=== PATIENT | female | born 1950 | race Caucasian/White ===

== ENCOUNTER 2016-11-27 11:26 | Inpatient (IN) | payer MEDICARE, OTHER ==
[2016-11-27] MEDS ORDERED: DEXTROSE 40% GEL 15 GM TUBE PO PRN (12:38)
[2016-11-27] MEDS ORDERED: DEXTROSE 40% GEL 15 GM TUBE X 2 PO PRN (12:38)
[2016-11-27] MEDS ORDERED: INSULIN LISPRO 100 UNIT/ML 3 ML VIAL SUBCUT PRN (12:38)
[2016-11-27] MEDS ORDERED: DEXTROSE 50%-WATER SYRINGE 25 GM/50 ML DOSE IV PRN (12:38)
[2016-11-27] MEDS ORDERED: DEXTROSE 50%-WATER SYRINGE 12.5 GM/25 ML DOSE IV PRN (12:38)
[2016-11-27] MEDS ORDERED: GLUCAGON,HUMAN RECOMB 1 MG INJ IM PRN (12:38)
--- NOTE | 2016-11-27 12:41 | RADIOLOGY REPORT (SQ) ---
EXAM DESCRIPTION: CHEST SINGLE VIEW COMPLETED DATE/TIME: 11/27/2016 12:27 pm REASON FOR STUDY: HYPOTENSION COMPARISON: 01/07/2016 EXAM PARAMETERS: NUMBER OF VIEWS: One view. TECHNIQUE: Single frontal radiographic view of the chest acquired. RADIATION DOSE: NA LIMITATIONS: None. FINDINGS: LUNGS AND PLEURA: No opacities, masses or pneumothorax. No pleural effusion. MEDIASTINUM AND HILAR STRUCTURES: No masses. Contour normal. HEART AND VASCULAR STRUCTURES: Heart normal in size. Normal vasculature. BONES: No acute findings. HARDWARE: None in the chest. OTHER: No other significant finding. IMPRESSION: NO ACUTE RADIOGRAPHIC FINDING IN THE CHEST. TECHNICAL DOCUMENTATION: JOB ID: [id number]
[2016-11-27] MEDS ORDERED: LEVOFLOXACIN 750 MG/D5W RTU 750 MG/150 ML RTUPB IV ONE (14:00)
[2016-11-27] MEDS: NORMAL SALINE 1000 ML 1,000 ML IV PRN (14:14)
[2016-11-27 14:23] LABS: ARTERIAL BLOOD BASE EXCESS -3.2 mmol/L; ARTERIAL BLOOD O2 SATURATION 96.4 % (94-98)
[2016-11-27 16:39] LABS: HEMATOCRIT 39.1 % (36.0-47.0); HEMOGLOBIN 13.5 g/dL (12.0-15.5); HGB HCT DIFFERENCE 1.4; MEAN CORPUSCULAR HEMOGLOBIN 32.7 pg (27.0-33.4); MEAN CORPUSCULAR HGB CONC 34.5 g/dL (32.0-36.0); MEAN CORPUSCULAR VOLUME 95 fl (80-97); RED BLOOD COUNT 4.13 10^6/uL (3.72-5.28); RED CELL DISTRIBUTION WIDTH 13.4 % (11.5-14.0); WHITE BLOOD COUNT 24.9 10^3/uL (4.0-10.5)
[2016-11-27 16:55] LABS: ALANINE AMINOTRANSFERASE 14 U/L (9-52); ALBUMIN 3.1 g/dL (3.5-5.0); ALKALINE PHOSPHATASE 60 U/L (38-126); ANION GAP 11 (5-19); ASPARTATE AMINO TRANSFERASE 27 U/L (14-36); BILIRUBIN,DIRECT 0.4 mg/dL (0.0-0.4); BILIRUBIN,TOTAL 0.5 mg/dL (0.2-1.3); BLOOD UREA NITROGEN 14 mg/dL (7-20); CALCIUM 9.6 mg/dL (8.4-10.2); CARBON DIOXIDE 24 mmol/L (22-30); CHLORIDE 91 mmol/L (98-107); CREATINE KINASE 290 U/L (30-135); CREATININE RESULT 0.77 mg/dL (0.52-1.25); GLUCOSE 111 mg/dL (75-110); POTASSIUM 4.9 mmol/L (3.6-5.0); SODIUM 125.8 mmol/L (137-145); TOTAL PROTEIN 6.8 g/dL (6.3-8.2)
[2016-11-27 17:07] LABS: CREATINE KINASE MB 3.28 ng/mL (<4.55)
[2016-11-27 17:12] LABS: TROPONIN I < 0.012 ng/mL
[2016-11-27 17:26] LABS: THYROID STIMULATING HORMONE 3.8 uIU/mL (0.47-4.68)
[2016-11-27] MEDS: NYSTATIN TOPICAL POWDER 15 GM TP SCH (18:14)
--- NOTE | 2016-11-27 18:59 | EKG REPORT ---
SEVERITY:- ABNORMAL ECG - SINUS TACHYCARDIA RIGHT BUNDLE BRANCH BLOCK ST DEPRESSION, CONSIDER ISCHEMIA, ANT-LAT LDS : Confirmed by: Tanya You MD 27-Nov-2016 18:58:05
[2016-11-27] MEDS ORDERED: (PENDING PHARMACY ID) (Levothyroxine Sodium [Synthroid] 125 MCG) PO SCH (21:00)
--- NOTE | 2016-11-27 21:15 | PDOC H&P ---
History of Present Illness Admission Date/PCP: 11/27/16 11:26 SHA BRAVO MD History of Present Illness: NGHIA DAVID is a 65 year old female, She has history of morbid obesity, the body mass index 43.2, seizure disorder, type 2 diabetes mellitus she was brought to the office today by her for evaluation of this patient, suspect that she may have UTI, she has bedsores. She is essentially nonambulatory and self neglect as well , said she would not get out of bed,. She does not take any shower, in the office she was evaluated she has stage II sacral pressure ulcer she has offensive body odor especially in the perineum ,smell like yeast infection, she was admitted directly from the office to the hospital. The hemogram showed WBC of 24,000 the potential source of the infection is the urine the urine appearance looks cloudy there was also hyponatremia,CXR she was clear suggesting no pneumonia ABG was normal. Past Medical History Cardiac Medical History: Reports: Hypertension Neurological Medical History: Reports: Seizures - BED PADDED ON BOTH SIDES Endocrine Medical History: Reports: Diabetes Mellitus Type 2, Hypothyroidism Renal/ Medical History: Denies: End Stage Renal Disease Musculoskeltal Medical History: Reports: Arthritis Psychiatric Medical History: Reports: Depression Past Surgical History Past Surgical History: Reports: Cholecystectomy, Orthopedic Surgery - Toe surgery, Tonsillectomy Denies: Hysterectomy Social History Smoking Status: Former Smoker Number of Years Smokin Last Time Smoked: 05/03/1992 Frequency of Alcohol Use: None Hx Recreational Drug Use: No Drugs: None Hx Prescription Drug Abuse: No Family History Family History: Reviewed & Not Pertinent Parental Family History Reviewed: Yes Children Family History Reviewed: Yes Sibling(s) Family History Reviewed.: Yes Medication/Allergy Home Medications: Aspirin [Ecotrin 81 mg EC Tablet] 81 mg PO DAILY 03/12/12 Trazodone HCl 100 mg PO QHS 05/02/15 Omeprazole 40 mg PO DAILY 06/29/15 Divalproex Sodium [Divalproex Sodium ER] 250 mg PO Q6 11/27/16 Levothyroxine Sodium [Synthroid] 125 mcg PO DAILY 11/27/16 Allergies/Adverse Reactions: erythromycin base [Erythromycin Base] Allergy (Verified 05/02/15 00:44) Iodinated Contrast- Oral and IV Dye [IV Dye, Iodine Containing] Allergy ( Verified 05/02/15 00:44) Review of Systems Constitutional: PRESENT: chills, weight gain Eyes: ABSENT: visual disturbances Ears: ABSENT: hearing changes Cardiovascular: ABSENT: chest pain, dyspnea on exertion, edema, orthropnea, palpitations Respiratory: ABSENT: cough, hemoptysis Gastrointestinal: ABSENT: abdominal pain, constipation, diarrhea, hematemesis, hematochezia, nausea, vomiting Genitourinary: ABSENT: dysuria, hematuria Musculoskeletal: ABSENT: joint swelling Integumentary: ABSENT: rash, wounds Neurological: PRESENT: tingling. ABSENT: abnormal gait, abnormal speech, confusion, dizziness, focal weakness, syncope Psychiatric: ABSENT: anxiety, depression, homidical ideation, suicidal ideation Endocrine: ABSENT: cold intolerance, heat intolerance, menstrual abnormalities, polydipsia, polyuria Hematologic/Lymphatic: ABSENT: easy bleeding, easy bruising, lymphadenopathy Physical Exam Vital Signs: Temp Pulse Resp BP Pulse Ox 97.7 F 110 H 20 131/90 H 99 11/27/16 15:33 11/27/16 15:33 11/27/16 15:33 11/27/16 15:33 11/27/16 15:33 Intake & Output 11/26/16 11/27/16 11/28/16 06:59 06:59 06:59 Intake Total 324 Balance 324 Weight 114.2 kg General appearance: PRESENT: obese Head exam: PRESENT: atraumatic, normocephalic Eye exam: PRESENT: PERRLA Mouth exam: PRESENT: dry mucosa Respiratory exam: PRESENT: clear to auscultation luna Cardiovascular exam: PRESENT: RRR, +S1, +S2 Vascular exam: PRESENT: normal capillary refill GI/Abdominal exam: PRESENT: normal bowel sounds, soft Rectal exam: PRESENT: deferred Gentrourinary exam: PRESENT: other - Erythema intertrigo Extremities exam: PRESENT: other Neurological exam: PRESENT: alert, CN II-XII grossly intact Psychiatric exam: PRESENT: flat affect Skin exam: PRESENT: dry, intact, mottled, pallor, skin tears, warm, other - Stage II pressure ulcers in the sacrum Results Laboratory Results: 11/27/16 16:15 11/27/16 16:15 11/27/16 11/27/16 11/27/16 13:10 16:15 16:15 WBC 24.9 H RBC 4.13 Hgb 13.5 Hct 39.1 MCV 95 MCH 32.7 MCHC 34.5 RDW 13.4 Plt Count 353 Carbonic Acid 1.17 HCO3/H2CO3 Ratio 18:1 ABG pH 7.37 ABG pCO2 38.9 ABG pO2 87.3 ABG HCO3 21.7 ABG O2 Saturation 96.4 ABG Base Excess -3.2 FiO2 ROOM AIR Sodium 125.8 L Potassium 4.9 Chloride 91 L Carbon Dioxide 24 Anion Gap 11 BUN 14 Creatinine 0.77 Est GFR ( Amer) > 60 Est GFR (Non-Af Amer) > 60 Glucose 111 H Calcium 9.6 Total Bilirubin 0.5 AST 27 ALT 14 Alkaline Phosphatase 60 Total Protein 6.8 Albumin 3.1 L TSH Free T4 11/27/16 16:15 WBC RBC Hgb Hct MCV MCH MCHC RDW Plt Count Carbonic Acid HCO3/H2CO3 Ratio ABG pH ABG pCO2 ABG pO2 ABG HCO3 ABG O2 Saturation ABG Base Excess FiO2 Sodium Potassium Chloride Carbon Dioxide Anion Gap BUN Creatinine Est GFR ( Amer) Est GFR (Non-Af Amer) Glucose Calcium Total Bilirubin AST ALT Alkaline Phosphatase Total Protein Albumin TSH 3.80 Free T4 1.43 11/27/16 11/27/16 16:15 16:15 Creatine Kinase 290 H CK-MB (CK-2) 3.28 Troponin I < 0.012 Impressions: Chest X-Ray 11/27/16 11:52 IMPRESSION: NO ACUTE RADIOGRAPHIC FINDING IN THE CHEST. Assessment & Plan - Diagnosis (1) Urinary tract infection Qualifiers: Urinary tract infection type: acute cystitis Hematuria presence: without hematuria Qualified Code(s): N30.00 - Acute cystitis without hematuria Is this a current diagnosis for this admission?: Yes (2) Leukemoid reaction Is this a current diagnosis for this admission?: YesPlan: She has elevated white blood cell count most likely due to infection from UTI she will empirically be treated with IV antibiotic (3) Sacral pressure ulcer Qualifiers: Pressure ulcer stage: stage 2 Qualified Code(s): L89.152 - Pressure ulcer of sacral region, stage 2 Is this a current diagnosis for this admission?: Yes (4) Hypothyroidism Qualifiers: Hypothyroidism type: acquired Qualified Code(s): E03.9 - Hypothyroidism, unspecified Is this a current diagnosis for this admission?: Yes (5) Hyponatremia Is this a current diagnosis for this admission?: Yes
[2016-11-27] MEDS ORDERED: ASPIRIN 81 MG TABLET, ENT COATED PO ONE (22:00)
[2016-11-27] MEDS ORDERED: ENOXAPARIN SODIUM INJ 40 MG/0.4 ML DISP.SYRIN SUBCUT ONE (22:00)
[2016-11-27 22:30] LABS: THYROID STIMULATING HORMONE 6.09 uIU/mL (0.47-4.68)
[2016-11-27] MEDS ORDERED: LANSOPRAZOLE 30 MG TAB.RAP.DR PO ONE (22:30)
[2016-11-27] MEDS: TRAZODONE HCL 50 MG TABLET PO SCH (22:56)
[2016-11-28 00:38] LABS: HEMATOCRIT 33.8 % (36.0-47.0); HEMOGLOBIN 11.8 g/dL (12.0-15.5); HGB HCT DIFFERENCE 1.6; MEAN CORPUSCULAR HEMOGLOBIN 32.9 pg (27.0-33.4); MEAN CORPUSCULAR HGB CONC 34.9 g/dL (32.0-36.0); MEAN CORPUSCULAR VOLUME 94 fl (80-97); RED BLOOD COUNT 3.58 10^6/uL (3.72-5.28); RED CELL DISTRIBUTION WIDTH 13.4 % (11.5-14.0); WHITE BLOOD COUNT 15.9 10^3/uL (4.0-10.5)
[2016-11-28] MEDS: DIVALPROEX SODIUM 250 MG TAB.SR.24H PO SCH ×5 (00:40→23:01)
[2016-11-28 00:49] LABS: PROTHROMBIN TIME 14.4 SEC (11.4-15.4)
[2016-11-28 00:50] LABS: PARTIAL THROMBOPLASTIN TIME 39.4 SEC (23.5-35.8)
[2016-11-28 01:04] LABS: CREATININE RESULT 0.82 mg/dL (0.52-1.25)
[2016-11-28 01:43] LABS: CREATINE KINASE MB 4.55 ng/mL (<4.55)
[2016-11-28 01:46] LABS: TROPONIN I < 0.012 ng/mL
[2016-11-28] MEDS: NORMAL SALINE 1000 ML 1,000 ML IV PRN (02:47)
[2016-11-28 03:18] LABS: APPEARANCE,URINE SLIGHTLY-CLOUDY; BILIRUBIN,URINE NEGATIVE (NEGATIVE); GLUCOSE, URINE NEGATIVE (NEGATIVE); KETONES,URINE TRACE mg/dL (NEGATIVE); LEUKOCYTE ESTERASE,URINE TRACE (NEGATIVE); NITRITE,URINE NEGATIVE (NEGATIVE); PROTEIN,URINE NEGATIVE (NEGATIVE); URINE SPECIFIC GRAVITY 1.023; UROBILINOGEN,URINE NEGATIVE mg/dL (<2.0)
[2016-11-28] MEDS: LANSOPRAZOLE 30 MG TAB.RAP.DR PO SCH (06:47)
[2016-11-28] MEDS: ASPIRIN 81 MG TABLET, ENT COATED PO SCH (08:53)
[2016-11-28] MEDS: LEVOTHYROXINE SODIUM 0.1 MG TABLET PO SCH (08:54)
[2016-11-28] MEDS: LEVOTHYROXINE SODIUM 0.025 MG TABLET PO SCH (08:54)
[2016-11-28] MEDS: LEVOFLOXACIN 750 MG/D5W RTU 750 MG/150 ML RTUPB IV SCH (08:54)
[2016-11-28] MEDS: ENOXAPARIN SODIUM INJ 40 MG/0.4 ML DISP.SYRIN SUBCUT SCH (08:55)
[2016-11-28] MEDS: NYSTATIN TOPICAL POWDER 15 GM TP SCH ×2 (09:03→18:19)
[2016-11-28 09:43] LABS: CREATINE KINASE MB 3.04 ng/mL (<4.55); TROPONIN I 0.016 ng/mL
--- NOTE | 2016-11-28 15:12 | PDOC PROGRESS REPORT ---
Subjective Progress Note for:: 11/28/16 Subjective:: Patient denied any fever or chills. No chest pain or difficulty with breathing. No nausea, vomiting or abdominal pain. Appetite and p.o intake remain poor. Physical Exam Vital Signs: Temp Pulse Resp BP Pulse Ox 98.3 F 73 18 114/71 100 11/28/16 11:13 11/28/16 11:13 11/28/16 11:13 11/28/16 11:13 11/28/16 11:13 Intake & Output 11/27/16 11/28/16 11/29/16 06:59 06:59 06:59 Intake Total 1682 236 Output Total 200 50 Balance 1482 186 Weight 119 kg General appearance: PRESENT: no acute distress, cooperative, morbidly obese Head exam: PRESENT: atraumatic, normocephalic Eye exam: PRESENT: EOMI, PERRLA Mouth exam: PRESENT: moist Respiratory exam: PRESENT: clear to auscultation luna, decreased breath sounds - at lung bases Cardiovascular exam: PRESENT: RRR, +S1, +S2 Vascular exam: PRESENT: normal capillary refill. ABSENT: pallor GI/Abdominal exam: PRESENT: normal bowel sounds, soft. ABSENT: distended, guarding, mass, organolmegaly, rebound, tenderness Extremities exam: PRESENT: pedal edema Musculoskeletal exam: PRESENT: deformity - due to multiple joints involvement with arthritis, tenderness - palpation of her legs. ABSENT: ambulatory Neurological exam: PRESENT: alert, awake, oriented to person, oriented to place , oriented to time, oriented to situation, CN II-XII grossly intact. ABSENT: motor sensory deficit Psychiatric exam: PRESENT: appropriate affect, normal mood. ABSENT: homicidal ideation, suicidal ideation Skin exam: PRESENT: dry, erythema - left leg with expressed tenderness to palpation., warm Results Laboratory Results: 11/28/16 00:28 11/28/16 00:28 11/27/16 11/27/16 11/27/16 16:15 16:15 16:15 WBC 24.9 H RBC 4.13 Hgb 13.5 Hct 39.1 MCV 95 MCH 32.7 MCHC 34.5 RDW 13.4 Plt Count 353 Sodium 125.8 L Potassium 4.9 Chloride 91 L Carbon Dioxide 24 Anion Gap 11 BUN 14 Creatinine 0.77 Est GFR ( Amer) > 60 Est GFR (Non-Af Amer) > 60 Glucose 111 H Calcium 9.6 Total Bilirubin 0.5 AST 27 ALT 14 Alkaline Phosphatase 60 Total Protein 6.8 Albumin 3.1 L TSH 3.80 Free T4 1.43 Urine Color Urine Appearance Urine pH Ur Specific [place] Urine Protein Urine Glucose (UA) Urine Ketones Urine Blood Urine Nitrite Ur Leukocyte Esterase Urine WBC (Auto) Urine RBC (Auto) 11/27/16 11/28/16 11/28/16 16:15 00:28 00:28 WBC 15.9 H RBC 3.58 L Hgb 11.8 L Hct 33.8 L MCV 94 MCH 32.9 MCHC 34.9 RDW 13.4 Plt Count 351 Sodium Potassium Chloride Carbon Dioxide Anion Gap BUN Creatinine 0.82 Est GFR ( Amer) > 60 Est GFR (Non-Af Amer) > 60 Glucose Calcium Total Bilirubin AST ALT Alkaline Phosphatase Total Protein Albumin TSH 6.09 H Free T4 1.78 Urine Color Urine Appearance Urine pH Ur Specific [place] Urine Protein Urine Glucose (UA) Urine Ketones Urine Blood Urine Nitrite Ur Leukocyte Esterase Urine WBC (Auto) Urine RBC (Auto) 11/28/16 02:45 WBC RBC Hgb Hct MCV MCH MCHC RDW Plt Count Sodium Potassium Chloride Carbon Dioxide Anion Gap BUN Creatinine Est GFR ( Amer) Est GFR (Non-Af Amer) Glucose Calcium Total Bilirubin AST ALT Alkaline Phosphatase Total Protein Albumin TSH Free T4 Urine Color YELLOW Urine Appearance SLIGHTLY-CLOUDY Urine pH 6.0 Ur Specific [place] 1.023 Urine Protein NEGATIVE Urine Glucose (UA) NEGATIVE Urine Ketones TRACE H Urine Blood NEGATIVE Urine Nitrite NEGATIVE Ur Leukocyte Esterase TRACE H Urine WBC (Auto) 13 Urine RBC (Auto) 6 11/27/16 11/27/16 11/28/16 16:15 16:15 00:28 Creatine Kinase 290 H 742 H CK-MB (CK-2) 3.28 Troponin I < 0.012 11/28/16 11/28/16 11/28/16 00:28 08:26 08:26 Creatine Kinase 779 H CK-MB (CK-2) 4.55 3.04 Troponin I < 0.012 0.016 Impressions: Chest X-Ray 11/27/16 11:52 IMPRESSION: NO ACUTE RADIOGRAPHIC FINDING IN THE CHEST. Assessment & Plan - Diagnosis (1) Urinary tract infection Qualifiers: Urinary tract infection type: acute cystitis Hematuria presence: without hematuria Qualified Code(s): N30.00 - Acute cystitis without hematuria Is this a current diagnosis for this admission?: YesPlan: Continue on IV Levofloxacin coverage. Follow up on blood and urine culture findings. (2) Sacral pressure ulcer Qualifiers: Pressure ulcer stage: stage 2 Qualified Code(s): L89.152 - Pressure ulcer of sacral region, stage 2 Is this a current diagnosis for this admission?: YesPlan: Continue current supportive care. Encourage to increase p.o intake. (3) Hyponatremia Is this a current diagnosis for this admission?: YesPlan: Continue IV fluid support. Follow up on BMP in AM. (4) Hypothyroidism Qualifiers: Hypothyroidism type: acquired Qualified Code(s): E03.9 - Hypothyroidism, unspecified Is this a current diagnosis for this admission?: YesPlan: Continue current mediation management. - Time Time Spent with patient: 25-34 minutes Medications reviewed and adjusted accordingly: Yes Anticipated discharge: Home with Homehealth Within: Other - Inpatient Certification Based on my medical assessment, after consideration of the patient's comorbidities, presenting symptoms, or acuity I expect that the services needed warrant INPATIENT care.: Yes I certify that my determination is in accordance with my understanding of Medicare's requirements for reasonable and necessary INPATIENT services [42 CFR 412.3e].: Yes Medical Necessity: Need Close Monitoring Due to Risk of Patient Decompensation, Need For IV Fluids, Need For Continuous Telemetry Monitoring, Need for IV Antibiotics, Risk of Complication if Not Cared For in Hospital Post Hospital Care: D/C Director Of Philanthropy 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
[2016-11-28] MEDS: TRAZODONE HCL 50 MG TABLET PO SCH (22:59)
[2016-11-29] MEDS: NORMAL SALINE 1000 ML 1,000 ML IV PRN (01:34)
[2016-11-29] MEDS: DIVALPROEX SODIUM 250 MG TAB.SR.24H PO SCH ×3 (07:08→18:34)
[2016-11-29] MEDS: LANSOPRAZOLE 30 MG TAB.RAP.DR PO SCH (07:09)
[2016-11-29] MEDS: ASPIRIN 81 MG TABLET, ENT COATED PO SCH (09:36)
[2016-11-29] MEDS: LEVOFLOXACIN 750 MG/D5W RTU 750 MG/150 ML RTUPB IV SCH (09:36)
[2016-11-29] MEDS: LEVOTHYROXINE SODIUM 0.025 MG TABLET PO SCH (09:36)
[2016-11-29] MEDS: LEVOTHYROXINE SODIUM 0.1 MG TABLET PO SCH (09:36)
[2016-11-29] MEDS: ENOXAPARIN SODIUM INJ 40 MG/0.4 ML DISP.SYRIN SUBCUT SCH (09:37)
[2016-11-29] MEDS: NYSTATIN TOPICAL POWDER 15 GM TP SCH ×2 (09:38→18:34)
--- NOTE | 2016-11-29 14:06 | PDOC PROGRESS REPORT ---
Subjective Progress Note for:: 11/29/16 Subjective:: No fever or chills. No chest pain or difficulty with breathing. No nausea, vomiting or abdominal pain. Appetite and p.o intake remain poor. Patient expressed poor appetite and dislike for hospital food. she reported right shoulder joint pain since her spouse pull on her joint in attempt to assist in her transfer at home. Physical Exam Vital Signs: Temp Pulse Resp BP Pulse Ox 98.1 F 63 20 118/46 L 95 11/29/16 11:27 11/29/16 11:27 11/29/16 11:27 11/29/16 11:27 11/29/16 11:27 Intake & Output 11/28/16 11/29/16 11/30/16 06:59 06:59 06:59 Intake Total 1682 2824 222 Output Total 200 1150 600 Balance 1482 1674 -378 Weight 119 kg 119.7 kg Physical Exam: General appearance: PRESENT: no acute distress, cooperative, morbidly obese Head exam: PRESENT: atraumatic, normocephalic Eye exam: PRESENT: EOMI, PERRLA Mouth exam: PRESENT: moist Respiratory exam: PRESENT: clear to auscultation luna, decreased breath sounds - at lung bases Cardiovascular exam: PRESENT: RRR, +S1, +S2 Vascular exam: PRESENT: normal capillary refill. ABSENT: pallor GI/Abdominal exam: PRESENT: normal bowel sounds, soft. ABSENT: distended, guarding, mass, organomegaly, rebound, tenderness Extremities exam: PRESENT: pedal edema Musculoskeletal exam: PRESENT: deformity - due to multiple joints involvement with arthritis, tenderness - palpation of her legs. ABSENT: ambulatory Neurological exam: PRESENT: alert, awake, oriented to person, oriented to place , oriented to time, oriented to situation, CN II-XII grossly intact. ABSENT: motor sensory deficit Psychiatric exam: PRESENT: appropriate affect, normal mood. ABSENT: homicidal ideation, suicidal ideation Skin exam: PRESENT: dry, erythema - left leg with expressed less tenderness to palpation, less warmth to touch Results Laboratory Results: 11/28/16 00:28 11/28/16 00:28 11/27/16 15:25 Catheterized Urine Urine Culture - Final NO GROWTH 2 DAYS 11/27/16 11/27/16 11/28/16 16:15 16:15 00:28 Creatine Kinase 290 H 742 H CK-MB (CK-2) 3.28 Troponin I < 0.012 11/28/16 11/28/16 11/28/16 00:28 08:26 08:26 Creatine Kinase 779 H CK-MB (CK-2) 4.55 3.04 Troponin I < 0.012 0.016 Impressions: Chest X-Ray 11/27/16 11:52 IMPRESSION: NO ACUTE RADIOGRAPHIC FINDING IN THE CHEST. Assessment & Plan - Diagnosis (1) Urinary tract infection Qualifiers: Urinary tract infection type: acute cystitis Hematuria presence: without hematuria Qualified Code(s): N30.00 - Acute cystitis without hematuria Is this a current diagnosis for this admission?: Yes (2) Sacral pressure ulcer Qualifiers: Pressure ulcer stage: stage 2 Qualified Code(s): L89.152 - Pressure ulcer of sacral region, stage 2 Is this a current diagnosis for this admission?: Yes (3) Hyponatremia Is this a current diagnosis for this admission?: Yes (4) Hypothyroidism Qualifiers: Hypothyroidism type: acquired Qualified Code(s): E03.9 - Hypothyroidism, unspecified Is this a current diagnosis for this admission?: Yes (5) Pain, joint, shoulder, right Is this a current diagnosis for this admission?: YesPlan: See covering attending physician orders. - Time Time Spent with patient: 25-34 minutes Medications reviewed and adjusted accordingly: Yes Anticipated discharge: Home with Homehealth Within: Other - Inpatient Certification Based on my medical assessment, after consideration of the patient's comorbidities, presenting symptoms, or acuity I expect that the services needed warrant INPATIENT care.: Yes I certify that my determination is in accordance with my understanding of Medicare's requirements for reasonable and necessary INPATIENT services [42 CFR 412.3e].: Yes Medical Necessity: Need Close Monitoring Due to Risk of Patient Decompensation, Need For IV Fluids, Need For Continuous Telemetry Monitoring, Need for IV Antibiotics, Risk of Complication if Not Cared For in Hospital Post Hospital Care: D/C Benefits Officer Documentation - Plan Summary Plan Summary: Obtain right shoulder joint X ray. Continue IV Levofloxacin coverage. Start on nutritional oral supplementation. Encouraged participation in physical therapy. Maintain on all other current medication management.
--- NOTE | 2016-11-29 15:33 | RADIOLOGY REPORT (SQ) ---
EXAM DESCRIPTION: SHOULDER RIGHT 2 OR MORE VIEWS COMPLETED DATE/TIME: 11/29/2016 3:03 pm REASON FOR STUDY: Right shoulder joint pain COMPARISON: None. NUMBER OF VIEWS: Three views. TECHNIQUE: Internal rotation, external rotation, and Y view images acquired of the right shoulder. LIMITATIONS: None. FINDINGS: MINERALIZATION: Osteopenia. BONES: No acute fracture or dislocation. No worrisome bone lesions. Osteophytes glenohumeral joint. GLENOHUMERAL JOINT: See above. ACROMIOCLAVICULAR JOINT: No large osteophytes. SOFT TISSUES: No calcifications. VISUALIZED RIBS, SPINE, AND LUNG: No other significant finding. OTHER: No other significant finding. IMPRESSION: Glenohumeral joint arthropathy. TECHNICAL DOCUMENTATION: JOB ID: [id number] [employer]- All Rights Reserved
[2016-11-30] MEDS: DIVALPROEX SODIUM 250 MG TAB.SR.24H PO SCH ×5 (00:51→23:39)
[2016-11-30] MEDS: TRAZODONE HCL 50 MG TABLET PO SCH ×2 (01:02→21:49)
[2016-11-30] MEDS: NORMAL SALINE 1000 ML 1,000 ML IV PRN ×2 (01:02→10:33)
[2016-11-30] MEDS: LANSOPRAZOLE 30 MG TAB.RAP.DR PO SCH (06:24)
[2016-11-30] MEDS: LEVOFLOXACIN 750 MG/D5W RTU 750 MG/150 ML RTUPB IV SCH (10:32)
[2016-11-30] MEDS: LEVOTHYROXINE SODIUM 0.1 MG TABLET PO SCH (10:33)
[2016-11-30] MEDS: ASPIRIN 81 MG TABLET, ENT COATED PO SCH (10:33)
[2016-11-30] MEDS: LEVOTHYROXINE SODIUM 0.025 MG TABLET PO SCH (10:33)
[2016-11-30] MEDS: ENOXAPARIN SODIUM INJ 40 MG/0.4 ML DISP.SYRIN SUBCUT SCH (10:33)
[2016-11-30] MEDS: NYSTATIN TOPICAL POWDER 15 GM TP SCH ×2 (10:33→18:05)
[2016-11-30 13:15] LABS: HEMATOCRIT 34.3 % (36.0-47.0); HEMOGLOBIN 12.1 g/dL (12.0-15.5); MEAN CORPUSCULAR HEMOGLOBIN 33.4 pg (27.0-33.4); MEAN CORPUSCULAR HGB CONC 35.2 g/dL (32.0-36.0); MEAN CORPUSCULAR VOLUME 95 fl (80-97); RED BLOOD COUNT 3.61 10^6/uL (3.72-5.28); RED CELL DISTRIBUTION WIDTH 13.3 % (11.5-14.0); WHITE BLOOD COUNT 8.7 10^3/uL (4.0-10.5)
[2016-11-30 13:38] LABS: ALANINE AMINOTRANSFERASE 13 U/L (9-52); ALBUMIN 2.6 g/dL (3.5-5.0); ALKALINE PHOSPHATASE 43 U/L (38-126); ANION GAP 6 (5-19); ASPARTATE AMINO TRANSFERASE 25 U/L (14-36); BILIRUBIN,DIRECT 0.4 mg/dL (0.0-0.4); BILIRUBIN,TOTAL 0.4 mg/dL (0.2-1.3); BLOOD UREA NITROGEN 9 mg/dL (7-20); CARBON DIOXIDE 27 mmol/L (22-30); CHLORIDE 98 mmol/L (98-107); CREATININE RESULT 0.64 mg/dL (0.52-1.25); GLUCOSE 98 mg/dL (75-110); POTASSIUM 4.2 mmol/L (3.6-5.0); SODIUM 131.4 mmol/L (137-145)
[2016-11-30 13:45] LABS: BAND NEUTROPHILS % (MANUAL) 1 % (3-5); BASOPHILS % (MANUAL) 0 % (0-2); EOSINOPHILS % (MANUAL) 1 % (0-6); LYMPHOCYTES % (MANUAL) 35 % (13-45); TOTAL CELLS COUNTED 100
[2016-11-30 13:46] LABS: RBC MORPHOLOGY COMMENT NORMO-CYTIC/CHROMIC
--- NOTE | 2016-11-30 19:45 | PDOC PROGRESS REPORT ---
Subjective Progress Note for:: 11/30/16 Subjective:: She was seen by the bedside, she complains of pain in the right shoulder joint. X-ray of the shoulder joint was done today and it showed osteoarthritis of the shoulder. She will be given injection in the shoulder tomorrow. She was admitted because of leukocytosis associated with UTI. The white blood cell count is down from over 20,000 when she was admitted. The plan is to transfer to [facility] ,consultation will be requested from discharge planning Physical Exam Vital Signs: Temp Pulse Resp BP Pulse Ox 98.0 F 66 18 115/55 L 95 11/30/16 15:50 11/30/16 15:50 11/30/16 15:50 11/30/16 15:50 11/30/16 15:50 Intake & Output 11/29/16 11/30/16 12/01/16 06:59 06:59 06:59 Intake Total 2824 3157 1946 Output Total 1150 2075 600 Balance 1674 1082 1346 Weight 119.7 kg 120.4 kg General appearance: PRESENT: no acute distress Eye exam: PRESENT: PERRLA Respiratory exam: PRESENT: clear to auscultation luna Cardiovascular exam: PRESENT: +S1, +S2 GI/Abdominal exam: PRESENT: soft Extremities exam: PRESENT: tenderness - There is tenderness in the right shoulder Neurological exam: PRESENT: alert Results Laboratory Results: 11/30/16 13:03 11/30/16 13:03 11/30/16 11/30/16 13:03 13:03 WBC 8.7 RBC 3.61 L Hgb 12.1 Hct 34.3 L MCV 95 MCH 33.4 MCHC 35.2 RDW 13.3 Plt Count 321 Seg Neutrophils % Not Reportable Lymphocytes % Not Reportable Monocytes % Not Reportable Eosinophils % Not Reportable Basophils % Not Reportable Absolute Neutrophils Not Reportable Absolute Lymphocytes Not Reportable Absolute Monocytes Not Reportable Absolute Eosinophils Not Reportable Absolute Basophils Not Reportable Sodium 131.4 L Potassium 4.2 Chloride 98 Carbon Dioxide 27 Anion Gap 6 BUN 9 Creatinine 0.64 Est GFR ( Amer) > 60 Est GFR (Non-Af Amer) > 60 Glucose 98 Calcium 9.0 Total Bilirubin 0.4 AST 25 ALT 13 Alkaline Phosphatase 43 Total Protein 6.0 L Albumin 2.6 L 11/27/16 11/27/16 11/28/16 16:15 16:15 00:28 Creatine Kinase 290 H 742 H CK-MB (CK-2) 3.28 Troponin I < 0.012 11/28/16 11/28/16 11/28/16 00:28 08:26 08:26 Creatine Kinase 779 H CK-MB (CK-2) 4.55 3.04 Troponin I < 0.012 0.016 Impressions: Chest X-Ray 11/27/16 11:52 IMPRESSION: NO ACUTE RADIOGRAPHIC FINDING IN THE CHEST. Shoulder X-Ray 11/29/16 00:00 IMPRESSION: Glenohumeral joint arthropathy. Assessment & Plan - Diagnosis (1) Urinary tract infection Qualifiers: Urinary tract infection type: acute cystitis Hematuria presence: without hematuria Qualified Code(s): N30.00 - Acute cystitis without hematuria Is this a current diagnosis for this admission?: Yes (2) Leukemoid reaction Is this a current diagnosis for this admission?: Yes (3) Sacral pressure ulcer Qualifiers: Pressure ulcer stage: stage 2 Qualified Code(s): L89.152 - Pressure ulcer of sacral region, stage 2 Is this a current diagnosis for this admission?: Yes (4) Hypothyroidism Qualifiers: Hypothyroidism type: acquired Qualified Code(s): E03.9 - Hypothyroidism, unspecified Is this a current diagnosis for this admission?: Yes (5) Hyponatremia Is this a current diagnosis for this admission?: Yes - Plan Summary Plan Summary: The hyponatremia has improved, white blood cell count is down, patient continues to improve gradually. Hopefully she be transferred to alf for rehabilitation the next few days. Consultation will be requested from discharge planning to make arrangements for alf placement.
[2016-12-01] MEDS: NORMAL SALINE 1000 ML 1,000 ML IV PRN ×2 (01:40→23:57)
[2016-12-01] MEDS: DIVALPROEX SODIUM 250 MG TAB.SR.24H PO SCH ×4 (05:56→23:41)
[2016-12-01] MEDS: LANSOPRAZOLE 30 MG TAB.RAP.DR PO SCH (05:56)
[2016-12-01] MEDS: LEVOFLOXACIN 750 MG/D5W RTU 750 MG/150 ML RTUPB IV SCH (09:18)
[2016-12-01] MEDS: LEVOTHYROXINE SODIUM 0.025 MG TABLET PO SCH (09:18)
[2016-12-01] MEDS: ASPIRIN 81 MG TABLET, ENT COATED PO SCH (09:18)
[2016-12-01] MEDS: LEVOTHYROXINE SODIUM 0.1 MG TABLET PO SCH (09:18)
[2016-12-01] MEDS: NYSTATIN TOPICAL POWDER 15 GM TP SCH ×2 (12:41→18:29)
[2016-12-01] MEDS ORDERED: METHYLPREDNISOLONE ACETATE INJ 80 MG/1 ML VIAL IM PRN (16:55)
[2016-12-01] MEDS ORDERED: LIDOCAINE 1% INJ-PF (10 MG/ML) 30 ML SDV INJ PRN (16:56)
[2016-12-01] MEDS ORDERED: ETHYL CHLORIDE SPRAY 103.5 ML/BOTTLE TP PRN (17:20)
--- NOTE | 2016-12-01 20:21 | Operative Report ---
Operative Report DATE OF SURGERY: 12/01/16 Operative Report: The right shoulder was cleansed with alcohol swab, the skin was anesthetized with Ethyl chloride spray, 80 mg of Depo-Medrol with 5 cc of lidocaine was injected into the subacromial space without complication PREOPERATIVE DIAGNOSIS: Osteoarthritis of the right shoulder OPERATION: Arthrocentesis of the right shoulder with subacromial injection of Depo-Medrol with lidocaine SURGEON: SHA BRAVO ANESTHESIA: Local COMPLICATIONS: None
--- NOTE | 2016-12-01 20:48 | PDOC PROGRESS REPORT ---
Subjective Progress Note for:: 12/01/16 Subjective:: Patient was seen by the bedside today, she still complaining of pain in the right shoulder. She was given 80 mg of Depo-Medrol with 5 cc of lidocaine into the right shoulder today in the anterior approach and injected into the subacromial space without complications. I was told today that she now have a bed at [facility] so hopefully should be discharged to prison tomorrow Physical Exam Vital Signs: Temp Pulse Resp BP Pulse Ox 98.2 F 71 21 H 137/55 H 95 12/01/16 15:10 12/01/16 15:10 12/01/16 15:10 12/01/16 15:10 12/01/16 15:10 Intake & Output 11/30/16 12/01/16 12/02/16 06:59 06:59 06:59 Intake Total 3157 3696 1995 Output Total 2075 1450 1200 Balance 1082 2246 795 Weight 120.4 kg 122.1 kg General appearance: PRESENT: no acute distress Eye exam: PRESENT: PERRLA Respiratory exam: PRESENT: clear to auscultation luna Cardiovascular exam: PRESENT: +S1, +S2 GI/Abdominal exam: PRESENT: soft Neurological exam: PRESENT: alert Results Laboratory Results: 11/30/16 13:03 11/30/16 13:03 11/27/16 11/27/16 11/28/16 16:15 16:15 00:28 Creatine Kinase 290 H 742 H CK-MB (CK-2) 3.28 Troponin I < 0.012 11/28/16 11/28/16 11/28/16 00:28 08:26 08:26 Creatine Kinase 779 H CK-MB (CK-2) 4.55 3.04 Troponin I < 0.012 0.016 Impressions: Chest X-Ray 11/27/16 11:52 IMPRESSION: NO ACUTE RADIOGRAPHIC FINDING IN THE CHEST. Shoulder X-Ray 11/29/16 00:00 IMPRESSION: Glenohumeral joint arthropathy. Assessment & Plan - Diagnosis (1) Urinary tract infection Qualifiers: Urinary tract infection type: acute cystitis Hematuria presence: without hematuria Qualified Code(s): N30.00 - Acute cystitis without hematuria Is this a current diagnosis for this admission?: Yes (2) Leukemoid reaction Is this a current diagnosis for this admission?: Yes (3) Sacral pressure ulcer Qualifiers: Pressure ulcer stage: stage 2 Qualified Code(s): L89.152 - Pressure ulcer of sacral region, stage 2 Is this a current diagnosis for this admission?: Yes (4) Hypothyroidism Qualifiers: Hypothyroidism type: acquired Qualified Code(s): E03.9 - Hypothyroidism, unspecified Is this a current diagnosis for this admission?: Yes (5) Hyponatremia Is this a current diagnosis for this admission?: Yes (6) Primary osteoarthritis of right shoulder Is this a current diagnosis for this admission?: Yes
--- NOTE | 2016-12-01 20:56 | PDOC TRANSFER SUMMARY ---
General - Admit/Disc Date/PCP Admission Date/Primary Care Provider: 11/27/16 11:26 SHA BRAVO MD Discharge Date: 12/02/16 - Discharge Diagnosis (1) Urinary tract infection Is this a current diagnosis for this admission?: Yes (2) Leukemoid reaction Is this a current diagnosis for this admission?: Yes (3) Sacral pressure ulcer Is this a current diagnosis for this admission?: Yes (4) Hypothyroidism Is this a current diagnosis for this admission?: Yes (5) Hyponatremia Is this a current diagnosis for this admission?: Yes (6) Primary osteoarthritis of right shoulder Is this a current diagnosis for this admission?: Yes - Additional Information Discharge Activity: Activity As Tolerated Home Medications: Aspirin [Ecotrin 81 mg EC Tablet] 81 mg PO DAILY 03/12/12 Trazodone HCl 100 mg PO QHS 05/02/15 Omeprazole 40 mg PO DAILY 06/29/15 Divalproex Sodium [Divalproex Sodium ER] 250 mg PO Q6 11/27/16 Levothyroxine Sodium [Synthroid] 125 mcg PO DAILY 11/27/16 Metformin HCl [Metformin HCl ER] 500 mg PO DAILY #0 [id number] 12/01/16 Nystatin [Mycostatin Topical Powder 15 gm] 1 applic TP BID #0 bottle 12/01/16 History of Present Illness Admission Date/PCP: 11/27/16 11:26 SHA BRAVO MD History of Present Illness: NGHIA DAVID is a 65 year old female, She has history of morbid obesity, the body mass index 43.2, seizure disorder, type 2 diabetes mellitus she was brought to the office today by her for evaluation of this patient, suspect that she may have UTI, she has bedsores. She is essentially nonambulatory and self neglect as well , said she would not get out of bed,. She does not take any shower, in the office she was evaluated she has stage II sacral pressure ulcer she has offensive body odor especially in the perineum ,smell like yeast infection, she was admitted directly from the office to the hospital. The hemogram showed WBC of 24,000 the potential source of the infection is the urine the urine appearance looks cloudy there was also hyponatremia,CXR she was clear suggesting no pneumonia ABG was normal. Hospital Course Hospital Course: Patient was admitted because of concern for sepsis related conditions, she was evaluated in the hospital she had leukocytosis, the potential source was the urine because the urine dipstick test was abnormal. She was empirically treated with IV antibiotic. Urine culture was negative for any pathogen She also complains of pain in the right shoulder x-ray was done, the x-ray showed osteoarthritis of the right shoulder, the right shoulder was injected with 80 mg of Depo-Medrol +5 cc of lidocaine without complications. The plan is to transfer patient to senior care home. Physical Exam Vital Signs: Temp Pulse Resp BP Pulse Ox 98.2 F 71 21 H 137/55 H 95 12/01/16 15:10 12/01/16 15:10 12/01/16 15:10 12/01/16 15:10 12/01/16 15:10 Intake & Output 11/30/16 12/01/16 12/02/16 06:59 06:59 06:59 Intake Total 3157 3696 1995 Output Total 2075 1450 1200 Balance 1082 2246 795 Weight 120.4 kg 122.1 kg General appearance: PRESENT: no acute distress, obese Head exam: PRESENT: atraumatic, normocephalic Eye exam: PRESENT: conjunctiva pink, EOMI, PERRLA Neck exam: ABSENT: carotid bruit, JVD, lymphadenopathy, thyromegaly Respiratory exam: PRESENT: clear to auscultation luna Cardiovascular exam: PRESENT: RRR, +S1, +S2 Pulses: PRESENT: normal dorsalis pedis pul Vascular exam: PRESENT: normal capillary refill GI/Abdominal exam: PRESENT: normal bowel sounds, soft Rectal exam: PRESENT: deferred Extremities exam: PRESENT: full ROM. ABSENT: calf tenderness, clubbing, pedal edema Neurological exam: PRESENT: alert, awake, oriented to person, oriented to place , oriented to time, oriented to situation, CN II-XII grossly intact Psychiatric exam: PRESENT: appropriate affect, normal mood. ABSENT: homicidal ideation, suicidal ideation Skin exam: PRESENT: dry, intact, warm. ABSENT: cyanosis, rash Results Laboratory Results: 11/30/16 13:03 11/30/16 13:03 11/27/16 11/27/16 11/28/16 16:15 16:15 00:28 Creatine Kinase 290 H 742 H CK-MB (CK-2) 3.28 Troponin I < 0.012 11/28/16 11/28/16 11/28/16 00:28 08:26 08:26 Creatine Kinase 779 H CK-MB (CK-2) 4.55 3.04 Troponin I < 0.012 0.016 Impressions: Chest X-Ray 11/27/16 11:52 IMPRESSION: NO ACUTE RADIOGRAPHIC FINDING IN THE CHEST. Shoulder X-Ray 11/29/16 00:00 IMPRESSION: Glenohumeral joint arthropathy.
[2016-12-01] MEDS: TRAZODONE HCL 50 MG TABLET PO SCH (21:56)
[2016-12-02] MEDS: DIVALPROEX SODIUM 250 MG TAB.SR.24H PO SCH ×2 (05:43→13:05)
[2016-12-02] MEDS: LANSOPRAZOLE 30 MG TAB.RAP.DR PO SCH (05:44)
[2016-12-02] MEDS: LEVOFLOXACIN 750 MG/D5W RTU 750 MG/150 ML RTUPB IV SCH (10:46)
[2016-12-02] MEDS: ASPIRIN 81 MG TABLET, ENT COATED PO SCH (10:46)
[2016-12-02] MEDS: LEVOTHYROXINE SODIUM 0.1 MG TABLET PO SCH (10:47)
[2016-12-02] MEDS: LEVOTHYROXINE SODIUM 0.025 MG TABLET PO SCH (10:47)
[2016-12-02] MEDS: NYSTATIN TOPICAL POWDER 15 GM TP SCH (10:48)
[2016-12-02] MEDS: NORMAL SALINE 1000 ML 1,000 ML IV PRN (10:49)
[2016-12-02 12:15] VITALS: BP 157/50
[2016-12-03] MEDS ORDERED: LEVOFLOXACIN 750 MG TABLET PO SCH (10:00)
[2016-12-03] MEDS ORDERED: ENOXAPARIN SODIUM INJ 40 MG/0.4 ML DISP.SYRIN SUBCUT SCH (10:00)
== END 2016-12-02 15:12 | DRG 690 ==
LOC: 3W 11:26
PROVIDERS: ADMIT Internal Medicine; ATTEND Internal Medicine
PROC: 3E0U3BZ Introduction of Anesthetic Agent into Joints, Percutaneous Approach (ICD-10-PCS; principal; 2016-12-01)
PROC: 3E0U33Z Introduction of Anti-inflammatory into Joints, Percutaneous Approach (ICD-10-PCS; 2016-12-01)
DX: N30.00 Acute cystitis without hematuria (principal); E87.1 Hypo-osmolality and hyponatremia; Z68.42 Body mass index [BMI] 45.0-49.9, adult; D72.823 Leukemoid reaction; E03.9 Hypothyroidism, unspecified; M19.011 Primary osteoarthritis, right shoulder; E66.01 Morbid (severe) obesity due to excess calories; G40.909 Epilepsy, unspecified, not intractable, without status epilepticus; E11.42 Type 2 diabetes mellitus with diabetic polyneuropathy; L89.152 Pressure ulcer of sacral region, stage 2; I10 Essential (primary) hypertension; F32.9 Major depressive disorder, single episode, unspecified; G47.33 Obstructive sleep apnea (adult) (pediatric); K21.0 Gastro-esophageal reflux disease with esophagitis; Z79.899 Other long term (current) drug therapy; Z90.49 Acquired absence of other specified parts of digestive tract; Z87.891 Personal history of nicotine dependence; Z79.82 Long term (current) use of aspirin; Z91.041 Radiographic dye allergy status; Z88.1 Allergy status to other antibiotic agents
CPT/HCPCS: 36415; 36600; 71010; 80048; 80053; 80076; 81001; 82550; 82553; 82565; 82803; 82962; 83036; 84439; 84443; 84484; 85025; 85027; 85610; 85730; 87040; 87086; 93005; 93010; J1040; J1650; J1815; J1956; J3490; J7030

== ENCOUNTER 2016-12-23 12:59 | Inpatient (IN) | payer MEDICARE, OTHER ==
--- NOTE | 2016-12-23 13:10 | ER Document Report ---
ED General - General Mode of Arrival: Medic Information source: Patient, Outside Facility Records TRAVEL OUTSIDE OF THE [place] IN LAST 30 DAYS: No - HPI Associated symptoms: Other - see above <JAUN REES - Last Filed: 12/23/16 13:15> <PEDRO SERRANO - Last Filed: 12/23/16 15:31> - General Stated Complaint: ALTERED MENTAL STATUS Time Seen by Provider: 12/23/16 13:06 Notes: Patient is a 66 year old female who presents to the ED with complaints of a productive cough. Patient denies SOB even though she appears dyspneic. Patient reports a decrease in appetite. Patient is reported to have a 100.6 temp. (JAUN REES) - Related Data Allergies/Adverse Reactions: erythromycin base [Erythromycin Base] Allergy (Verified 05/02/15 00:44) Iodinated Contrast- Oral and IV Dye [IV Dye, Iodine Containing] Allergy ( Verified 05/02/15 00:44) Past Medical History - General Information source: Patient - Social History Smoking Status: Unknown if Ever Smoked Family History: Reviewed & Not Pertinent - Past Medical History Cardiac Medical History: Reports: Hx Hypertension Neurological Medical History: Reports: Hx Seizures - BED PADDED ON BOTH SIDES Endocrine Medical History: Reports: Hx Diabetes Mellitus Type 2, Hx Hypothyroidism Musculoskeltal Medical History: Reports Hx Arthritis Psychiatric Medical History: Reports: Hx Depression Past Surgical History: Reports: Hx Cholecystectomy, Hx Orthopedic Surgery - Toe surgery, Hx Tonsillectomy. Denies: Hx Hysterectomy - Immunizations Hx Diphtheria, Pertussis, Tetanus Vaccination: Yes Hx Pneumococcal Vaccination: 05/03/14 <JAUN REES - Last Filed: 12/23/16 13:15> Review of Systems - Review of Systems Constitutional: See HPI, Fever EENT: No symptoms reported Cardiovascular: No symptoms reported Respiratory: See HPI, Cough. denies: Short of breath Gastrointestinal: See HPI. denies: Poor appetite Genitourinary: No symptoms reported Female Genitourinary: No symptoms reported Musculoskeletal: No symptoms reported Skin: No symptoms reported Hematologic/Lymphatic: No symptoms reported Neurological/Psychological: No symptoms reported <JAUN REES - Last Filed: 12/23/16 13:15> Physical Exam - General General appearance: Alert - HEENT Head: Normocephalic, Atraumatic Eyes: Normal Extraocular movements intact: Yes Pupils: PERRL - Respiratory Breath sounds: Rhonchi - diffuse, bilatearlly, Wheezing - diffuse, bilaterally - Cardiovascular Rhythm: Regular, Tachycardia Heart sounds: Normal auscultation Murmur: No - Abdominal Inspection: Morbidly Obese Bowel sounds: Normal Tenderness: Nontender - Back Back: Normal - Extremities General upper extremity: Normal inspection, Normal ROM General lower extremity: Normal inspection, Edema, Normal ROM - Neurological Neuro grossly intact: Yes - Psychological Associated symptoms: Normal affect, Normal mood - Skin Skin Temperature: Hot Skin Moisture: Dry Skin Color: Normal <JAUN REES - Last Filed: 12/23/16 13:15> - Respiratory Respiratory status: No respiratory distress <PEDRO SERRANO - Last Filed: 12/23/16 15:31> - Vital signs Vitals: Temp Resp Pulse Ox 100.3 F 17 95 12/23/16 13:18 12/23/16 13:18 12/23/16 13:18 - Rectal Notes: There is old scarring from sacral decubitus ulcers, but there is intact skin with no ulcerations noted today. (PEDRO SERRANO) Course <JANU REES - Last Filed: 12/23/16 13:15> - Laboratory Result Diagrams: 12/23/16 13:28 12/23/16 13:28 - Diagnostic Test Radiology reviewed: Image reviewed, Reports reviewed - Minimal left retrocardiac atelectasis seen on portable chest x-ray - EKG Interpretation by Me EKG shows normal: Sinus rhythm, [place], Intervals. abnormal: QRS Complexes, ST-T Waves - Borderline ST depression in the lateral leads Rate: Normal - 93 [place]/QRS: RBBB Heart block present: 1st Degree When compared to previous EKG there are: No significant change - Consults Dr. Crandall Time consulted: 15:05 Consulted provider: will see as inpatient - [facility] admit <PEDRO SERRANO - Last Filed: 12/23/16 15:31> - Re-evaluation Re-evalutation: 12/23/16 15:09 The patient's hypotension has responded to a 2 L IV fluid bolus. 12/23/16 15:10 I suspect this will route returner to be pneumonia which will be more evident when the patient becomes hydrated. (PEDRO SERRANO) - Vital Signs Vital signs: Temp Pulse Resp BP Pulse Ox 100.3 F 14 96/50 L 99 12/23/16 14:44 12/23/16 14:46 12/23/16 14:46 12/23/16 14:45 - Laboratory Laboratory results interpreted by me: 12/23/16 12/23/16 12/23/16 13:28 13:28 13:28 WBC 15.9 H MCV 98 H MCH 34.2 H Band Neutrophils % 15 H Abs Neuts (Manual) 11.1 H Sodium 122.9 L Chloride 89 L Glucose 124 H Lactic Acid 2.4 H Direct Bilirubin 0.8 H Albumin 2.9 L Urine Blood Ur Leukocyte Esterase 12/23/16 14:03 WBC MCV MCH Band Neutrophils % Abs Neuts (Manual) Sodium Chloride Glucose Lactic Acid Direct Bilirubin Albumin Urine Blood SMALL H Ur Leukocyte Esterase MODERATE H Critical Care Note - Critical Care Note Total time excluding time spent on procedures (mins): 35 <PEDRO SERRANO - Last Filed: 12/23/16 15:31> Discharge <JAUN REES - Last Filed: 12/23/16 13:15> - Discharge Admitting Provider: [facility] Unit Admitted: [facility] <PEDRO SERRANO - Last Filed: 12/23/16 15:31> - Discharge Clinical Impression: Bronchitis, Confusion, Hypotension, Hyponatremia Sepsis Qualifiers: Sepsis type: sepsis due to unspecified organism Qualified Code(s): A41.9 - Sepsis, unspecified organism Fever Qualifiers: Fever type: unspecified Qualified Code(s): R50.9 - Fever, unspecified Leukocytosis Qualifiers: Leukocytosis type: bandemia Qualified Code(s): D72.825 - Bandemia Condition: Serious Disposition: ADMITTED INPATIENT Scribe Attestation: 12/23/16 15:31 I personally performed the services described in the documentation, reviewed and edited the documentation which was dictated to the scribe in my presence, and it accurately records my words and actions. (PEDRO SERRANO) Scribe Documentation - Scribe Written by Scribe:: mary alice Magallon, 12/23/2016, 1321 acting as scribe for :: Miguelangel <JAUN REES - Last Filed: 12/23/16 13:15>
[2016-12-23] MEDS ORDERED: IPRATROPIUM/ALBUTEROL 0.5-2.5 MG/3 ML AMPUL NEB ONE (13:17)
[2016-12-23] MEDS ORDERED: ACETAMINOPHEN 325 MG TABLET PO ONE (13:18)
[2016-12-23] MEDS ORDERED: NORMAL SALINE 1000 ML 1,000 ML IV ONE ×3 (13:19→17:20)
[2016-12-23 13:43] LABS: HEMATOCRIT 37.5 % (36.0-47.0); HEMOGLOBIN 13.1 g/dL (12.0-15.5); HGB HCT DIFFERENCE 1.8; MEAN CORPUSCULAR HEMOGLOBIN 34.2 pg (27.0-33.4); MEAN CORPUSCULAR VOLUME 98 fl (80-97); RED BLOOD COUNT 3.84 10^6/uL (3.72-5.28); WHITE BLOOD COUNT 15.9 10^3/uL (4.0-10.5)
[2016-12-23 13:50] LABS: PROTHROMBIN TIME 13.6 SEC (11.4-15.4)
[2016-12-23 14:08] LABS: VENOUS BLOOD BASE EXCESS 3.8 mmol/L; VENOUS BLOOD HCO3 28.9 mmol/L (20-32); VENOUS BLOOD PCO2 45.2 mmHg (35-63); VENOUS BLOOD PH 7.42 (7.30-7.42)
[2016-12-23 14:10] LABS: BASOPHILS % (MANUAL) 0 % (0-2); EOSINOPHILS % (MANUAL) 0 % (0-6); LYMPHOCYTES % (MANUAL) 22 % (13-45); TOTAL CELLS COUNTED 100; TOXIC VACUOLATION PRESENT
[2016-12-23 14:11] LABS: ANISOCYTOSIS SLIGHT
[2016-12-23 14:13] LABS: BURR CELLS SLIGHT; PLATELET CLUMPS PRESENT; POIKILOCYTOSIS SLIGHT; POLYCHROMASIA SLIGHT
[2016-12-23 14:15] LABS: BAND NEUTROPHILS % (MANUAL) 15 % (3-5)
[2016-12-23 14:17] LABS: CREATINE KINASE MB 0.66 ng/mL (<4.55)
[2016-12-23 14:18] LABS: TROPONIN I < 0.012 ng/mL
[2016-12-23] MEDS ORDERED: CEFTRIAXONE 1 GM/D5W RTU 1 GM/50 ML RTUPB IV ONE (14:18)
--- NOTE | 2016-12-23 14:18 | RADIOLOGY REPORT (SQ) ---
EXAM DESCRIPTION: CHEST SINGLE VIEW COMPLETED DATE/TIME: 12/23/2016 2:01 pm REASON FOR STUDY: bed 15 sepsis protocol COMPARISON: Chest films 09/22/2014, 06/28/2015, 01/07/2016, 11/27/2016 EXAM PARAMETERS: NUMBER OF VIEWS: One view. TECHNIQUE: Single frontal radiographic view of the chest acquired. RADIATION DOSE: NA LIMITATIONS: Portable technique, low lung volumes FINDINGS: LUNGS AND PLEURA: Minimal left retrocardiac atelectasis. Right lung clear. No pleural effusions or pneumothorax. MEDIASTINUM AND HILAR STRUCTURES: No masses. Contour normal. HEART AND VASCULAR STRUCTURES: Heart normal in size. Normal vasculature. BONES: No acute findings. HARDWARE: None in the chest. OTHER: No other significant finding. IMPRESSION: Minimal left retrocardiac atelectasis TECHNICAL DOCUMENTATION: JOB ID: [id number]
[2016-12-23 14:21] LABS: ALANINE AMINOTRANSFERASE 16 U/L (9-52); ALBUMIN 2.9 g/dL (3.5-5.0); ALKALINE PHOSPHATASE 60 U/L (38-126); ANION GAP 8 (5-19); ASPARTATE AMINO TRANSFERASE 36 U/L (14-36); BILIRUBIN,DIRECT 0.8 mg/dL (0.0-0.4); BILIRUBIN,TOTAL 1.1 mg/dL (0.2-1.3); BLOOD UREA NITROGEN 18 mg/dL (7-20); CALCIUM 10.1 mg/dL (8.4-10.2); CARBON DIOXIDE 26 mmol/L (22-30); CHLORIDE 89 mmol/L (98-107); CREATINE KINASE 85 U/L (30-135); GLUCOSE 124 mg/dL (75-110); POTASSIUM 4.7 mmol/L (3.6-5.0); SODIUM 122.9 mmol/L (137-145); TOTAL PROTEIN 6.5 g/dL (6.3-8.2)
[2016-12-23 14:40] LABS: APPEARANCE,URINE SLIGHTLY-CLOUDY; BILIRUBIN,URINE NEGATIVE (NEGATIVE); GLUCOSE, URINE NEGATIVE (NEGATIVE); KETONES,URINE NEGATIVE (NEGATIVE); LEUKOCYTE ESTERASE,URINE MODERATE (NEGATIVE); NITRITE,URINE NEGATIVE (NEGATIVE); PROTEIN,URINE NEGATIVE (NEGATIVE); URINE SPECIFIC GRAVITY 1.016; UROBILINOGEN,URINE NEGATIVE mg/dL (<2.0)
[2016-12-23] MEDS ORDERED: LEVOFLOXACIN 750 MG/D5W RTU 750 MG/150 ML RTUPB IV ONE (14:59)
[2016-12-23 15:38] LABS: ADD ON TESTING BLD IN LAB ACKNOWLEDGE
[2016-12-23] MEDS ORDERED: DEXTROSE 40% GEL 15 GM TUBE PO PRN ×2 (17:35)
[2016-12-23] MEDS ORDERED: GLUCAGON,HUMAN RECOMB 1 MG INJ IM PRN (17:35)
[2016-12-23] MEDS ORDERED: INSULIN LISPRO 100 UNIT/ML 3 ML VIAL SUBCUT PRN (17:35)
[2016-12-23] MEDS ORDERED: DEXTROSE 50%-WATER 25 GM/50 ML DISP.SYRIN IV PRN ×2 (17:35)
[2016-12-23] MEDS: NORMAL SALINE 1000 ML 1,000 ML IV PRN (18:41)
[2016-12-23 19:29] LABS: MAGNESIUM 1.7 mg/dL (1.6-2.3); PHOSPHORUS 3.8 mg/dL (2.5-4.5)
[2016-12-23 19:30] LABS: AMYLASE < 30 U/L (30-110); LIPASE < 10.0 U/L (23-300)
[2016-12-23 19:39] LABS: TROPONIN I 0.013 ng/mL
[2016-12-23 19:57] LABS: THYROID STIMULATING HORMONE 4.14 uIU/mL (0.47-4.68)
[2016-12-23] MEDS ORDERED: ENOXAPARIN SODIUM INJ 40 MG/0.4 ML DISP.SYRIN SUBCUT ONE (20:30)
[2016-12-23 20:45] LABS: PROTHROMBIN TIME 14.8 SEC (11.4-15.4)
[2016-12-23 20:46] LABS: PARTIAL THROMBOPLASTIN TIME 36.9 SEC (23.5-35.8)
[2016-12-23] MEDS: CEFEPIME 2 GM/D5W RTU 2 GM/50 ML RTUPB IV SCH (21:22)
--- NOTE | 2016-12-23 21:50 | EKG REPORT ---
SEVERITY:- ABNORMAL ECG - SINUS RHYTHM FIRST DEGREE AV BLOCK RIGHT BUNDLE BRANCH BLOCK BORDERLINE ST DEPRESSION, LATERAL LEADS : Confirmed by: Ariana Lagos 23-Dec-2016 21:49:22
--- NOTE | 2016-12-23 22:14 | PDOC H&P ---
History of Present Illness Admission Date/PCP: 12/23/16 17:21 SHA BRAVO MD History of Present Illness: NGHIA DAVID is a 66 year old female, She came to the emergency room for evaluation of cough, wheezing, in the emergency room she was evaluated chest x -ray was done, the chest x-ray was abnormal but did not show any specific infiltrates or consolidation to suggest pneumonia. She has grossly abnormal urinalysis with pyuria, bacteriuria and positive leukocyte esterase. Patient obviously have respiratory symptoms with shortness of breath and tachypnea and flaring of the Nares. She probably aspirated, she is presently in the care home undergoing rehabilitation. Past Medical History Cardiac Medical History: Reports: Hypertension Neurological Medical History: Reports: Seizures - BED PADDED ON BOTH SIDES Endocrine Medical History: Reports: Diabetes Mellitus Type 2, Hypothyroidism Musculoskeltal Medical History: Reports: Arthritis Psychiatric Medical History: Reports: Depression Past Surgical History Past Surgical History: Reports: Cholecystectomy, Orthopedic Surgery - Toe surgery, Tonsillectomy Denies: Hysterectomy Social History Smoking Status: Former Smoker Cigarettes Packs Per Day: 1 Number of Years Smokin Frequency of Alcohol Use: None Hx Recreational Drug Use: No Drugs: None Hx Prescription Drug Abuse: No - Advance Directive Resuscitation Status: Full Code Family History Family History: Reviewed & Not Pertinent Parental Family History Reviewed: Yes Children Family History Reviewed: Yes Sibling(s) Family History Reviewed.: Yes Medication/Allergy Home Medications: Aspirin [Ecotrin 81 mg EC Tablet] 81 mg PO DAILY 12/23/16 Divalproex Sodium [Divalproex Sodium ER] 250 mg PO Q6 12/23/16 Levothyroxine Sodium [Synthroid] 125 mcg PO DAILY 12/23/16 Metformin HCl [Glucophage XR 500 mg Tablet] 500 mg PO DAILY 12/23/16 Nystatin [Mycostatin Topical Powder 15 gm] 15 applic TP BID 12/23/16 Omeprazole 40 mg PO DAILY 12/23/16 Trazodone HCl [Desyrel] 100 mg PO QHS 12/23/16 Allergies/Adverse Reactions: erythromycin base [Erythromycin Base] Allergy (Verified 05/02/15 00:44) Iodinated Contrast- Oral and IV Dye [IV Dye, Iodine Containing] Allergy ( Verified 05/02/15 00:44) Review of Systems Constitutional: PRESENT: chills, fever(s) Eyes: ABSENT: visual disturbances Ears: ABSENT: hearing changes Cardiovascular: ABSENT: chest pain, dyspnea on exertion, edema, orthropnea, palpitations Respiratory: PRESENT: cough, dyspnea, sputum Gastrointestinal: ABSENT: abdominal pain, constipation, diarrhea, hematemesis, hematochezia, nausea, vomiting Genitourinary: ABSENT: dysuria, hematuria Musculoskeletal: ABSENT: joint swelling Integumentary: ABSENT: rash, wounds Neurological: ABSENT: abnormal gait, abnormal speech, confusion, dizziness, focal weakness, syncope Psychiatric: ABSENT: anxiety, depression, homidical ideation, suicidal ideation Endocrine: ABSENT: cold intolerance, heat intolerance, menstrual abnormalities, polydipsia, polyuria Hematologic/Lymphatic: ABSENT: easy bleeding, easy bruising, lymphadenopathy Physical Exam Vital Signs: Temp Pulse Resp BP Pulse Ox 97.8 F 72 16 107/67 100 12/23/16 19:43 12/23/16 19:43 12/23/16 19:43 12/23/16 19:43 12/23/16 19:43 Intake & Output 12/22/16 12/23/16 12/24/16 06:59 06:59 06:59 Weight 119.2 kg General appearance: PRESENT: mild distress Head exam: PRESENT: atraumatic, normocephalic Eye exam: PRESENT: conjunctiva pink, EOMI, PERRLA Ear exam: PRESENT: normal external ear exam Mouth exam: PRESENT: moist, tongue midline Neck exam: PRESENT: full ROM Respiratory exam: PRESENT: crackles, wheezes Cardiovascular exam: PRESENT: RRR, +S1, +S2 Pulses: PRESENT: normal dorsalis pedis pul, +2 pedal pulses bilateral Vascular exam: PRESENT: normal capillary refill GI/Abdominal exam: PRESENT: normal bowel sounds, soft Rectal exam: PRESENT: deferred Neurological exam: PRESENT: alert, awake, oriented to person, oriented to place , oriented to time, oriented to situation, CN II-XII grossly intact Psychiatric exam: PRESENT: appropriate affect, normal mood Skin exam: PRESENT: dry, intact, warm Results Laboratory Results: 12/23/16 12/23/16 18:40 20:30 Lactic Acid 3.3 H Ammonia < 8.7 L 12/23/16 12/23/16 18:40 18:40 Creatine Kinase 84 CK-MB (CK-2) 2.00 Troponin I 0.013 Impressions: Chest X-Ray 12/23/16 13:01 IMPRESSION: Minimal left retrocardiac atelectasis Assessment & Plan - Diagnosis (1) Pneumonia Qualifiers: Pneumonia type: due to unspecified organism Laterality: unspecified laterality Lung location: unspecified part of lung Qualified Code(s): J18.9 - Pneumonia, unspecified organism Is this a current diagnosis for this admission?: Yes Plan: She has pneumonia, she will be started empirically on intravenous Levaquin and cefepime, a CAT scan of the lung will be ordered (2) Sepsis Qualifiers: Sepsis type: sepsis due to unspecified organism Qualified Code(s): A41.9 - Sepsis, unspecified organism Is this a current diagnosis for this admission?: Yes Plan: She has sepsis syndrome with associated hypotension, she is fluid challenge, the blood pressure is responsive to fluid therapy initially systolic blood pressure was in the low 70s with boluses of normal saline the blood pressure is now 124 systolic. (3) Hypotension Qualifiers: Hypotension type: unspecified hypotension type Qualified Code(s): I95.9 - Hypotension, unspecified Is this a current diagnosis for this admission?: Yes (4) UTI (urinary tract infection) Qualifiers: Urinary tract infection type: site unspecified Hematuria presence: with hematuria Qualified Code(s): N39.0 - Urinary tract infection, site not specified Is this a current diagnosis for this admission?: Yes (5) Hyponatremia Is this a current diagnosis for this admission?: Yes
[2016-12-24 01:04] LABS: CREATINE KINASE MB 1.47 ng/mL (<4.55)
[2016-12-24 01:05] LABS: TROPONIN I < 0.012 ng/mL
[2016-12-24] MEDS: NORMAL SALINE 1000 ML 1,000 ML IV PRN (05:00)
[2016-12-24 07:06] LABS: ABSOLUTE BASOPHILS # (AUTO) 0.1 10^3/uL (0.0-0.2); ABSOLUTE LYMPHOCYTES (AUTO) 2.4 10^3/uL (0.5-4.7); ABSOLUTE MONOCYTES (AUTO) 0.8 10^3/uL (0.1-1.4); ABSOLUTE NEUT (AUTO) 8.7 10^3/uL (1.7-8.2); BASOPHILS % (AUTO) 0.5 % (0-2); EOSINOPHILS % (AUTO) 0.4 % (0-6); HEMATOCRIT 29.1 % (36.0-47.0); HGB HCT DIFFERENCE 1.8; MEAN CORPUSCULAR HEMOGLOBIN 34.3 pg (27.0-33.4); MEAN CORPUSCULAR HGB CONC 35.2 g/dL (32.0-36.0); MEAN CORPUSCULAR VOLUME 97 fl (80-97); MONOCYTES % (AUTO) 6.9 % (3-13); RED BLOOD COUNT 2.99 10^6/uL (3.72-5.28); RED CELL DISTRIBUTION WIDTH 13.9 % (11.5-14.0); SEGMENTED NEUTROPHILS % (AUTO) 72.2 % (42-78)
[2016-12-24 07:12] LABS: HEMOGLOBIN 10.3 g/dL (12.0-15.5)
[2016-12-24 07:21] LABS: ALANINE AMINOTRANSFERASE 20 U/L (9-52); ALBUMIN 2.1 g/dL (3.5-5.0); ALKALINE PHOSPHATASE 46 U/L (38-126); ASPARTATE AMINO TRANSFERASE 20 U/L (14-36); BILIRUBIN,DIRECT 0.5 mg/dL (0.0-0.4); BILIRUBIN,TOTAL 0.5 mg/dL (0.2-1.3); BLOOD UREA NITROGEN 13 mg/dL (7-20); CALCIUM 8.9 mg/dL (8.4-10.2); CARBON DIOXIDE 26 mmol/L (22-30); CHLORIDE 97 mmol/L (98-107); CREATINE KINASE 38 U/L (30-135); Direct HDL 35 mg/dL (>40); GLUCOSE 71 mg/dL (75-110); POTASSIUM 4.3 mmol/L (3.6-5.0); SODIUM 126.4 mmol/L (137-145); TOTAL PROTEIN 4.9 g/dL (6.3-8.2); TRIGLYCERIDES 73 mg/dL (<150)
[2016-12-24 07:32] LABS: DIRECT LDL 40 mg/dL (<100)
[2016-12-24 07:35] LABS: CREATINE KINASE MB 1.36 ng/mL (<4.55)
[2016-12-24 07:39] LABS: TROPONIN I < 0.012 ng/mL
[2016-12-24 07:55] LABS: ANION GAP 3 (5-19)
[2016-12-24] MEDS: ENOXAPARIN SODIUM INJ 40 MG/0.4 ML DISP.SYRIN SUBCUT SCH (09:31)
[2016-12-24] MEDS: CEFEPIME 2 GM/D5W RTU 2 GM/50 ML RTUPB IV SCH ×2 (09:34→22:04)
--- NOTE | 2016-12-24 11:28 | RADIOLOGY REPORT (SQ) ---
EXAM DESCRIPTION: CT CHEST WITHOUT COMPLETED DATE/TIME: 12/24/2016 10:34 am REASON FOR STUDY: PNEUMONIA COMPARISON: Chest films 12/23/2016, 11/27/2016, 06/28/2015, 09/22/2014 TECHNIQUE: CT scan performed of the chest without intravenous contrast. Images reviewed with lung, soft tissue and bone windows. Reconstructed coronal and sagittal MPR images reviewed. All images st ored on PACS. All CT scanners at this facility use dose modulation, iterative reconstruction, and/or weight based d osing when appropriate to reduce radiation dose to as low as reasonably achievable (ALARA). [facility]: Dose Right [facility]: CareDose [facility]: Dose Right [facility]: Teradose 4D [facility]: Smart Intercom RADIATION DOSE: Up-to-date CT equipment and radiation dose reduction techniques were employed. CTDIv ol: 17.9 mGy. DLP: 644 mGy-cm. mGy. LIMITATIONS: No technical limitations. FINDINGS: LUNGS AND PLEURA: There is a trace right pleural effusion in the posterior right hemithora x, with surrounding pleural thickening. Adjacent bandlike consolidation is present, likely atelectas is or scarring. On the left side, there is patchy airspace disease throughout the left lower lobe worrisome for pneum onia. No pleural fluid. No pneumothorax. No worrisome pulmonary nodules. Airway patent, with debris in the segmental airway s of the left lower lobe. HILAR AND MEDIASTINAL STRUCTURES: No identified masses or abnormal nodes. No obvious aneurysm. HEART AND VASCULAR STRUCTURES: Mild cardiomegaly. UPPER ABDOMEN: Tiny hiatal hernia. Clips right upper quadrant post cholecystectomy.Tiny left upper p ole intrarenal calcification could be either a vascular calcification or a tiny upper pole nonobstruc tive stone THYROID AND OTHER SOFT TISSUES: Thyroid not in the field of view. No axillary adenopathy. BONES: Diffuse thoracic spine ankylosis HARDWARE: None in the chest. OTHER: No other significant findings. IMPRESSION: Left lower lobe consolidation worrisome for acute pneumonia. Small posterior right pleural effusion with pleural thickening and adjacent airspace disease suggesti ve of atelectasis or scarring. TECHNICAL DOCUMENTATION: JOB ID: [id number] Quality ID # [id number]: Final reports with documentation of one or more dose reduction techniques (e.g., Au tomated exposure control, adjustment of the mA and/or kV according to patient size, use of iterative reconstruction technique) 2010 [employer]- All Rights Reserved
[2016-12-24] MEDS: LEVOFLOXACIN 750 MG/D5W RTU 750 MG/150 ML RTUPB IV SCH (17:39)
--- NOTE | 2016-12-24 18:55 | PDOC PROGRESS REPORT ---
Subjective Progress Note for:: 12/24/16 Subjective:: Patient was admitted for the management of left lower lobe pneumonia associated with sepsis syndrome, she is presently on intravenous antibiotic, cefepime and Levaquin empirically. Patient seems to be responding to treatment, CT chest that was done confirmed left lower lobe pneumonia. Physical Exam Vital Signs: Temp Pulse Resp BP Pulse Ox 97.5 F 74 20 125/31 L 99 12/24/16 15:28 12/24/16 15:28 12/24/16 15:28 12/24/16 15:28 12/24/16 15:28 Intake & Output 12/23/16 12/24/16 12/25/16 06:59 06:59 06:59 Intake Total 454 Output Total 1000 Balance -546 Weight 119.2 kg General appearance: PRESENT: mild distress Head exam: PRESENT: atraumatic, normocephalic Eye exam: PRESENT: PERRLA Mouth exam: PRESENT: moist, tongue midline Respiratory exam: PRESENT: rales, rhonchi Cardiovascular exam: PRESENT: RRR, +S1, +S2 Pulses: PRESENT: normal dorsalis pedis pul, +2 pedal pulses bilateral Vascular exam: PRESENT: normal capillary refill GI/Abdominal exam: PRESENT: normal bowel sounds, soft Rectal exam: PRESENT: deferred Neurological exam: PRESENT: alert, awake, oriented to person, oriented to place , oriented to time, oriented to situation, CN II-XII grossly intact Psychiatric exam: PRESENT: appropriate affect, normal mood Skin exam: PRESENT: dry, intact, warm Results Laboratory Results: 12/24/16 06:25 12/24/16 06:25 12/23/16 12/23/16 12/24/16 18:40 20:30 06:25 WBC RBC Hgb Hct MCV MCH MCHC RDW Plt Count Seg Neutrophils % Lymphocytes % Monocytes % Eosinophils % Basophils % Absolute Neutrophils Absolute Lymphocytes Absolute Monocytes Absolute Eosinophils Absolute Basophils Sodium 126.4 L Potassium 4.3 Chloride 97 L Carbon Dioxide 26 Anion Gap 3 L BUN 13 Creatinine 0.50 L Est GFR ( Amer) > 60 Est GFR (Non-Af Amer) > 60 Glucose 71 L Lactic Acid 3.3 H Calcium 8.9 Total Bilirubin 0.5 AST 20 ALT 20 Alkaline Phosphatase 46 Ammonia < 8.7 L Total Protein 4.9 L Albumin 2.1 L Triglycerides 73 Cholesterol 101.70 LDL Cholesterol Direct 40 VLDL Cholesterol 15.0 HDL Cholesterol 35 L 12/24/16 06:25 WBC 12.0 H RBC 2.99 L Hgb 10.3 L D Hct 29.1 L MCV 97 MCH 34.3 H MCHC 35.2 RDW 13.9 Plt Count 307 Seg Neutrophils % 72.2 Lymphocytes % 20.0 Monocytes % 6.9 Eosinophils % 0.4 Basophils % 0.5 Absolute Neutrophils 8.7 H Absolute Lymphocytes 2.4 Absolute Monocytes 0.8 Absolute Eosinophils 0.0 Absolute Basophils 0.1 Sodium Potassium Chloride Carbon Dioxide Anion Gap BUN Creatinine Est GFR ( Amer) Est GFR (Non-Af Amer) Glucose Lactic Acid Calcium Total Bilirubin AST ALT Alkaline Phosphatase Ammonia Total Protein Albumin Triglycerides Cholesterol LDL Cholesterol Direct VLDL Cholesterol HDL Cholesterol 12/23/16 12/23/16 12/24/16 18:40 18:40 00:25 Creatine Kinase 84 51 CK-MB (CK-2) 2.00 Troponin I 0.013 12/24/16 12/24/16 12/24/16 00:25 06:25 06:25 Creatine Kinase 38 CK-MB (CK-2) 1.47 1.36 Troponin I < 0.012 < 0.012 Impressions: Chest CT 12/23/16 00:00 IMPRESSION: Left lower lobe consolidation worrisome for acute pneumonia. Small posterior right pleural effusion with pleural thickening and adjacent airspace disease suggestive of atelectasis or scarring. Chest X-Ray 12/23/16 13:01 IMPRESSION: Minimal left retrocardiac atelectasis Assessment & Plan - Diagnosis (1) Pneumonia Qualifiers: Pneumonia type: due to unspecified organism Laterality: left Lung location: lower lobe of lung Qualified Code(s): J18.1 - Lobar pneumonia, unspecified organism Is this a current diagnosis for this admission?: Yes (2) Sepsis Qualifiers: Sepsis type: sepsis due to unspecified organism Qualified Code(s): A41.9 - Sepsis, unspecified organism Is this a current diagnosis for this admission?: Yes (3) Hypotension Qualifiers: Hypotension type: unspecified hypotension type Qualified Code(s): I95.9 - Hypotension, unspecified Is this a current diagnosis for this admission?: Yes (4) UTI (urinary tract infection) Qualifiers: Urinary tract infection type: site unspecified Hematuria presence: with hematuria Qualified Code(s): N39.0 - Urinary tract infection, site not specified Is this a current diagnosis for this admission?: Yes (5) Hyponatremia Is this a current diagnosis for this admission?: Yes - Plan Summary Plan Summary: The blood pressure is improved, she will continue intravenous antibiotic, hydration, bronchodilators with DuoNeb nebulizer as needed
[2016-12-24] MEDS ORDERED: (PENDING PHARMACY ID) (Levothyroxine Sodium [Synthroid] 125 MCG) PO SCH (19:00)
[2016-12-24] MEDS ORDERED: (PENDING PHARMACY ID) (Metformin Hcl [Glucophage Xr 500 Mg Tablet] 500 MG) PO SCH (19:00)
[2016-12-24] MEDS ORDERED: ASPIRIN 81 MG TABLET, ENT COATED PO ONE (20:00)
[2016-12-24] MEDS ORDERED: NYSTATIN TOPICAL POWDER 15 GM TP ONE (20:00)
[2016-12-24] MEDS ORDERED: (PENDING PHARMACY ID) (Trazodone Hcl [Desyrel] 100 MG) PO SCH (22:00)
[2016-12-24] MEDS: TRAZODONE HCL 50 MG TABLET PO SCH (22:03)
[2016-12-25] MEDS ORDERED: DIVALPROEX SODIUM 250 MG TAB.SR.24H PO SCH
[2016-12-25] MEDS: DIVALPROEX SODIUM 250 MG TABLET.DR PO SCH ×5 (00:26→23:43)
[2016-12-25 05:37] LABS: ABSOLUTE BASOPHILS # (AUTO) 0.1 10^3/uL (0.0-0.2); ABSOLUTE EOSINOPHILS # (AUTO) 0.1 10^3/uL (0.0-0.6); ABSOLUTE LYMPHOCYTES (AUTO) 2.7 10^3/uL (0.5-4.7); ABSOLUTE MONOCYTES (AUTO) 0.8 10^3/uL (0.1-1.4); ABSOLUTE NEUT (AUTO) 6.4 10^3/uL (1.7-8.2); EOSINOPHILS % (AUTO) 0.9 % (0-6); LYMPHOCYTES % (AUTO) 27.2 % (13-45); MEAN CORPUSCULAR HEMOGLOBIN 34.3 pg (27.0-33.4); MEAN CORPUSCULAR HGB CONC 35.4 g/dL (32.0-36.0); MEAN CORPUSCULAR VOLUME 97 fl (80-97); MONOCYTES % (AUTO) 7.8 % (3-13); RED CELL DISTRIBUTION WIDTH 13.7 % (11.5-14.0); SEGMENTED NEUTROPHILS % (AUTO) 63.1 % (42-78); WHITE BLOOD COUNT 10.1 10^3/uL (4.0-10.5)
[2016-12-25 06:11] LABS: ALANINE AMINOTRANSFERASE 18 U/L (9-52); ALBUMIN 2.3 g/dL (3.5-5.0); ALKALINE PHOSPHATASE 55 U/L (38-126); ASPARTATE AMINO TRANSFERASE 19 U/L (14-36); BILIRUBIN,DIRECT 0.5 mg/dL (0.0-0.4); BILIRUBIN,TOTAL 0.5 mg/dL (0.2-1.3); BLOOD UREA NITROGEN 10 mg/dL (7-20); CALCIUM 9.6 mg/dL (8.4-10.2); CHLORIDE 97 mmol/L (98-107); CREATININE RESULT 0.49 mg/dL (0.52-1.25); GLUCOSE 74 mg/dL (75-110); POTASSIUM 4.5 mmol/L (3.6-5.0); TOTAL PROTEIN 5.2 g/dL (6.3-8.2)
[2016-12-25 06:24] LABS: CARBON DIOXIDE 29 mmol/L (22-30); SODIUM 129.5 mmol/L (137-145)
[2016-12-25 06:26] LABS: ANION GAP 4 (5-19)
[2016-12-25] MEDS: METFORMIN HCL 500 MG TABLET PO SCH ×2 (08:08→15:25)
[2016-12-25] MEDS: LEVOTHYROXINE SODIUM 0.1 MG TABLET PO SCH (09:50)
[2016-12-25] MEDS: LEVOTHYROXINE SODIUM 0.025 MG TABLET PO SCH (09:50)
[2016-12-25] MEDS: ASPIRIN 81 MG TABLET, ENT COATED PO SCH (09:51)
[2016-12-25] MEDS: LANSOPRAZOLE 30 MG TAB.RAP.DR PO SCH (09:51)
[2016-12-25] MEDS: CEFEPIME 2 GM/D5W RTU 2 GM/50 ML RTUPB IV SCH ×2 (09:52→22:22)
[2016-12-25] MEDS: NYSTATIN TOPICAL POWDER 15 GM TP SCH ×2 (09:52→18:25)
[2016-12-25] MEDS: ENOXAPARIN SODIUM INJ 40 MG/0.4 ML DISP.SYRIN SUBCUT SCH (09:59)
[2016-12-25 11:14] LABS: PATH REVIEW PATHOLOGIST REVIEWED
[2016-12-25] MEDS: LEVOFLOXACIN 750 MG/D5W RTU 750 MG/150 ML RTUPB IV SCH (18:25)
--- NOTE | 2016-12-25 21:07 | PDOC PROGRESS REPORT ---
Subjective Progress Note for:: 12/25/16 Subjective:: Patient was admitted for the management of pneumonia, she developed increased respiratory distress today, the intravenous fluid was discontinued. She feels much better since the IV fluids discontinued, she will continue the IV antibiotic. Physical Exam Vital Signs: Temp Pulse Resp BP Pulse Ox 98.7 F 70 20 128/36 H 100 12/25/16 15:15 12/25/16 19:00 12/25/16 15:15 12/25/16 15:15 12/25/16 15:15 Intake & Output 12/24/16 12/25/16 12/26/16 06:59 06:59 06:59 Intake Total 454 300 792 Output Total 1000 1050 500 Balance -546 -750 292 Weight 119.2 kg 117.3 kg General appearance: PRESENT: morbidly obese Eye exam: PRESENT: PERRLA Respiratory exam: PRESENT: crackles Cardiovascular exam: PRESENT: +S1, +S2 GI/Abdominal exam: PRESENT: soft Neurological exam: PRESENT: alert, CN II-XII grossly intact Results Laboratory Results: 12/25/16 04:43 12/25/16 04:43 12/25/16 12/25/16 04:43 04:43 WBC 10.1 RBC 3.20 L Hgb 11.0 L Hct 31.0 L MCV 97 MCH 34.3 H MCHC 35.4 RDW 13.7 Plt Count 345 Seg Neutrophils % 63.1 Lymphocytes % 27.2 Monocytes % 7.8 Eosinophils % 0.9 Basophils % 1.0 Absolute Neutrophils 6.4 Absolute Lymphocytes 2.7 Absolute Monocytes 0.8 Absolute Eosinophils 0.1 Absolute Basophils 0.1 Sodium 129.5 L Potassium 4.5 Chloride 97 L Carbon Dioxide 29 Anion Gap 4 L BUN 10 Creatinine 0.49 L Est GFR ( Amer) > 60 Est GFR (Non-Af Amer) > 60 Glucose 74 L Calcium 9.6 Total Bilirubin 0.5 AST 19 ALT 18 Alkaline Phosphatase 55 Total Protein 5.2 L Albumin 2.3 L 12/23/16 12/23/16 12/24/16 18:40 18:40 00:25 Creatine Kinase 84 51 CK-MB (CK-2) 2.00 Troponin I 0.013 12/24/16 12/24/16 12/24/16 00:25 06:25 06:25 Creatine Kinase 38 CK-MB (CK-2) 1.47 1.36 Troponin I < 0.012 < 0.012 Impressions: Chest CT 12/23/16 00:00 IMPRESSION: Left lower lobe consolidation worrisome for acute pneumonia. Small posterior right pleural effusion with pleural thickening and adjacent airspace disease suggestive of atelectasis or scarring. Chest X-Ray 12/23/16 13:01 IMPRESSION: Minimal left retrocardiac atelectasis Assessment & Plan - Diagnosis (1) Pneumonia Qualifiers: Pneumonia type: due to unspecified organism Laterality: left Lung location: lower lobe of lung Qualified Code(s): J18.1 - Lobar pneumonia, unspecified organism Is this a current diagnosis for this admission?: Yes (2) Sepsis Qualifiers: Sepsis type: sepsis due to unspecified organism Qualified Code(s): A41.9 - Sepsis, unspecified organism Is this a current diagnosis for this admission?: Yes (3) Hypotension Qualifiers: Hypotension type: unspecified hypotension type Qualified Code(s): I95.9 - Hypotension, unspecified Is this a current diagnosis for this admission?: Yes (4) UTI (urinary tract infection) Qualifiers: Urinary tract infection type: site unspecified Hematuria presence: with hematuria Qualified Code(s): N39.0 - Urinary tract infection, site not specified Is this a current diagnosis for this admission?: Yes (5) Hyponatremia Is this a current diagnosis for this admission?: Yes - Plan Summary Plan Summary: The blood pressure is improved with hydration, she will continue IV antibiotic.
[2016-12-25] MEDS: TRAZODONE HCL 50 MG TABLET PO SCH (22:22)
[2016-12-26] MEDS: DIVALPROEX SODIUM 250 MG TABLET.DR PO SCH ×4 (05:18→23:39)
[2016-12-26 05:21] LABS: HEMATOCRIT 32.7 % (36.0-47.0); HEMOGLOBIN 11.4 g/dL (12.0-15.5); HGB HCT DIFFERENCE 1.5; MEAN CORPUSCULAR HEMOGLOBIN 33.8 pg (27.0-33.4); MEAN CORPUSCULAR HGB CONC 34.7 g/dL (32.0-36.0); MEAN CORPUSCULAR VOLUME 98 fl (80-97); RED BLOOD COUNT 3.35 10^6/uL (3.72-5.28); RED CELL DISTRIBUTION WIDTH 13.8 % (11.5-14.0)
[2016-12-26 05:23] LABS: ALANINE AMINOTRANSFERASE 19 U/L (9-52); ALBUMIN 2.4 g/dL (3.5-5.0); ALKALINE PHOSPHATASE 59 U/L (38-126); ANION GAP 5 (5-19); ASPARTATE AMINO TRANSFERASE 18 U/L (14-36); BILIRUBIN,DIRECT 0.5 mg/dL (0.0-0.4); BILIRUBIN,TOTAL 0.5 mg/dL (0.2-1.3); BLOOD UREA NITROGEN 8 mg/dL (7-20); CALCIUM 9.5 mg/dL (8.4-10.2); CARBON DIOXIDE 31 mmol/L (22-30); CHLORIDE 95 mmol/L (98-107); CREATININE RESULT 0.48 mg/dL (0.52-1.25); GLUCOSE 75 mg/dL (75-110); POTASSIUM 4.6 mmol/L (3.6-5.0); SODIUM 130.7 mmol/L (137-145); TOTAL PROTEIN 5.5 g/dL (6.3-8.2)
[2016-12-26 05:42] LABS: BAND NEUTROPHILS % (MANUAL) 3 % (3-5); BASOPHILS % (MANUAL) 0 % (0-2); EOSINOPHILS % (MANUAL) 0 % (0-6); LYMPHOCYTES % (MANUAL) 38 % (13-45); TOTAL CELLS COUNTED 100
[2016-12-26 05:43] LABS: RBC MORPHOLOGY COMMENT NORMO-CYTIC/CHROMIC; TOXIC GRANULATION SLIGHT; TOXIC VACUOLATION PRESENT
[2016-12-26] MEDS: METFORMIN HCL 500 MG TABLET PO SCH ×2 (07:25→17:10)
[2016-12-26] MEDS: ASPIRIN 81 MG TABLET, ENT COATED PO SCH (09:50)
[2016-12-26] MEDS: LEVOTHYROXINE SODIUM 0.025 MG TABLET PO SCH (09:51)
[2016-12-26] MEDS: LANSOPRAZOLE 30 MG TAB.RAP.DR PO SCH (09:51)
[2016-12-26] MEDS: CEFEPIME 2 GM/D5W RTU 2 GM/50 ML RTUPB IV SCH ×2 (09:51→22:52)
[2016-12-26] MEDS: LEVOTHYROXINE SODIUM 0.1 MG TABLET PO SCH (09:51)
[2016-12-26] MEDS: ENOXAPARIN SODIUM INJ 40 MG/0.4 ML DISP.SYRIN SUBCUT SCH (09:52)
[2016-12-26] MEDS: NYSTATIN TOPICAL POWDER 15 GM TP SCH ×2 (10:05→17:13)
--- NOTE | 2016-12-26 14:06 | PDOC PROGRESS REPORT ---
Subjective Progress Note for:: 12/26/16 Subjective:: Patient reported improvement in her breathing. Coughing do persist with clear phlegm production. She denied chest pain. No nausea, vomiting or abdominal pain. Appetite and p.o intake remain poor. Bowel movement challenging but probably due to poor p.o intake in the last couple of days. Patient express dislike of the hospital food. No fever or chill. Physical Exam Vital Signs: Temp Pulse Resp BP Pulse Ox 98.7 F 74 22 H 122/54 L 98 12/26/16 11:45 12/26/16 11:45 12/26/16 11:45 12/26/16 11:45 12/26/16 11:45 Intake & Output 12/25/16 12/26/16 12/27/16 06:59 06:59 06:59 Intake Total 300 1157 222 Output Total 1050 2000 400 Balance -750 -843 -178 Weight 117.3 kg 115.1 kg General appearance: PRESENT: no acute distress, cooperative, morbidly obese Head exam: PRESENT: atraumatic, normocephalic Eye exam: PRESENT: conjunctiva pink, EOMI, PERRLA. ABSENT: scleral icterus Mouth exam: PRESENT: moist Respiratory exam: PRESENT: clear to auscultation luna, crackles - scattered, decreased breath sounds - at lung bases Cardiovascular exam: PRESENT: RRR. ABSENT: diastolic murmur, rubs, systolic murmur Vascular exam: ABSENT: pallor GI/Abdominal exam: PRESENT: normal bowel sounds, soft. ABSENT: distended, guarding, mass, organolmegaly, rebound, tenderness Extremities exam: PRESENT: pedal edema - relatred to chronic lymphedema Neurological exam: PRESENT: alert, awake, oriented to person, oriented to place , oriented to time, oriented to situation, CN II-XII grossly intact. ABSENT: motor sensory deficit Psychiatric exam: PRESENT: appropriate affect, normal mood. ABSENT: homicidal ideation, suicidal ideation Skin exam: PRESENT: dry, intact, warm. ABSENT: cyanosis, rash Results Laboratory Results: 12/26/16 04:01 12/26/16 04:01 12/26/16 12/26/16 04:01 04:01 WBC 9.0 RBC 3.35 L Hgb 11.4 L Hct 32.7 L MCV 98 H MCH 33.8 H MCHC 34.7 RDW 13.8 Plt Count 366 Seg Neutrophils % Not Reportable Lymphocytes % Not Reportable Monocytes % Not Reportable Eosinophils % Not Reportable Basophils % Not Reportable Absolute Neutrophils Not Reportable Absolute Lymphocytes Not Reportable Absolute Monocytes Not Reportable Absolute Eosinophils Not Reportable Absolute Basophils Not Reportable Sodium 130.7 L Potassium 4.6 Chloride 95 L Carbon Dioxide 31 H Anion Gap 5 BUN 8 Creatinine 0.48 L Est GFR ( Amer) > 60 Est GFR (Non-Af Amer) > 60 Glucose 75 Calcium 9.5 Total Bilirubin 0.5 AST 18 ALT 19 Alkaline Phosphatase 59 Total Protein 5.5 L Albumin 2.4 L 12/23/16 12/23/16 12/24/16 18:40 18:40 00:25 Creatine Kinase 84 51 CK-MB (CK-2) 2.00 Troponin I 0.013 12/24/16 12/24/16 12/24/16 00:25 06:25 06:25 Creatine Kinase 38 CK-MB (CK-2) 1.47 1.36 Troponin I < 0.012 < 0.012 Impressions: Chest CT 12/23/16 00:00 IMPRESSION: Left lower lobe consolidation worrisome for acute pneumonia. Small posterior right pleural effusion with pleural thickening and adjacent airspace disease suggestive of atelectasis or scarring. Chest X-Ray 12/23/16 13:01 IMPRESSION: Minimal left retrocardiac atelectasis Assessment & Plan - Diagnosis (1) Pneumonia Qualifiers: Pneumonia type: due to unspecified organism Laterality: left Lung location: lower lobe of lung Qualified Code(s): J18.1 - Lobar pneumonia, unspecified organism Is this a current diagnosis for this admission?: Yes Plan: See covering attending physician orders. (2) Hyponatremia Is this a current diagnosis for this admission?: Yes Plan: See covering attending physician orders. (3) Hypothyroidism Qualifiers: Hypothyroidism type: unspecified Qualified Code(s): E03.9 - Hypothyroidism , unspecified Is this a current diagnosis for this admission?: Yes Plan: See covering attending physician orders. (4) Morbid obesity with BMI of 40.0-44.9, adult Is this a current diagnosis for this admission?: Yes Plan: See covering attending physician orders. - Time Time Spent with patient: 25-34 minutes Medications reviewed and adjusted accordingly: Yes Anticipated discharge: Home with Homehealth - Inpatient Certification Based on my medical assessment, after consideration of the patient's comorbidities, presenting symptoms, or acuity I expect that the services needed warrant INPATIENT care.: Yes I certify that my determination is in accordance with my understanding of Medicare's requirements for reasonable and necessary INPATIENT services [42 CFR 412.3e].: Yes Medical Necessity: Need Close Monitoring Due to Risk of Patient Decompensation, Need For Continuous Telemetry Monitoring, Need for IV Antibiotics, Risk of Complication if Not Cared For in Hospital Post 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
[2016-12-26] MEDS: IPRATROPIUM/ALBUTEROL 0.5-2.5 MG/3 ML AMPUL NEB PRN (14:22)
[2016-12-26] MEDS: LEVOFLOXACIN 750 MG/D5W RTU 750 MG/150 ML RTUPB IV SCH (17:11)
[2016-12-26] MEDS: TRAZODONE HCL 50 MG TABLET PO SCH (22:52)
[2016-12-27] MEDS: DIVALPROEX SODIUM 250 MG TABLET.DR PO SCH ×4 (05:45→23:07)
[2016-12-27] MEDS: IPRATROPIUM/ALBUTEROL 0.5-2.5 MG/3 ML AMPUL NEB PRN (07:57)
[2016-12-27] MEDS: METFORMIN HCL 500 MG TABLET PO SCH ×2 (08:48→17:23)
[2016-12-27] MEDS: ASPIRIN 81 MG TABLET, ENT COATED PO SCH (10:34)
[2016-12-27] MEDS: LEVOTHYROXINE SODIUM 0.1 MG TABLET PO SCH (10:35)
[2016-12-27] MEDS: LEVOTHYROXINE SODIUM 0.025 MG TABLET PO SCH (10:36)
[2016-12-27] MEDS: ENOXAPARIN SODIUM INJ 40 MG/0.4 ML DISP.SYRIN SUBCUT SCH (10:37)
[2016-12-27] MEDS: LANSOPRAZOLE 30 MG TAB.RAP.DR PO SCH (10:37)
[2016-12-27] MEDS: CEFEPIME 2 GM/D5W RTU 2 GM/50 ML RTUPB IV SCH ×2 (10:39→21:19)
[2016-12-27] MEDS: NYSTATIN TOPICAL POWDER 15 GM TP SCH ×2 (10:40→17:20)
--- NOTE | 2016-12-27 11:56 | PDOC PROGRESS REPORT ---
Subjective Progress Note for:: 12/27/16 Subjective:: Patient reported improvement in her breathing but coughing with sputum production do persist. She denied chest pain. No nausea, vomiting or abdominal pain. Her appetite and p.o intake improving. No fever or chill. Physical Exam Vital Signs: Temp Pulse Resp BP Pulse Ox 98.3 F 68 16 131/64 H 93 12/27/16 07:35 12/27/16 07:57 12/27/16 07:57 12/27/16 07:35 12/27/16 07:57 Intake & Output 12/26/16 12/27/16 12/28/16 06:59 06:59 06:59 Intake Total 1157 921 Output Total 2000 1500 Balance -843 -579 Weight 115.1 kg 111.7 kg Physical Exam: General appearance: PRESENT: no acute distress, cooperative, morbidly obese Head exam: PRESENT: atraumatic, normocephalic Eye exam: PRESENT: conjunctiva pink, EOMI, PERRLA. ABSENT: scleral icterus Mouth exam: PRESENT: moist Respiratory exam: PRESENT: clear to auscultation luna, crackles - scattered, decreased breath sounds - at lung bases Cardiovascular exam: PRESENT: RRR. ABSENT: diastolic murmur, rubs, systolic murmur Vascular exam: ABSENT: pallor GI/Abdominal exam: PRESENT: normal bowel sounds, soft. ABSENT: distended, guarding, mass, organomegaly, rebound, tenderness Extremities exam: PRESENT: pedal edema - relatred to chronic lymphedema Neurological exam: PRESENT: alert, awake, oriented to person, oriented to place , oriented to time, oriented to situation, CN II-XII grossly intact. ABSENT: motor sensory deficit Psychiatric exam: PRESENT: appropriate affect, normal mood. ABSENT: homicidal ideation, suicidal ideation Skin exam: PRESENT: dry, intact, warm. ABSENT: cyanosis, rash Results Laboratory Results: 12/26/16 04:01 12/26/16 04:01 12/23/16 12/23/16 12/24/16 18:40 18:40 00:25 Creatine Kinase 84 51 CK-MB (CK-2) 2.00 Troponin I 0.013 12/24/16 12/24/16 12/24/16 00:25 06:25 06:25 Creatine Kinase 38 CK-MB (CK-2) 1.47 1.36 Troponin I < 0.012 < 0.012 Impressions: Chest CT 12/23/16 00:00 IMPRESSION: Left lower lobe consolidation worrisome for acute pneumonia. Small posterior right pleural effusion with pleural thickening and adjacent airspace disease suggestive of atelectasis or scarring. Chest X-Ray 12/23/16 13:01 IMPRESSION: Minimal left retrocardiac atelectasis Assessment & Plan - Diagnosis (1) Pneumonia Qualifiers: Pneumonia type: due to unspecified organism Laterality: left Lung location: lower lobe of lung Qualified Code(s): J18.1 - Lobar pneumonia, unspecified organism Is this a current diagnosis for this admission?: Yes (2) Hyponatremia Is this a current diagnosis for this admission?: Yes (3) Hypothyroidism Qualifiers: Hypothyroidism type: unspecified Qualified Code(s): E03.9 - Hypothyroidism , unspecified Is this a current diagnosis for this admission?: Yes (4) Morbid obesity with BMI of 40.0-44.9, adult Is this a current diagnosis for this admission?: Yes - Time Time Spent with patient: 25-34 minutes Medications reviewed and adjusted accordingly: Yes Anticipated discharge: Home with Homehealth Within: Other - Inpatient Certification Based on my medical assessment, after consideration of the patient's comorbidities, presenting symptoms, or acuity I expect that the services needed warrant INPATIENT care.: Yes I certify that my determination is in accordance with my understanding of Medicare's requirements for reasonable and necessary INPATIENT services [42 CFR 412.3e].: Yes Medical Necessity: Need Close Monitoring Due to Risk of Patient Decompensation, Need For IV Fluids, Need For Continuous Telemetry Monitoring, Need for IV Antibiotics, Risk of Complication if Not Cared For in Hospital 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 Encouraged use of Flutter device to aide expectoration.
[2016-12-27] MEDS: LEVOFLOXACIN 750 MG/D5W RTU 750 MG/150 ML RTUPB IV SCH (17:23)
[2016-12-27] MEDS: TRAZODONE HCL 50 MG TABLET PO SCH (21:18)
[2016-12-28] MEDS: DIVALPROEX SODIUM 250 MG TABLET.DR PO SCH ×4 (05:11→23:43)
[2016-12-28 08:40] LABS: ALANINE AMINOTRANSFERASE 12 U/L (9-52); ALBUMIN 2.7 g/dL (3.5-5.0); ALKALINE PHOSPHATASE 45 U/L (38-126); ANION GAP 5 (5-19); ASPARTATE AMINO TRANSFERASE 21 U/L (14-36); BILIRUBIN,DIRECT 0.5 mg/dL (0.0-0.4); BILIRUBIN,TOTAL 0.6 mg/dL (0.2-1.3); BLOOD UREA NITROGEN 9 mg/dL (7-20); CALCIUM 9.4 mg/dL (8.4-10.2); CARBON DIOXIDE 33 mmol/L (22-30); CHLORIDE 90 mmol/L (98-107); CREATININE RESULT 0.43 mg/dL (0.52-1.25); GLUCOSE 86 mg/dL (75-110); POTASSIUM 4.8 mmol/L (3.6-5.0); SODIUM 127.7 mmol/L (137-145); TOTAL PROTEIN 6.1 g/dL (6.3-8.2)
[2016-12-28 09:38] LABS: ABSOLUTE BASOPHILS # (AUTO) 0.1 10^3/uL (0.0-0.2); ABSOLUTE EOSINOPHILS # (AUTO) 0.2 10^3/uL (0.0-0.6); ABSOLUTE LYMPHOCYTES (AUTO) 3.5 10^3/uL (0.5-4.7); ABSOLUTE MONOCYTES (AUTO) 0.7 10^3/uL (0.1-1.4); ABSOLUTE NEUT (AUTO) 3.9 10^3/uL (1.7-8.2); BASOPHILS % (AUTO) 0.6 % (0-2); EOSINOPHILS % (AUTO) 2.9 % (0-6); HEMATOCRIT 34.9 % (36.0-47.0); HEMOGLOBIN 12.2 g/dL (12.0-15.5); HGB HCT DIFFERENCE 1.7; LYMPHOCYTES % (AUTO) 41.4 % (13-45); MEAN CORPUSCULAR HEMOGLOBIN 33.5 pg (27.0-33.4); MEAN CORPUSCULAR HGB CONC 34.9 g/dL (32.0-36.0); MEAN CORPUSCULAR VOLUME 96 fl (80-97); MONOCYTES % (AUTO) 8.5 % (3-13); RED BLOOD COUNT 3.63 10^6/uL (3.72-5.28); RED CELL DISTRIBUTION WIDTH 13.5 % (11.5-14.0); SEGMENTED NEUTROPHILS % (AUTO) 46.6 % (42-78); WHITE BLOOD COUNT 8.4 10^3/uL (4.0-10.5)
[2016-12-28] MEDS: METFORMIN HCL 500 MG TABLET PO SCH ×2 (12:00→18:24)
[2016-12-28] MEDS: ENOXAPARIN SODIUM INJ 40 MG/0.4 ML DISP.SYRIN SUBCUT SCH (12:11)
[2016-12-28] MEDS: ASPIRIN 81 MG TABLET, ENT COATED PO SCH (12:12)
[2016-12-28] MEDS: LEVOTHYROXINE SODIUM 0.025 MG TABLET PO SCH (12:12)
[2016-12-28] MEDS: LANSOPRAZOLE 30 MG TAB.RAP.DR PO SCH (12:12)
[2016-12-28] MEDS: NYSTATIN TOPICAL POWDER 15 GM TP SCH ×2 (12:13→18:25)
[2016-12-28] MEDS: LEVOTHYROXINE SODIUM 0.1 MG TABLET PO SCH (12:13)
[2016-12-28] MEDS: CEFEPIME 2 GM/D5W RTU 2 GM/50 ML RTUPB IV SCH ×2 (12:13→22:19)
[2016-12-28] MEDS: IPRATROPIUM/ALBUTEROL 0.5-2.5 MG/3 ML AMPUL NEB PRN ×2 (16:26→23:52)
[2016-12-28] MEDS: LEVOFLOXACIN 750 MG TABLET PO SCH (18:25)
--- NOTE | 2016-12-28 18:33 | PDOC PROGRESS REPORT ---
Subjective Progress Note for:: 12/28/16 Subjective:: Patient was seen by the bedside, she was admitted for the management of left pneumonia, she has severe tremors, essential type she says she feels cold but the core temperature is 97. Physical Exam Vital Signs: Temp Pulse Resp BP Pulse Ox 97.4 F 80 20 109/78 95 12/28/16 17:00 12/28/16 16:26 12/28/16 16:26 12/28/16 16:16 12/28/16 16:26 Intake & Output 12/27/16 12/28/16 12/29/16 06:59 06:59 06:59 Intake Total 921 449 222 Output Total 1500 500 600 Balance -579 -51 -378 Weight 111.7 kg 119.8 kg 119.8 kg General appearance: PRESENT: no acute distress Eye exam: PRESENT: PERRLA Respiratory exam: PRESENT: clear to auscultation luna Cardiovascular exam: PRESENT: +S1, +S2 GI/Abdominal exam: PRESENT: soft Neurological exam: PRESENT: alert, CN II-XII grossly intact Results Laboratory Results: 12/28/16 09:17 12/28/16 08:17 12/28/16 12/28/16 12/28/16 08:17 08:17 09:17 WBC Cancelled 8.4 RBC Cancelled 3.63 L Hgb Cancelled 12.2 Hct Cancelled 34.9 L MCV Cancelled 96 MCH Cancelled 33.5 H MCHC Cancelled 34.9 RDW Cancelled 13.5 Plt Count Cancelled 291 Seg Neutrophils % Cancelled 46.6 Lymphocytes % Cancelled 41.4 Monocytes % Cancelled 8.5 Eosinophils % Cancelled 2.9 Basophils % Cancelled 0.6 Absolute Neutrophils Cancelled 3.9 Absolute Lymphocytes Cancelled 3.5 Absolute Monocytes Cancelled 0.7 Absolute Eosinophils Cancelled 0.2 Absolute Basophils Cancelled 0.1 Sodium 127.7 L Potassium 4.8 Chloride 90 L Carbon Dioxide 33 H Anion Gap 5 BUN 9 Creatinine 0.43 L Est GFR ( Amer) > 60 Est GFR (Non-Af Amer) > 60 Glucose 86 Calcium 9.4 Total Bilirubin 0.6 AST 21 ALT 12 Alkaline Phosphatase 45 Total Protein 6.1 L Albumin 2.7 L 12/23/16 12/23/16 12/24/16 18:40 18:40 00:25 Creatine Kinase 84 51 CK-MB (CK-2) 2.00 Troponin I 0.013 12/24/16 12/24/16 12/24/16 00:25 06:25 06:25 Creatine Kinase 38 CK-MB (CK-2) 1.47 1.36 Troponin I < 0.012 < 0.012 Impressions: Chest CT 12/23/16 00:00 IMPRESSION: Left lower lobe consolidation worrisome for acute pneumonia. Small posterior right pleural effusion with pleural thickening and adjacent airspace disease suggestive of atelectasis or scarring. Chest X-Ray 12/23/16 13:01 IMPRESSION: Minimal left retrocardiac atelectasis Assessment & Plan - Diagnosis (1) Pneumonia Qualifiers: Pneumonia type: due to unspecified organism Laterality: left Lung location: lower lobe of lung Qualified Code(s): J18.1 - Lobar pneumonia, unspecified organism Is this a current diagnosis for this admission?: Yes (2) Sepsis Qualifiers: Sepsis type: sepsis due to unspecified organism Qualified Code(s): A41.9 - Sepsis, unspecified organism Is this a current diagnosis for this admission?: Yes (3) Hypotension Qualifiers: Hypotension type: unspecified hypotension type Qualified Code(s): I95.9 - Hypotension, unspecified Is this a current diagnosis for this admission?: Yes (4) UTI (urinary tract infection) Qualifiers: Urinary tract infection type: site unspecified Hematuria presence: with hematuria Qualified Code(s): N39.0 - Urinary tract infection, site not specified Is this a current diagnosis for this admission?: Yes (5) Hyponatremia Is this a current diagnosis for this admission?: Yes - Plan Summary Plan Summary: She has persistent hyponatremia, the serum and urine osmolality is ordered, she will continue IV antibiotic, hopefully discharge in 1-2 day
[2016-12-28 19:35] LABS: URINE POTASSIUM 8.3 mmol/L (22-164)
[2016-12-28] MEDS: TRAZODONE HCL 50 MG TABLET PO SCH (22:19)
[2016-12-29] MEDS: DIVALPROEX SODIUM 250 MG TABLET.DR PO SCH ×3 (05:26→18:05)
[2016-12-29] MEDS: METFORMIN HCL 500 MG TABLET PO SCH ×2 (08:41→16:47)
[2016-12-29] MEDS: ENOXAPARIN SODIUM INJ 40 MG/0.4 ML DISP.SYRIN SUBCUT SCH (11:08)
[2016-12-29] MEDS: LEVOTHYROXINE SODIUM 0.1 MG TABLET PO SCH (11:09)
[2016-12-29] MEDS: CEFEPIME 2 GM/D5W RTU 2 GM/50 ML RTUPB IV SCH (11:09)
[2016-12-29] MEDS: LANSOPRAZOLE 30 MG TAB.RAP.DR PO SCH (11:10)
[2016-12-29] MEDS: ASPIRIN 81 MG TABLET, ENT COATED PO SCH (11:10)
[2016-12-29] MEDS: LEVOTHYROXINE SODIUM 0.025 MG TABLET PO SCH (11:10)
[2016-12-29] MEDS: NYSTATIN TOPICAL POWDER 15 GM TP SCH ×2 (11:11→18:06)
[2016-12-29 14:24] LABS: HEMATOCRIT 32.9 % (36.0-47.0); HEMOGLOBIN 11.6 g/dL (12.0-15.5); HGB HCT DIFFERENCE 1.9; MEAN CORPUSCULAR HEMOGLOBIN 33.9 pg (27.0-33.4); MEAN CORPUSCULAR HGB CONC 35.4 g/dL (32.0-36.0); MEAN CORPUSCULAR VOLUME 96 fl (80-97); RED BLOOD COUNT 3.43 10^6/uL (3.72-5.28); RED CELL DISTRIBUTION WIDTH 13.6 % (11.5-14.0); WHITE BLOOD COUNT 9.2 10^3/uL (4.0-10.5)
[2016-12-29 14:47] LABS: ALANINE AMINOTRANSFERASE 20 U/L (9-52); ALBUMIN 2.6 g/dL (3.5-5.0); ALKALINE PHOSPHATASE 49 U/L (38-126); ANION GAP 5 (5-19); ASPARTATE AMINO TRANSFERASE 16 U/L (14-36); BILIRUBIN,DIRECT 0.6 mg/dL (0.0-0.4); BILIRUBIN,TOTAL 0.6 mg/dL (0.2-1.3); BLOOD UREA NITROGEN 8 mg/dL (7-20); CALCIUM 9.3 mg/dL (8.4-10.2); CARBON DIOXIDE 30 mmol/L (22-30); CHLORIDE 90 mmol/L (98-107); CREATININE RESULT 0.52 mg/dL (0.52-1.25); GLUCOSE 115 mg/dL (75-110); POTASSIUM 4.5 mmol/L (3.6-5.0); SODIUM 125.3 mmol/L (137-145); TOTAL PROTEIN 5.8 g/dL (6.3-8.2)
[2016-12-29 14:53] LABS: BASOPHILS % (MANUAL) 1 % (0-2); EOSINOPHILS % (MANUAL) 4 % (0-6); LYMPHOCYTES % (MANUAL) 29 % (13-45); TOTAL CELLS COUNTED 100
[2016-12-29 14:54] LABS: TOXIC GRANULATION SLIGHT; TOXIC VACUOLATION PRESENT
[2016-12-29 14:56] LABS: PLATELET CLUMPS PRESENT
[2016-12-29 14:59] LABS: STOMATOCYTES SLIGHT
[2016-12-29 16:08] VITALS: BP 124/41
[2016-12-29] MEDS: LEVOFLOXACIN 750 MG TABLET PO SCH (18:05)
--- NOTE | 2016-12-29 18:05 | PDOC TRANSFER SUMMARY ---
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) Is this a current diagnosis for this admission?: Yes - Additional Information Resuscitation Status: Full Code Home Medications: Aspirin [Ecotrin 81 mg EC Tablet] 81 mg PO DAILY 12/23/16 Divalproex Sodium [Divalproex Sodium ER] 250 mg PO Q6 12/23/16 Levothyroxine Sodium [Synthroid] 125 mcg PO DAILY 12/23/16 Metformin HCl [Glucophage XR 500 mg Tablet] 500 mg PO DAILY 12/23/16 Nystatin [Mycostatin Topical Powder 15 gm] 15 applic TP BID 12/23/16 Omeprazole 40 mg PO DAILY 12/23/16 Trazodone HCl [Desyrel] 100 mg PO QHS 12/23/16 Ipratropium/Albuterol Sulfate [Duoneb 3 ml Ampul] 3 ml NEB [id number] PRN #120 vial.neb 12/29/16 Levofloxacin [Levaquin 750 mg Tablet] 750 mg PO QPM #10 tablet 12/29/16 History of Present Illness Admission Date/PCP: 12/23/16 17:21 SHA BRAVO MD History of Present Illness: NGHIA DAVID is a 66 year old female, She came to the emergency room for evaluation of cough, wheezing, in the emergency room she was evaluated chest x -ray was done, the chest x-ray was abnormal but did not show any specific infiltrates or consolidation to suggest pneumonia. She has grossly abnormal urinalysis with pyuria, bacteriuria and positive leukocyte esterase. Patient obviously have respiratory symptoms with shortness of breath and tachypnea and flaring of the Nares. She probably aspirated, she is presently in the jail undergoing rehabilitation. Hospital Course Hospital Course: Patient was admitted for the management of left pneumonia, associated with hypotension, UTI, hyponatremia due to SIADH. She was empirically treated with IV antibiotic, cefepime and Levaquin. No specific organism was cultured from the sputum, the serum sodium was low, the serum osmolality was low the urine osmolality was high, she was euvolemic, this was consistent with SIADH. There was associated wheezing this was treated with bronchodilators, DuoNeb every 6 hours as needed. Patient will be transferred back to the jail to continue physical therapy and rehabilitation. Physical Exam Vital Signs: Temp Pulse Resp BP Pulse Ox 98.3 F 69 19 124/41 L 99 12/29/16 15:29 12/29/16 15:29 12/29/16 15:29 12/29/16 15:29 12/29/16 15:29 Intake & Output 12/28/16 12/29/16 12/30/16 06:59 06:59 06:59 Intake Total 449 721 355 Output Total 500 1900 300 Balance -51 -1179 55 Weight 119.8 kg 123.9 kg General appearance: PRESENT: no acute distress Head exam: PRESENT: atraumatic Eye exam: PRESENT: PERRLA Respiratory exam: PRESENT: clear to auscultation luna Cardiovascular exam: PRESENT: +S1, +S2 GI/Abdominal exam: PRESENT: soft Neurological exam: PRESENT: alert, CN II-XII grossly intact Results Laboratory Results: 12/29/16 14:17 12/29/16 14:17 12/28/16 12/28/16 12/29/16 18:45 19:25 14:17 WBC 9.2 RBC 3.43 L Hgb 11.6 L Hct 32.9 L MCV 96 MCH 33.9 H MCHC 35.4 RDW 13.6 Plt Count 289 Seg Neutrophils % Not Reportable Lymphocytes % Not Reportable Monocytes % Not Reportable Eosinophils % Not Reportable Basophils % Not Reportable Absolute Neutrophils Not Reportable Absolute Lymphocytes Not Reportable Absolute Monocytes Not Reportable Absolute Eosinophils Not Reportable Absolute Basophils Not Reportable Sodium Potassium Chloride Carbon Dioxide Anion Gap BUN Creatinine Est GFR ( Amer) Est GFR (Non-Af Amer) Glucose Serum Osmolality 266 L Calcium Total Bilirubin AST ALT Alkaline Phosphatase Total Protein Albumin Urine Osmolality 285 L 12/29/16 14:17 WBC RBC Hgb Hct MCV MCH MCHC RDW Plt Count Seg Neutrophils % Lymphocytes % Monocytes % Eosinophils % Basophils % Absolute Neutrophils Absolute Lymphocytes Absolute Monocytes Absolute Eosinophils Absolute Basophils Sodium 125.3 L Potassium 4.5 Chloride 90 L Carbon Dioxide 30 Anion Gap 5 BUN 8 Creatinine 0.52 Est GFR ( Amer) > 60 Est GFR (Non-Af Amer) > 60 Glucose 115 H Serum Osmolality Calcium 9.3 Total Bilirubin 0.6 AST 16 ALT 20 Alkaline Phosphatase 49 Total Protein 5.8 L Albumin 2.6 L Urine Osmolality 12/23/16 12/23/16 12/24/16 18:40 18:40 00:25 Creatine Kinase 84 51 CK-MB (CK-2) 2.00 Troponin I 0.013 12/24/16 12/24/16 12/24/16 00:25 06:25 06:25 Creatine Kinase 38 CK-MB (CK-2) 1.47 1.36 Troponin I < 0.012 < 0.012 Impressions: Chest CT 12/23/16 00:00 IMPRESSION: Left lower lobe consolidation worrisome for acute pneumonia. Small posterior right pleural effusion with pleural thickening and adjacent airspace disease suggestive of atelectasis or scarring. Chest X-Ray 12/23/16 13:01 IMPRESSION: Minimal left retrocardiac atelectasis
[2016-12-31 10:11] LABS: PATH REVIEW PATHOLOGIST REVIEWED
== END 2016-12-29 20:55 | DRG 871 ==
LOC: ER 12:59 → UNDOADMIN 15:24 → EH 15:24 → 3N 19:00
PROVIDERS: ADMIT Internal Medicine; ATTEND Internal Medicine
DX: A41.9 Sepsis, unspecified organism (principal); J18.1 Lobar pneumonia, unspecified organism; Z68.42 Body mass index [BMI] 45.0-49.9, adult; E22.2 Syndrome of inappropriate secretion of antidiuretic hormone; N39.0 Urinary tract infection, site not specified; R31.9 Hematuria, unspecified; I10 Essential (primary) hypertension; E11.9 Type 2 diabetes mellitus without complications; E03.9 Hypothyroidism, unspecified; G40.909 Epilepsy, unspecified, not intractable, without status epilepticus; F32.9 Major depressive disorder, single episode, unspecified; E66.01 Morbid (severe) obesity due to excess calories; Z87.891 Personal history of nicotine dependence; Z79.84 Long term (current) use of oral hypoglycemic drugs; Z79.82 Long term (current) use of aspirin; Z79.899 Other long term (current) drug therapy
CPT/HCPCS: 36415; 51701; 51702; 71010; 71250; 80048; 80053; 80061; 80076; 80164; 81001; 82140; 82150; 82550; 82553; 82803; 82962; 83036; 83605; 83690; 83735; 83930; 83935; 84100; 84133; 84300; 84439; 84443; 84484; 85025; 85610; 85730; 87040; 87086; 93005; 93010; 94640; 94667; 96365; 99291; J0692; J0696; J1650; J1956; J3490; J7030; J7620

== ENCOUNTER 2017-06-25 14:24 | Inpatient (IN) | payer MEDICARE, OTHER ==
[2017-06-25] MEDS ORDERED: NORMAL SALINE 1000 ML 1,000 ML IV ONE ×2 (14:30→23:05)
--- NOTE | 2017-06-25 14:32 | ER Document Report ---
ED Respiratory Problem - General Chief Complaint: Cough Stated Complaint: COUGH Time Seen by Provider: 06/25/17 14:29 Notes: The patient is a 66-year-old female, bedbound and chronic left arm and leg weakness, presents with 4 days of a productive cough. 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 When EMS arrived, her oxygen was in the upper 80s on 2 L oxygen. Patient denies shortness of breath, chest pain, increased leg swelling, back pain, rash or fevers. TRAVEL OUTSIDE OF THE [place] IN LAST 30 DAYS: No - Related Data Allergies/Adverse Reactions: erythromycin base [Erythromycin Base] Allergy (Verified 05/02/15 00:44) Iodinated Contrast- Oral and IV Dye [IV Dye, Iodine Containing] Allergy ( Verified 05/02/15 00:44) Past Medical History - General Information source: Patient - Social History Smoking Status: Unknown if Ever Smoked Family History: Reviewed & Not Pertinent - Past Medical History Cardiac Medical History: Reports: Hx Hypertension Denies: Hx Congestive Heart Failure, Hx Heart Attack Pulmonary Medical History: Denies: Hx Asthma, Hx Bronchitis, Hx COPD, Hx Pneumonia, Hx Tuberculosis Neurological Medical History: Reports: Hx Seizures - BED PADDED ON BOTH SIDES Endocrine Medical History: Reports: Hx Diabetes Mellitus Type 2, Hx Hypothyroidism Renal/ Medical History: Denies: Hx End Stage Renal Disease, Hx Kidney Stones GI Medical History: Denies: Hx Cirrhosis, Hx Gastroesophageal Reflux Disease, Hx Ulcer Musculoskeltal Medical History: Reports Hx Arthritis, Denies Hx Multiple Sclerosis Psychiatric Medical History: Reports: Hx Depression Denies: Hx Bipolar Disorder, Hx Schizophrenia Past Surgical History: Reports: Hx Cholecystectomy, Hx Orthopedic Surgery - Toe surgery, Hx Tonsillectomy. Denies: Hx Hysterectomy - Immunizations Hx Diphtheria, Pertussis, Tetanus Vaccination: Yes Hx Pneumococcal Vaccination: 05/03/14 Review of Systems - Review of Systems Notes: REVIEW OF SYSTEMS: CONSTITUTIONAL: -fevers, -chills EENT: -eye pain, -difficulty swallowing, -nasal congestion CARDIOVASCULAR: -chest pain, -syncope. RESPIRATORY: +cough, -SOB GASTROINTESTINAL: -abdominal pain, -nausea, -vomiting, -diarrhea GENITOURINARY: +dysuria, -hematuria MUSCULOSKELETAL: -back pain, -neck pain SKIN: -rash or skin lesions. HEMATOLOGIC: -easy bruising or bleeding. LYMPHATIC: -swollen, enlarged glands. NEUROLOGICAL: -altered mental status or loss of consciousness, -headache, - neurologic symptoms PSYCHIATRIC: -anxiety, -depression. ALL OTHER SYSTEMS REVIEWED AND NEGATIVE. Physical Exam - Vital signs Vitals: Resp Pulse Ox 15 95 06/25/17 14:28 06/25/17 14:28 - Notes Notes: PHYSICAL EXAMINATION: GENERAL: Chronically ill-appearing. HEAD: Atraumatic, normocephalic. EYES: Pupils equal round and reactive to light, extraocular movements intact, sclera anicteric, conjunctiva are normal. ENT: nares patent, oropharynx clear without exudates. Moist mucous membranes. NECK: Normal range of motion, supple without lymphadenopathy LUNGS: Diffuse coarse breath sounds. No respiratory distress. HEART: Tachycardia, regular rhythm. ABDOMEN: Soft, nontender, normoactive bowel sounds. No guarding, no rebound. No masses appreciated. EXTREMITIES: Chronic edema in the left upper extremity, right lower extremity and left lower extremity. Strong distal pulses NEUROLOGICAL: Moves all 4 extremities. SKIN: Warm, Dry, normal turgor, no rashes or lesions noted. Course - Re-evaluation Re-evalutation: Patient arrives tachycardic with diffuse coarse breath sounds. She was found to have a leukocytosis and evidence of a UTI. She is in the low 90s on her home 2 L nasal cannula. Chest x-ray does not show any focal infiltrates. Antibiotics started. With her UTI, persistent tachycardia, leukocytosis and increased confusion, according to her , patient requires admission for further evaluation and treatment of her sepsis. Attempted to obtain a V/Q scan to assess for possibility of PE, but patient unable to tolerate laying on the table. Her said that she has an allergic reaction to IV dye, but he is unsure what it is. Will defer CTA chest at this time. Suspect her coarse breath sounds, slight hypoxia and cough are related to her bronchitis. Her primary care physician is Dr. Bravo. 06/25/17 20:[address] Bravo and he has accepted patient as inpatient to telemetry. - Vital Signs Vital signs: Temp Pulse Resp BP Pulse Ox 97.7 F 16 122/99 H 93 06/25/17 14:38 06/25/17 18:00 06/25/17 17:23 06/25/17 18:00 - Laboratory Result Diagrams: 06/25/17 15:53 06/25/17 15:53 Laboratory results interpreted by me: 06/25/17 06/25/17 06/25/17 15:53 15:53 15:53 WBC 12.3 H D-Dimer 1.84 H Sodium 126.5 L Chloride 90 L Carbon Dioxide 31 H BUN 6 L Direct Bilirubin 0.7 H AST 47 H Creatine Kinase 593 H Albumin 2.8 L Urine Protein Urine Ketones Urine Blood Urine Bilirubin Urine Urobilinogen Ur Leukocyte Esterase 06/25/17 17:55 WBC D-Dimer Sodium Chloride Carbon Dioxide BUN Direct Bilirubin AST Creatine Kinase Albumin Urine Protein 100 H Urine Ketones 20 H Urine Blood SMALL H Urine Bilirubin MODERATE H Urine Urobilinogen 4.0 H Ur Leukocyte Esterase MODERATE H - Diagnostic Test Radiology reviewed: Image reviewed, Reports reviewed Radiology results interpreted by me: CXR: NAD - EKG Interpretation by Me EKG shows normal: Sinus rhythm, [place], Intervals, QRS Complexes, ST-T Waves Rate: Tachycardia [place]/QRS: RBBB Discharge - Discharge Clinical Impression: Confusion, 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
[2017-06-25] MEDS ORDERED: IPRATROPIUM/ALBUTEROL 0.5-2.5 MG/3 ML AMPUL NEB ONE (15:32)
--- NOTE | 2017-06-25 15:45 | RADIOLOGY REPORT (SQ) ---
EXAM DESCRIPTION: CHEST SINGLE VIEW COMPLETED DATE/TIME: 06/25/2017 3:30 pm REASON FOR STUDY: SOB COMPARISON: CT chest 12/24/2016 EXAM PARAMETERS: NUMBER OF VIEWS: One view. TECHNIQUE: Single frontal radiographic view of the chest acquired. RADIATION DOSE: NA LIMITATIONS: Right lung apex partly cropped from the field of view FINDINGS: LUNGS AND PLEURA: No opacities, masses or pneumothorax. No pleural effusion. MEDIASTINUM AND HILAR STRUCTURES: No masses. Contour normal. HEART AND VASCULAR STRUCTURES: Heart normal in size. Normal vasculature. BONES: No acute findings. HARDWARE: Clips right upper quadrant post cholecystectomy OTHER: No other significant finding. IMPRESSION: NO ACUTE RADIOGRAPHIC FINDING IN THE CHEST. TECHNICAL DOCUMENTATION: JOB ID: [id number] [employer]- All Rights Reserved Reading location - IP/workstation name: [email or web address]
[2017-06-25 16:12] LABS: VENOUS BLOOD BASE EXCESS 4.7 mmol/L; VENOUS BLOOD HCO3 31.5 mmol/L (20-32); VENOUS BLOOD PCO2 54.4 mmHg (35-63); VENOUS BLOOD PH 7.38 (7.30-7.42)
[2017-06-25 16:13] LABS: ABSOLUTE BASOPHILS # (AUTO) 0.2 10^3/uL (0.0-0.2); ABSOLUTE EOSINOPHILS # (AUTO) 0.1 10^3/uL (0.0-0.6); ABSOLUTE LYMPHOCYTES (AUTO) 3.1 10^3/uL (0.5-4.7); ABSOLUTE MONOCYTES (AUTO) 1.4 10^3/uL (0.1-1.4); ABSOLUTE NEUT (AUTO) 7.5 10^3/uL (1.7-8.2); BASOPHILS % (AUTO) 1.7 % (0-2); HEMATOCRIT 43.3 % (36.0-47.0); HEMOGLOBIN 14.7 g/dL (12.0-15.5); LYMPHOCYTES % (AUTO) 24.9 % (13-45); MEAN CORPUSCULAR HEMOGLOBIN 32.7 pg (27.0-33.4); MEAN CORPUSCULAR VOLUME 96 fl (80-97); MONOCYTES % (AUTO) 11.7 % (3-13); PLATELET COUNT 304 10^3/uL (150-450); RED BLOOD COUNT 4.51 10^6/uL (3.72-5.28); RED CELL DISTRIBUTION WIDTH 13.5 % (11.5-14.0); SEGMENTED NEUTROPHILS % (AUTO) 60.7 % (42-78); TOTAL CELLS COUNTED % (AUTO) 100 %; WHITE BLOOD COUNT 12.3 10^3/uL (4.0-10.5)
[2017-06-25 16:37] LABS: A TYPE INFLUENZA AG NEGATIVE (NEGATIVE); ALANINE AMINOTRANSFERASE 12 U/L (9-52); ALBUMIN 2.8 g/dL (3.5-5.0); ALKALINE PHOSPHATASE 64 U/L (38-126); ANION GAP 6 (5-19); ASPARTATE AMINO TRANSFERASE 47 U/L (14-36); B INFLUENZA AG NEGATIVE (NEGATIVE); BILIRUBIN,DIRECT 0.7 mg/dL (0.0-0.4); BILIRUBIN,TOTAL 0.7 mg/dL (0.2-1.3); BLOOD UREA NITROGEN 6 mg/dL (7-20); CALCIUM 9.2 mg/dL (8.4-10.2); CARBON DIOXIDE 31 mmol/L (22-30); CHLORIDE 90 mmol/L (98-107); CREATINE KINASE 593 U/L (30-135); GLUCOSE 92 mg/dL (75-110); SODIUM 126.5 mmol/L (137-145); TOTAL PROTEIN 6.6 g/dL (6.3-8.2)
[2017-06-25 18:17] LABS: APPEARANCE,URINE CLOUDY; BILIRUBIN,URINE MODERATE (NEGATIVE); COLOR,URINE AMBER; GLUCOSE, URINE NEGATIVE (NEGATIVE); KETONES,URINE 20 mg/dL (NEGATIVE); LEUKOCYTE ESTERASE,URINE MODERATE (NEGATIVE); NITRITE,URINE NEGATIVE (NEGATIVE); PROTEIN,URINE 100 mg/dL (NEGATIVE); URINE SPECIFIC GRAVITY 1.034
[2017-06-25] MEDS ORDERED: CEFTRIAXONE 1 GM/D5W RTU 1 GM/50 ML RTUPB IV ONE (18:23)
--- NOTE | 2017-06-25 19:05 | EKG REPORT ---
SEVERITY:- ABNORMAL ECG - POSSIBLE ATRIAL FIBRILLATION. RIGHT BUNDLE BRANCH BLOCK : Confirmed by: South Daniels MD 25-Jun-2017 19:04:57
[2017-06-25] MEDS ORDERED: CEFTRIAXONE SODIUM 1,000 MG in NORMAL SALINE 100 ML IV ONE (21:00)
[2017-06-25] MEDS ORDERED: NORMAL SALINE 1000 ML 1,000 ML IV PRN (22:20)
[2017-06-25 23:34] LABS: CREATINE KINASE MB 7.04 ng/mL (<4.55)
[2017-06-25 23:35] LABS: TROPONIN I < 0.012 ng/mL
[2017-06-26 00:03] LABS: INTERNATIONAL RATION (INR) 1.03; PROTHROMBIN TIME 14.3 SEC (11.4-15.4)
[2017-06-26 00:36] LABS: PHOSPHORUS 3.6 mg/dL (2.5-4.5)
[2017-06-26 00:43] LABS: FREE T4 (FREE THYROXINE) 3.02 ng/dL (0.78-2.19)
[2017-06-26 00:57] LABS: THYROID STIMULATING HORMONE 1.84 uIU/mL (0.47-4.68)
[2017-06-26 05:32] LABS: ABSOLUTE BASOPHILS # (AUTO) 0.1 10^3/uL (0.0-0.2); ABSOLUTE EOSINOPHILS # (AUTO) 0.1 10^3/uL (0.0-0.6); ABSOLUTE LYMPHOCYTES (AUTO) 2.6 10^3/uL (0.5-4.7); ABSOLUTE MONOCYTES (AUTO) 0.7 10^3/uL (0.1-1.4); BASOPHILS % (AUTO) 1.3 % (0-2); EOSINOPHILS % (AUTO) 1.3 % (0-6); HEMOGLOBIN 13.4 g/dL (12.0-15.5); LYMPHOCYTES % (AUTO) 30.1 % (13-45); MEAN CORPUSCULAR HEMOGLOBIN 32.9 pg (27.0-33.4); MEAN CORPUSCULAR HGB CONC 34.4 g/dL (32.0-36.0); MEAN CORPUSCULAR VOLUME 96 fl (80-97); MONOCYTES % (AUTO) 8.7 % (3-13); PLATELET COUNT 184 10^3/uL (150-450); RED BLOOD COUNT 4.07 10^6/uL (3.72-5.28); SEGMENTED NEUTROPHILS % (AUTO) 58.6 % (42-78); TOTAL CELLS COUNTED % (AUTO) 100 %; WHITE BLOOD COUNT 8.5 10^3/uL (4.0-10.5)
[2017-06-26 06:03] LABS: CREATINE KINASE MB 6.46 ng/mL (<4.55)
[2017-06-26 06:25] LABS: TROPONIN I < 0.012 ng/mL
[2017-06-26 06:31] LABS: BLOOD UREA NITROGEN 7 mg/dL (7-20); CALCIUM 8.8 mg/dL (8.4-10.2); CHLORIDE 94 mmol/L (98-107); GLUCOSE 82 mg/dL (75-110); POTASSIUM 4.2 mmol/L (3.6-5.0)
[2017-06-26 06:32] LABS: ALANINE AMINOTRANSFERASE 14 U/L (9-52); ALBUMIN 2.4 g/dL (3.5-5.0); ALKALINE PHOSPHATASE 51 U/L (38-126); ASPARTATE AMINO TRANSFERASE 38 U/L (14-36); BILIRUBIN,TOTAL 0.4 mg/dL (0.2-1.3)
[2017-06-26 06:33] LABS: BILIRUBIN,DIRECT 0.4 mg/dL (0.0-0.4); TOTAL PROTEIN 5.7 g/dL (6.3-8.2)
[2017-06-26 06:43] LABS: CARBON DIOXIDE 29 mmol/L (22-30); CREATINE KINASE 289 U/L (30-135)
[2017-06-26 06:47] LABS: ANION GAP 5 (5-19)
[2017-06-26] MEDS ORDERED: CEFTRIAXONE 2 GM/D5W RTU 2 GM/50 ML RTUPB IV SCH (10:00)
[2017-06-26] MEDS: ENOXAPARIN SODIUM INJ 40 MG/0.4 ML DISP.SYRIN SUBCUT SCH (10:31)
[2017-06-26] MEDS ORDERED: DEXTROSE 50%-WATER 25 GM/50 ML DISP.SYRIN IV ONE ×2 (11:13→12:00)
[2017-06-26] MEDS ORDERED: CEFTRIAXONE 2 GM/D5W RTU 2 GM/50 ML RTUPB IV ONE (11:30)
[2017-06-26] MEDS ORDERED: DEXTROSE 50%-WATER 25 GM/50 ML DISP.SYRIN IV PRN ×2 (11:38)
[2017-06-26] MEDS ORDERED: DEXTROSE 40% GEL 15 GM TUBE PO PRN (11:38)
[2017-06-26] MEDS ORDERED: INSULIN LISPRO 100 UNIT/ML 3 ML VIAL SUBCUT PRN (11:38)
[2017-06-26] MEDS ORDERED: GLUCAGON,HUMAN RECOMB 1 MG INJ IM PRN (11:38)
[2017-06-26] MEDS ORDERED: LANSOPRAZOLE 30 MG TAB.RAP.DR PO ONE (13:00)
[2017-06-26] MEDS ORDERED: DIVALPROEX SODIUM 250 MG TABLET.DR PO ONE (13:00)
[2017-06-26] MEDS ORDERED: LEVOTHYROXINE SODIUM 0.075 MG TABLET PO ONE (13:00)
[2017-06-26] MEDS ORDERED: LEVOTHYROXINE SODIUM 0.1 MG TABLET PO ONE (13:00)
[2017-06-26 13:22] LABS: ARTERIAL BLOOD FIO2 ROOM AIR; ARTERIAL BLOOD H2CO3 1.32 mmol/L (1.05-1.35); ARTERIAL BLOOD HCO3 29.6 mmol/L (20-26); ARTERIAL BLOOD O2 SATURATION 95.8 % (94-98); ARTERIAL BLOOD PCO2 43.7 mmHg (35-45); ARTERIAL BLOOD PH 7.45 (7.35-7.45); ARTERIAL BLOOD PO2 76.8 mmHg (80-100)
[2017-06-26 13:34] LABS: CREATINE KINASE MB 3.54 ng/mL (<4.55)
[2017-06-26 13:38] LABS: TROPONIN I < 0.012 ng/mL
[2017-06-26] MEDS ORDERED: ONDANSETRON HCL INJ/PF 4 MG/2 ML SDV IV PRN (14:30)
--- NOTE | 2017-06-26 14:49 | RADIOLOGY REPORT (SQ) ---
EXAM DESCRIPTION: CT CHEST WITHOUT COMPLETED DATE/TIME: 06/26/2017 2:37 pm REASON FOR STUDY: pneumonia COMPARISON: AP chest 06/25/2017 CT chest 12/24/2016 TECHNIQUE: CT scan performed of the chest without intravenous contrast. Images reviewed with lung, soft tissue and bone windows. Reconstructed coronal and sagittal MPR images reviewed. All images st ored on PACS. All CT scanners at this facility use dose modulation, iterative reconstruction, and/or weight based d osing when appropriate to reduce radiation dose to as low as reasonably achievable (ALARA). [facility]: Dose Right [facility]: CareDose [facility]: Dose Right [facility]: Teradose 4D [facility]: [employer] RADIATION DOSE: CT Rad equipment meets quality standard of care and radiation dose reduction techniq ues were employed. CTDIvol: 21.1 mGy. DLP: 768 mGy-cm. mGy. LIMITATIONS: No technical limitations. FINDINGS: LUNGS AND PLEURA: There are no acute infiltrates. There is a chronic loculated pocket of pleural fluid in the right posterior chest unchanged from 12/24, measuring about 10 cm craniocaudad by 6 cm transverse by 2 cm AP. There is a rind of pleural thickening and adjacent chronic appearing lung parenchymal scarring. Trace freely layering left pleural effusion. No pneumothorax HILAR AND MEDIASTINAL STRUCTURES: No identified masses or abnormal nodes. No obvious aneurysm. HEART AND VASCULAR STRUCTURES: No aneurysm. No pericardial effusion. UPPER ABDOMEN: Clips right upper quadrant post cholecystectomy THYROID AND OTHER SOFT TISSUES: No masses. No adenopathy. BONES: No significant finding. HARDWARE: None in the chest. OTHER: No other significant findings. IMPRESSION: No acute findings. Chronic loculated pocket of pleural fluid in the right posterior chest with a rind of pleural thicken ing and adjacent lung parenchymal scarring. This is unchanged from 12/24/2016. TECHNICAL DOCUMENTATION: JOB ID: [id number] Quality ID # [id number]: Final reports with documentation of one or more dose reduction techniques (e.g., Au tomated exposure control, adjustment of the mA and/or kV according to patient size, use of iterative reconstruction technique) 2010 [employer]- All Rights Reserved Reading location - IP/workstation name: [id number]
--- NOTE | 2017-06-26 15:35 | PDOC H&P ---
History of Present Illness Admission Date/PCP: 06/25/17 20:43 SHA BRAVO MD History of Present Illness: NGHIA DAVID is a 66 year old female, she is chronically debilitated, homebound essentially sedentary she was brought to the emergency room by who also is the caregiver low oxygen saturation, persistent cough, patient's stated that the oxygen saturation was 78%, she normally uses oxygen at home at 2 L he called the rescue squad on she was transferred to the emergency room for evaluation. The emergency room she was evaluated she was found to have tachycardia with diffuse coarse breath sounds on auscultation of the chest also found was leukocytosis, grossly abnormal urinalysis that suggest UTI the chest x-ray that was done did not show any focal infiltrate. Blood gas was done on room air PO2 76.8 pH 7.45 bicarbonate 29.6 PCO2 31, CT chest without contrast was done he showed no acute infiltrates, there is a chronic loculated pocket of pleural fluid in the right posterior chest unchanged from measures 10 cm the craniocaudad dimension there is no definite infiltrate to suggest pneumonia patient is bedbound essentially nonfunctioning, she does not ambulate. She was also found to have hyponatremia, the urine osmolality was high more than 100, the hyponatremia is of SIADH type. She has a history of asthma Past Medical History Cardiac Medical History: Reports: Hypertension Pulmonary Medical History: Reports: Asthma Neurological Medical History: Reports: Seizures - BED PADDED ON BOTH SIDES Endocrine Medical History: Reports: Diabetes Mellitus Type 2, Hypothyroidism Musculoskeltal Medical History: Reports: Arthritis Psychiatric Medical History: Reports: Depression Past Surgical History Past Surgical History: Reports: Cholecystectomy, Orthopedic Surgery - Toe surgery, Tonsillectomy Social History Smoking Status: Former Smoker Number of Years Smokin Frequency of Alcohol Use: None Hx Recreational Drug Use: No Drugs: None Hx Prescription Drug Abuse: No Family History Family History: Reviewed & Not Pertinent Parental Family History Reviewed: Yes Children Family History Reviewed: Yes Sibling(s) Family History Reviewed.: Yes Medication/Allergy Home Medications: Aspirin [Aspirin EC] 81 mg PO DAILY 06/25/17 Divalproex Sodium [Depakote] 250 mg PO QID 06/25/17 Levothyroxine Sodium [Synthroid] 175 mcg PO Q6AM 06/25/17 RX: Omeprazole 40 mg PO DAILY 06/25/17 RX: Trazodone HCl [Desyrel] 100 mg PO QHS 06/25/17 Allergies/Adverse Reactions: erythromycin base [Erythromycin Base] Allergy (Verified 05/02/15 00:44) Iodinated Contrast- Oral and IV Dye [IV Dye, Iodine Containing] Allergy ( Verified 05/02/15 00:44) Review of Systems Constitutional: PRESENT: fever(s) Eyes: ABSENT: visual disturbances Ears: ABSENT: hearing changes Cardiovascular: ABSENT: chest pain, dyspnea on exertion, edema, orthropnea, palpitations Respiratory: PRESENT: cough, dyspnea Gastrointestinal: ABSENT: abdominal pain, constipation, diarrhea, hematemesis, hematochezia, nausea, vomiting Genitourinary: ABSENT: dysuria, hematuria Musculoskeletal: ABSENT: joint swelling Integumentary: ABSENT: rash, wounds Neurological: PRESENT: tremor(s) Psychiatric: PRESENT: depression Endocrine: ABSENT: cold intolerance, heat intolerance, menstrual abnormalities, polydipsia, polyuria Hematologic/Lymphatic: ABSENT: easy bleeding, easy bruising, lymphadenopathy Physical Exam Vital Signs: Temp Pulse Resp BP Pulse Ox 98.6 F 101 H 16 108/67 96 06/26/17 11:30 06/26/17 11:30 06/26/17 11:30 06/26/17 11:30 06/26/17 11:30 Intake & Output 06/25/17 06/26/17 06/27/17 06:59 06:59 06:59 Intake Total 344 720 Output Total 100 Balance 244 720 Weight 121.1 kg General appearance: PRESENT: morbidly obese Head exam: PRESENT: atraumatic, normocephalic Eye exam: PRESENT: PERRLA Ear exam: PRESENT: normal external ear exam Mouth exam: PRESENT: moist, tongue midline Neck exam: PRESENT: full ROM Respiratory exam: PRESENT: wheezes Cardiovascular exam: PRESENT: RRR, +S1, +S2 Vascular exam: PRESENT: normal capillary refill GI/Abdominal exam: PRESENT: normal bowel sounds, soft Rectal exam: PRESENT: deferred Neurological exam: PRESENT: alert. ABSENT: motor sensory deficit Skin exam: PRESENT: dry Results Laboratory Results: 06/26/17 05:05 06/26/17 05:05 06/25/17 06/25/17 06/25/17 23:45 23:45 23:45 WBC RBC Hgb Hct MCV MCH MCHC RDW Plt Count Seg Neutrophils % Lymphocytes % Monocytes % Eosinophils % Basophils % Absolute Neutrophils Absolute Lymphocytes Absolute Monocytes Absolute Eosinophils Absolute Basophils Carbonic Acid HCO3/H2CO3 Ratio ABG pH ABG pCO2 ABG pO2 ABG HCO3 ABG O2 Saturation ABG Base Excess FiO2 Sodium Potassium Chloride Carbon Dioxide Anion Gap BUN Creatinine Est GFR ( Amer) Est GFR (Non-Af Amer) Glucose Serum Osmolality 270 L Calcium Phosphorus 3.6 Magnesium 1.6 Total Bilirubin AST ALT Alkaline Phosphatase Total Protein Albumin TSH 1.84 Free T4 3.02 H 06/26/17 06/26/17 06/26/17 05:05 05:05 12:00 WBC 8.5 RBC 4.07 Hgb 13.4 Hct 39.0 MCV 96 MCH 32.9 MCHC 34.4 RDW 14.0 Plt Count 184 Seg Neutrophils % 58.6 Lymphocytes % 30.1 Monocytes % 8.7 Eosinophils % 1.3 Basophils % 1.3 Absolute Neutrophils 5.0 Absolute Lymphocytes 2.6 Absolute Monocytes 0.7 Absolute Eosinophils 0.1 Absolute Basophils 0.1 Carbonic Acid 1.32 HCO3/H2CO3 Ratio 22:1 ABG pH 7.45 ABG pCO2 43.7 ABG pO2 76.8 L ABG HCO3 29.6 H ABG O2 Saturation 95.8 ABG Base Excess 5.0 FiO2 ROOM AIR Sodium 127.0 L Potassium 4.2 Chloride 94 L Carbon Dioxide 29 Anion Gap 5 BUN 7 Creatinine 0.61 Est GFR ( Amer) > 60 Est GFR (Non-Af Amer) > 60 Glucose 82 Serum Osmolality Calcium 8.8 Phosphorus Magnesium Total Bilirubin 0.4 AST 38 H ALT 14 Alkaline Phosphatase 51 Total Protein 5.7 L Albumin 2.4 L TSH Free T4 06/25/17 06/25/17 06/26/17 22:55 22:55 05:05 Creatine Kinase 398 H 289 H CK-MB (CK-2) 7.04 H Troponin I < 0.012 06/26/17 06/26/17 06/26/17 05:05 10:58 10:58 Creatine Kinase 197 H CK-MB (CK-2) 6.46 H 3.54 Troponin I < 0.012 < 0.012 Impressions: Chest X-Ray 06/25/17 14:30 IMPRESSION: NO ACUTE RADIOGRAPHIC FINDING IN THE CHEST. Chest CT 02/24/18 00:00 IMPRESSION: No acute findings. Chronic loculated pocket of pleural fluid in the right posterior chest with a rind of pleural thickening and adjacent lung parenchymal scarring. This is unchanged from 12/24/2016. Assessment & Plan - Diagnosis (1) Urinary tract infection Qualifiers: Urinary tract infection type: acute cystitis Hematuria presence: without hematuria Qualified Code(s): N30.00 - Acute cystitis without hematuria Is this a current diagnosis for this admission?: Yes Plan: She will empirically be treated with IV antibiotic for presumptive UTI, urine sent for culture (2) Moderate persistent asthma with (acute) exacerbation Is this a current diagnosis for this admission?: Yes Plan: Treated with bronchodilators (3) Debilitated patient Is this a current diagnosis for this admission?: Yes (5) SIADH (syndrome of inappropriate ADH production) Is this a current diagnosis for this admission?: Yes
[2017-06-26] MEDS: NORMAL SALINE 1000 ML 1,000 ML IV PRN (16:50)
[2017-06-26] MEDS: CIPROFLOXACIN HCL 0.3% OPH SOLN 2.5 ML OU SCH ×2 (17:08→23:48)
[2017-06-26] MEDS: DIVALPROEX SODIUM 250 MG TABLET.DR PO SCH ×2 (17:09→23:48)
[2017-06-26] MEDS ORDERED: (PENDING PHARMACY ID) (Trazodone Hcl [Desyrel] 100 MG) PO SCH (22:00)
[2017-06-26] MEDS: TRAZODONE HCL 50 MG TABLET PO SCH (22:13)
[2017-06-27] MEDS: NORMAL SALINE 1000 ML 1,000 ML IV PRN ×2 (02:27→10:11)
[2017-06-27 05:14] LABS: ABSOLUTE BASOPHILS # (AUTO) 0.1 10^3/uL (0.0-0.2); ABSOLUTE LYMPHOCYTES (AUTO) 2.9 10^3/uL (0.5-4.7); ABSOLUTE MONOCYTES (AUTO) 0.7 10^3/uL (0.1-1.4); ABSOLUTE NEUT (AUTO) 3.5 10^3/uL (1.7-8.2); BASOPHILS % (AUTO) 1.3 % (0-2); EOSINOPHILS % (AUTO) 0.2 % (0-6); HEMOGLOBIN 12.3 g/dL (12.0-15.5); LYMPHOCYTES % (AUTO) 39.7 % (13-45); MEAN CORPUSCULAR HEMOGLOBIN 33.1 pg (27.0-33.4); MEAN CORPUSCULAR VOLUME 97 fl (80-97); MONOCYTES % (AUTO) 10.1 % (3-13); PLATELET COUNT 222 10^3/uL (150-450); RED BLOOD COUNT 3.71 10^6/uL (3.72-5.28); RED CELL DISTRIBUTION WIDTH 14.1 % (11.5-14.0); SEGMENTED NEUTROPHILS % (AUTO) 48.7 % (42-78); TOTAL CELLS COUNTED % (AUTO) 100 %; WHITE BLOOD COUNT 7.2 10^3/uL (4.0-10.5)
[2017-06-27 05:46] LABS: ALANINE AMINOTRANSFERASE 14 U/L (9-52); ALKALINE PHOSPHATASE 48 U/L (38-126); ANION GAP 8 (5-19); ASPARTATE AMINO TRANSFERASE 23 U/L (14-36); BILIRUBIN,DIRECT 0.2 mg/dL (0.0-0.4); BILIRUBIN,TOTAL 0.2 mg/dL (0.2-1.3); BLOOD UREA NITROGEN 7 mg/dL (7-20); CALCIUM 8.4 mg/dL (8.4-10.2); CARBON DIOXIDE 29 mmol/L (22-30); CHLORIDE 92 mmol/L (98-107); GLUCOSE 110 mg/dL (75-110); SODIUM 128.6 mmol/L (137-145); TOTAL PROTEIN 4.8 g/dL (6.3-8.2)
[2017-06-27] MEDS ORDERED: (PENDING PHARMACY ID) (Levothyroxine Sodium [Synthroid] 175 MCG) PO SCH (06:00)
[2017-06-27] MEDS: LEVOTHYROXINE SODIUM 0.1 MG TABLET PO SCH (07:01)
[2017-06-27] MEDS: CIPROFLOXACIN HCL 0.3% OPH SOLN 2.5 ML OU SCH ×4 (07:02→23:21)
[2017-06-27] MEDS: LANSOPRAZOLE 30 MG TAB.RAP.DR PO SCH (07:02)
[2017-06-27] MEDS: DIVALPROEX SODIUM 250 MG TABLET.DR PO SCH ×4 (07:02→23:21)
[2017-06-27] MEDS: LEVOTHYROXINE SODIUM 0.075 MG TABLET PO SCH (07:03)
[2017-06-27] MEDS: ENOXAPARIN SODIUM INJ 40 MG/0.4 ML DISP.SYRIN SUBCUT SCH (09:54)
[2017-06-27] MEDS: ASPIRIN 81 MG TABLET, ENT COATED PO SCH (09:55)
[2017-06-27] MEDS: CEFTRIAXONE 2 GM/D5W RTU 2 GM/50 ML RTUPB IV SCH (09:55)
--- NOTE | 2017-06-27 14:39 | PDOC PROGRESS REPORT ---
Subjective Progress Note for:: 06/27/17 Subjective:: She was admitted yesterday, she was seen today by the bedside, there is no new complaints Reason For Visit: UTI Physical Exam Vital Signs: Temp Pulse Resp BP Pulse Ox 98.7 F 99 16 107/49 L 97 06/27/17 12:12 06/27/17 12:12 06/27/17 12:12 06/27/17 12:12 06/27/17 12:12 Intake & Output 06/26/17 06/27/17 06/28/17 06:59 06:59 06:59 Intake Total 344 2590 300 Output Total 100 650 Balance 244 1940 300 Weight 121.1 kg 123.6 kg General appearance: PRESENT: no acute distress Eye exam: PRESENT: PERRLA Respiratory exam: PRESENT: clear to auscultation luna Cardiovascular exam: PRESENT: +S1, +S2 GI/Abdominal exam: PRESENT: soft Neurological exam: PRESENT: alert Results Laboratory Results: 06/27/17 04:34 06/27/17 04:34 06/27/17 06/27/17 04:34 04:34 WBC 7.2 RBC 3.71 L Hgb 12.3 Hct 36.0 MCV 97 MCH 33.1 MCHC 34.0 RDW 14.1 H Plt Count 222 Seg Neutrophils % 48.7 Lymphocytes % 39.7 Monocytes % 10.1 Eosinophils % 0.2 Basophils % 1.3 Absolute Neutrophils 3.5 Absolute Lymphocytes 2.9 Absolute Monocytes 0.7 Absolute Eosinophils 0.0 Absolute Basophils 0.1 Sodium 128.6 L Potassium 4.0 Chloride 92 L Carbon Dioxide 29 Anion Gap 8 BUN 7 Creatinine 0.56 Est GFR ( Amer) > 60 Est GFR (Non-Af Amer) > 60 Glucose 110 Calcium 8.4 Total Bilirubin 0.2 AST 23 ALT 14 Alkaline Phosphatase 48 Total Protein 4.8 L Albumin 2.0 L 06/25/17 06/25/17 06/26/17 22:55 22:55 05:05 Creatine Kinase 398 H 289 H CK-MB (CK-2) 7.04 H Troponin I < 0.012 06/26/17 06/26/17 06/26/17 05:05 10:58 10:58 Creatine Kinase 197 H CK-MB (CK-2) 6.46 H 3.54 Troponin I < 0.012 < 0.012 Impressions: Chest X-Ray 06/25/17 14:30 IMPRESSION: NO ACUTE RADIOGRAPHIC FINDING IN THE CHEST. Chest CT 06/26/17 00:00 IMPRESSION: No acute findings. Chronic loculated pocket of pleural fluid in the right posterior chest with a rind of pleural thickening and adjacent lung parenchymal scarring. This is unchanged from 12/24/2016. Assessment & Plan - Diagnosis (1) Urinary tract infection Qualifiers: Urinary tract infection type: acute cystitis Hematuria presence: without hematuria Qualified Code(s): N30.00 - Acute cystitis without hematuria Is this a current diagnosis for this admission?: Yes (2) Moderate persistent asthma with (acute) exacerbation Is this a current diagnosis for this admission?: Yes (3) Debilitated patient Is this a current diagnosis for this admission?: Yes (4) Hyponatremia Is this a current diagnosis for this admission?: Yes (5) SIADH (syndrome of inappropriate ADH production) Is this a current diagnosis for this admission?: Yes
[2017-06-27] MEDS: NYSTATIN TOPICAL POWDER 15 GM TP SCH (17:07)
[2017-06-27] MEDS: TRAZODONE HCL 50 MG TABLET PO SCH (22:18)
[2017-06-28 05:10] LABS: ABSOLUTE BASOPHILS # (AUTO) 0.1 10^3/uL (0.0-0.2); ABSOLUTE EOSINOPHILS # (AUTO) 0.2 10^3/uL (0.0-0.6); ABSOLUTE LYMPHOCYTES (AUTO) 3.3 10^3/uL (0.5-4.7); ABSOLUTE MONOCYTES (AUTO) 0.8 10^3/uL (0.1-1.4); ABSOLUTE NEUT (AUTO) 4.7 10^3/uL (1.7-8.2); BASOPHILS % (AUTO) 1.5 % (0-2); EOSINOPHILS % (AUTO) 1.7 % (0-6); HEMATOCRIT 37.8 % (36.0-47.0); HEMOGLOBIN 13.1 g/dL (12.0-15.5); LYMPHOCYTES % (AUTO) 36.1 % (13-45); MEAN CORPUSCULAR HEMOGLOBIN 33.3 pg (27.0-33.4); MEAN CORPUSCULAR HGB CONC 34.6 g/dL (32.0-36.0); MEAN CORPUSCULAR VOLUME 96 fl (80-97); MONOCYTES % (AUTO) 8.9 % (3-13); PLATELET COUNT 239 10^3/uL (150-450); RED BLOOD COUNT 3.93 10^6/uL (3.72-5.28); RED CELL DISTRIBUTION WIDTH 14.1 % (11.5-14.0); SEGMENTED NEUTROPHILS % (AUTO) 51.8 % (42-78); TOTAL CELLS COUNTED % (AUTO) 100 %; WHITE BLOOD COUNT 9.1 10^3/uL (4.0-10.5)
[2017-06-28] MEDS: CIPROFLOXACIN HCL 0.3% OPH SOLN 2.5 ML OU SCH ×3 (05:15→17:00)
[2017-06-28] MEDS: DIVALPROEX SODIUM 250 MG TABLET.DR PO SCH ×3 (05:15→17:01)
[2017-06-28] MEDS: LEVOTHYROXINE SODIUM 0.1 MG TABLET PO SCH (05:16)
[2017-06-28] MEDS: LEVOTHYROXINE SODIUM 0.075 MG TABLET PO SCH (05:16)
[2017-06-28] MEDS: LANSOPRAZOLE 30 MG TAB.RAP.DR PO SCH (05:16)
[2017-06-28 05:34] LABS: ALANINE AMINOTRANSFERASE 9 U/L (9-52); ALBUMIN 2.4 g/dL (3.5-5.0); ALKALINE PHOSPHATASE 63 U/L (38-126); ANION GAP 5 (5-19); ASPARTATE AMINO TRANSFERASE 26 U/L (14-36); BILIRUBIN,DIRECT 0.2 mg/dL (0.0-0.4); BILIRUBIN,TOTAL 0.2 mg/dL (0.2-1.3); BLOOD UREA NITROGEN 7 mg/dL (7-20); CALCIUM 8.8 mg/dL (8.4-10.2); CARBON DIOXIDE 30 mmol/L (22-30); CHLORIDE 96 mmol/L (98-107); GLUCOSE 96 mg/dL (75-110); SODIUM 130.7 mmol/L (137-145); TOTAL PROTEIN 5.4 g/dL (6.3-8.2)
[2017-06-28] MEDS: ASPIRIN 81 MG TABLET, ENT COATED PO SCH (09:23)
[2017-06-28] MEDS: ENOXAPARIN SODIUM INJ 40 MG/0.4 ML DISP.SYRIN SUBCUT SCH (09:23)
[2017-06-28] MEDS: CEFTRIAXONE 2 GM/D5W RTU 2 GM/50 ML RTUPB IV SCH (09:24)
[2017-06-28] MEDS: ACETAMINOPHEN 325 MG TABLET PO PRN (10:24)
[2017-06-28] MEDS: NYSTATIN TOPICAL POWDER 15 GM TP SCH ×2 (11:38→17:00)
--- NOTE | 2017-06-28 21:55 | PDOC PROGRESS REPORT ---
Subjective Progress Note for:: 06/28/17 Subjective:: The biggest challenge for this patient is the nonambulatory status Reason For Visit: UTI Physical Exam Vital Signs: Temp Pulse Resp BP Pulse Ox 98.3 F 77 21 H 124/89 H 96 06/28/17 19:50 06/28/17 19:50 06/28/17 19:50 06/28/17 19:50 06/28/17 19:50 Intake & Output 06/27/17 06/28/17 06/29/17 06:59 06:59 06:59 Intake Total 2590 3060 1300 Output Total 650 300 200 Balance 1940 2760 1100 Weight 123.6 kg 129.4 kg General appearance: PRESENT: no acute distress Eye exam: PRESENT: PERRLA Respiratory exam: PRESENT: clear to auscultation luna Cardiovascular exam: PRESENT: +S1, +S2 GI/Abdominal exam: PRESENT: soft Neurological exam: PRESENT: alert Results Laboratory Results: 06/28/17 04:41 06/28/17 04:41 06/28/17 06/28/17 04:41 04:41 WBC 9.1 RBC 3.93 Hgb 13.1 Hct 37.8 MCV 96 MCH 33.3 MCHC 34.6 RDW 14.1 H Plt Count 239 Seg Neutrophils % 51.8 Lymphocytes % 36.1 Monocytes % 8.9 Eosinophils % 1.7 Basophils % 1.5 Absolute Neutrophils 4.7 Absolute Lymphocytes 3.3 Absolute Monocytes 0.8 Absolute Eosinophils 0.2 Absolute Basophils 0.1 Sodium 130.7 L Potassium 4.0 Chloride 96 L Carbon Dioxide 30 Anion Gap 5 BUN 7 Creatinine 0.52 Est GFR ( Amer) > 60 Est GFR (Non-Af Amer) > 60 Glucose 96 Calcium 8.8 Total Bilirubin 0.2 AST 26 ALT 9 Alkaline Phosphatase 63 Total Protein 5.4 L Albumin 2.4 L 06/25/17 06/25/17 06/26/17 22:55 22:55 05:05 Creatine Kinase 398 H 289 H CK-MB (CK-2) 7.04 H Troponin I < 0.012 06/26/17 06/26/17 06/26/17 05:05 10:58 10:58 Creatine Kinase 197 H CK-MB (CK-2) 6.46 H 3.54 Troponin I < 0.012 < 0.012 Impressions: Chest X-Ray 06/25/17 14:30 IMPRESSION: NO ACUTE RADIOGRAPHIC FINDING IN THE CHEST. Chest CT 06/26/17 00:00 IMPRESSION: No acute findings. Chronic loculated pocket of pleural fluid in the right posterior chest with a rind of pleural thickening and adjacent lung parenchymal scarring. This is unchanged from 12/24/2016. Assessment & Plan - Diagnosis (1) Urinary tract infection Qualifiers: Urinary tract infection type: acute cystitis Hematuria presence: without hematuria Qualified Code(s): N30.00 - Acute cystitis without hematuria Is this a current diagnosis for this admission?: Yes (2) Moderate persistent asthma with (acute) exacerbation Is this a current diagnosis for this admission?: Yes (3) Debilitated patient Is this a current diagnosis for this admission?: Yes (4) Hyponatremia Is this a current diagnosis for this admission?: Yes (5) SIADH (syndrome of inappropriate ADH production) Is this a current diagnosis for this admission?: Yes - Plan Summary Plan Summary: no change in condition,continue treatment
[2017-06-28] MEDS ORDERED: NA PHOS,M-B/NA PHOS,DI-BA (ADULT) 133 ML ENEMA PR ONE (22:00)
[2017-06-28] MEDS: TRAZODONE HCL 50 MG TABLET PO SCH (22:45)
[2017-06-29] MEDS: DIVALPROEX SODIUM 250 MG TABLET.DR PO SCH ×5 (00:45→23:37)
[2017-06-29] MEDS: CIPROFLOXACIN HCL 0.3% OPH SOLN 2.5 ML OU SCH ×5 (00:45→23:37)
[2017-06-29] MEDS: LEVOTHYROXINE SODIUM 0.1 MG TABLET PO SCH (05:37)
[2017-06-29] MEDS: LEVOTHYROXINE SODIUM 0.075 MG TABLET PO SCH (05:37)
[2017-06-29] MEDS: LANSOPRAZOLE 30 MG TAB.RAP.DR PO SCH (05:37)
[2017-06-29] MEDS: DEXTROSE 40% GEL 15 GM TUBE PO PRN (07:14)
[2017-06-29] MEDS: CEFTRIAXONE 2 GM/D5W RTU 2 GM/50 ML RTUPB IV SCH (10:23)
[2017-06-29] MEDS: ENOXAPARIN SODIUM INJ 40 MG/0.4 ML DISP.SYRIN SUBCUT SCH (10:23)
[2017-06-29] MEDS: ASPIRIN 81 MG TABLET, ENT COATED PO SCH (10:24)
[2017-06-29] MEDS: NYSTATIN TOPICAL POWDER 15 GM TP SCH ×2 (10:24→18:13)
[2017-06-29] MEDS: NORMAL SALINE 1000 ML 1,000 ML IV PRN (11:47)
--- NOTE | 2017-06-29 19:38 | PDOC PROGRESS REPORT ---
Subjective Progress Note for:: 06/29/17 Subjective:: Patient was seen by the bedside, the spouse was in the room with, the blood culture grew Corynebacterium, most likely contamination, it was just a 1 bottle Reason For Visit: UTI Physical Exam Vital Signs: Temp Pulse Resp BP Pulse Ox 97.7 F 78 24 H 147/100 H 96 06/29/17 17:10 06/29/17 17:10 06/29/17 17:10 06/29/17 17:10 06/29/17 17:10 Intake & Output 06/28/17 06/29/17 06/30/17 06:59 06:59 06:59 Intake Total 3060 1620 1711 Output Total 300 520 490 Balance 2760 1100 1221 Weight 129.4 kg 132.1 kg General appearance: PRESENT: no acute distress Eye exam: PRESENT: PERRLA Respiratory exam: PRESENT: clear to auscultation luna Cardiovascular exam: PRESENT: +S1, +S2 GI/Abdominal exam: PRESENT: soft Neurological exam: PRESENT: alert Results Laboratory Results: 06/28/17 04:41 06/28/17 04:41 06/25/17 06/25/17 06/26/17 22:55 22:55 05:05 Creatine Kinase 398 H 289 H CK-MB (CK-2) 7.04 H Troponin I < 0.012 06/26/17 06/26/17 06/26/17 05:05 10:58 10:58 Creatine Kinase 197 H CK-MB (CK-2) 6.46 H 3.54 Troponin I < 0.012 < 0.012 Impressions: Chest X-Ray 06/25/17 14:30 IMPRESSION: NO ACUTE RADIOGRAPHIC FINDING IN THE CHEST. Chest CT 06/26/17 00:00 IMPRESSION: No acute findings. Chronic loculated pocket of pleural fluid in the right posterior chest with a rind of pleural thickening and adjacent lung parenchymal scarring. This is unchanged from 12/24/2016. Assessment & Plan - Diagnosis (1) Urinary tract infection Qualifiers: Urinary tract infection type: acute cystitis Hematuria presence: without hematuria Qualified Code(s): N30.00 - Acute cystitis without hematuria Is this a current diagnosis for this admission?: Yes (2) Moderate persistent asthma with (acute) exacerbation Is this a current diagnosis for this admission?: Yes (3) Debilitated patient Is this a current diagnosis for this admission?: Yes (4) Hyponatremia Is this a current diagnosis for this admission?: Yes (5) SIADH (syndrome of inappropriate ADH production) Is this a current diagnosis for this admission?: Yes
[2017-06-29] MEDS: IPRATROPIUM/ALBUTEROL 0.5-2.5 MG/3 ML AMPUL NEB PRN (20:20)
[2017-06-29] MEDS: TRAZODONE HCL 50 MG TABLET PO SCH (22:48)
[2017-06-30] MEDS: CIPROFLOXACIN HCL 0.3% OPH SOLN 2.5 ML OU SCH ×3 (05:42→18:29)
[2017-06-30] MEDS: LEVOTHYROXINE SODIUM 0.1 MG TABLET PO SCH (05:42)
[2017-06-30] MEDS: LANSOPRAZOLE 30 MG TAB.RAP.DR PO SCH (05:42)
[2017-06-30] MEDS: LEVOTHYROXINE SODIUM 0.075 MG TABLET PO SCH (05:42)
[2017-06-30] MEDS: DIVALPROEX SODIUM 250 MG TABLET.DR PO SCH ×3 (05:43→18:30)
[2017-06-30] MEDS: CEFTRIAXONE 2 GM/D5W RTU 2 GM/50 ML RTUPB IV SCH (10:29)
[2017-06-30] MEDS: ASPIRIN 81 MG TABLET, ENT COATED PO SCH (10:29)
[2017-06-30] MEDS: ENOXAPARIN SODIUM INJ 40 MG/0.4 ML DISP.SYRIN SUBCUT SCH (10:30)
[2017-06-30] MEDS: NYSTATIN TOPICAL POWDER 15 GM TP SCH ×2 (10:30→18:24)
--- NOTE | 2017-06-30 20:47 | PDOC PROGRESS REPORT ---
Subjective Progress Note for:: 06/30/17 Subjective:: Patient remains bedbound, she was admitted for the management of urinary tract infection. No specific pathogen was isolated from the urine, she is empirically on IV antibiotic. She also had episode of acute exacerbation of moderate persistent asthma Reason For Visit: UTI Physical Exam Vital Signs: Temp Pulse Resp BP Pulse Ox 97.6 F 86 20 107/70 98 06/30/17 20:00 06/30/17 20:00 06/30/17 20:00 06/30/17 20:00 06/30/17 20:00 Intake & Output 06/29/17 06/30/17 07/01/17 06:59 06:59 06:59 Intake Total 1620 1731 1056 Output Total 144 649 8152 Balance 1100 821 56 Weight 132.1 kg 123.8 kg General appearance: PRESENT: no acute distress Eye exam: PRESENT: PERRLA Respiratory exam: PRESENT: clear to auscultation luna Cardiovascular exam: PRESENT: +S1, +S2 GI/Abdominal exam: PRESENT: soft Results Laboratory Results: 06/28/17 04:41 06/28/17 04:41 06/25/17 06/25/17 06/26/17 22:55 22:55 05:05 Creatine Kinase 398 H 289 H CK-MB (CK-2) 7.04 H Troponin I < 0.012 06/26/17 06/26/17 06/26/17 05:05 10:58 10:58 Creatine Kinase 197 H CK-MB (CK-2) 6.46 H 3.54 Troponin I < 0.012 < 0.012 Impressions: Chest X-Ray 06/25/17 14:30 IMPRESSION: NO ACUTE RADIOGRAPHIC FINDING IN THE CHEST. Chest CT 06/26/17 00:00 IMPRESSION: No acute findings. Chronic loculated pocket of pleural fluid in the right posterior chest with a rind of pleural thickening and adjacent lung parenchymal scarring. This is unchanged from 12/24/2016. Assessment & Plan - Diagnosis (1) Urinary tract infection Qualifiers: Urinary tract infection type: acute cystitis Hematuria presence: without hematuria Qualified Code(s): N30.00 - Acute cystitis without hematuria Is this a current diagnosis for this admission?: Yes (2) Moderate persistent asthma with (acute) exacerbation Is this a current diagnosis for this admission?: Yes (3) Debilitated patient Is this a current diagnosis for this admission?: Yes (4) Hyponatremia Is this a current diagnosis for this admission?: Yes (5) SIADH (syndrome of inappropriate ADH production) Is this a current diagnosis for this admission?: Yes (6) Constipation Qualifiers: Constipation type: unspecified constipation type Qualified Code(s): K59.00 - Constipation, unspecified Is this a current diagnosis for this admission?: Yes
[2017-06-30] MEDS: TRAZODONE HCL 50 MG TABLET PO SCH (21:07)
[2017-07-01] MEDS: CIPROFLOXACIN HCL 0.3% OPH SOLN 2.5 ML OU SCH ×4 (01:26→18:51)
[2017-07-01] MEDS: DIVALPROEX SODIUM 250 MG TABLET.DR PO SCH ×4 (01:26→18:51)
[2017-07-01] MEDS: DEXTROSE 40% GEL 15 GM TUBE PO PRN ×2 (06:21→06:47)
[2017-07-01] MEDS: LEVOTHYROXINE SODIUM 0.075 MG TABLET PO SCH (06:24)
[2017-07-01] MEDS: LANSOPRAZOLE 30 MG TAB.RAP.DR PO SCH (06:24)
[2017-07-01] MEDS: LEVOTHYROXINE SODIUM 0.1 MG TABLET PO SCH (06:24)
[2017-07-01] MEDS: IPRATROPIUM/ALBUTEROL 0.5-2.5 MG/3 ML AMPUL NEB PRN (09:13)
[2017-07-01] MEDS: ENOXAPARIN SODIUM INJ 40 MG/0.4 ML DISP.SYRIN SUBCUT SCH (09:28)
[2017-07-01] MEDS: ASPIRIN 81 MG TABLET, ENT COATED PO SCH (09:35)
[2017-07-01] MEDS: CEFTRIAXONE 2 GM/D5W RTU 2 GM/50 ML RTUPB IV SCH (09:39)
[2017-07-01] MEDS: NYSTATIN TOPICAL POWDER 15 GM TP SCH ×2 (09:40→18:53)
[2017-07-01] MEDS: NORMAL SALINE 1000 ML 1,000 ML IV PRN (14:35)
[2017-07-01] MEDS ORDERED: FUROSEMIDE INJ/PF 40 MG/4 ML SDV ONE (18:51)
[2017-07-01] MEDS ORDERED: FUROSEMIDE INJ/PF 40 MG/4 ML SDV IV ONE (19:15)
[2017-07-01] MEDS: TRAZODONE HCL 50 MG TABLET PO SCH (22:20)
--- NOTE | 2017-07-01 22:27 | PDOC PROGRESS REPORT ---
Subjective Progress Note for:: 07/01/17 Subjective:: Patient remains bedbound, she was admitted for the management of urinary tract infection. No specific pathogen was isolated from the urine, she is empirically on IV antibiotic. She also had episode of acute exacerbation of moderate persistent asthma Reason For Visit: UTI Physical Exam Vital Signs: Temp Pulse Resp BP Pulse Ox 98.4 F 102 H 18 109/76 98 07/01/17 20:00 07/01/17 20:00 07/01/17 20:00 07/01/17 20:00 07/01/17 20:00 Intake & Output 06/30/17 07/01/17 07/02/17 06:59 06:59 06:59 Intake Total 1731 1176 1410 Output Total 910 1560 400 Balance 821 -384 1010 Weight 123.8 kg 137.7 kg General appearance: PRESENT: no acute distress Eye exam: PRESENT: PERRLA Respiratory exam: PRESENT: clear to auscultation luna Cardiovascular exam: PRESENT: +S1, +S2 Results Laboratory Results: 06/28/17 04:41 06/28/17 04:41 06/25/17 06/25/17 06/26/17 22:55 22:55 05:05 Creatine Kinase 398 H 289 H CK-MB (CK-2) 7.04 H Troponin I < 0.012 06/26/17 06/26/17 06/26/17 05:05 10:58 10:58 Creatine Kinase 197 H CK-MB (CK-2) 6.46 H 3.54 Troponin I < 0.012 < 0.012 Impressions: Chest X-Ray 06/25/17 14:30 IMPRESSION: NO ACUTE RADIOGRAPHIC FINDING IN THE CHEST. Chest CT 06/26/17 00:00 IMPRESSION: No acute findings. Chronic loculated pocket of pleural fluid in the right posterior chest with a rind of pleural thickening and adjacent lung parenchymal scarring. This is unchanged from 12/24/2016. Assessment & Plan - Diagnosis (1) Urinary tract infection Qualifiers: Urinary tract infection type: acute cystitis Hematuria presence: without hematuria Qualified Code(s): N30.00 - Acute cystitis without hematuria Is this a current diagnosis for this admission?: Yes (2) Moderate persistent asthma with (acute) exacerbation Is this a current diagnosis for this admission?: Yes (3) Debilitated patient Is this a current diagnosis for this admission?: Yes (4) Hyponatremia Is this a current diagnosis for this admission?: Yes (5) SIADH (syndrome of inappropriate ADH production) Is this a current diagnosis for this admission?: Yes (6) Constipation Qualifiers: Constipation type: unspecified constipation type Qualified Code(s): K59.00 - Constipation, unspecified Is this a current diagnosis for this admission?: Yes
[2017-07-02] MEDS: CIPROFLOXACIN HCL 0.3% OPH SOLN 2.5 ML OU SCH ×4 (00:03→17:28)
[2017-07-02] MEDS: DIVALPROEX SODIUM 250 MG TABLET.DR PO SCH ×4 (00:03→17:28)
[2017-07-02] MEDS: LANSOPRAZOLE 30 MG TAB.RAP.DR PO SCH (05:36)
[2017-07-02] MEDS: LEVOTHYROXINE SODIUM 0.1 MG TABLET PO SCH (05:36)
[2017-07-02] MEDS: LEVOTHYROXINE SODIUM 0.075 MG TABLET PO SCH (05:36)
[2017-07-02] MEDS: DEXTROSE 40% GEL 15 GM TUBE PO PRN (06:35)
--- NOTE | 2017-07-02 09:25 | OPERATIVE REPORT E ---
Operative Report NAME: NGHIA DAVID : 1950 AGE: 66Y DATE OF SURGERY: 07/02/2017 ROOM: 431 PROCEDURE DONE: Debridement of left lower chest open blister just under the breast. SURGEON: ALESSANDRO BENNETT M.D. DESCRIPTION OF PROCEDURE: The patient was positioned on the left lateral decubitus position with the left side up. The skin over the blister that was already open was subsequently debrided using sharp scissors. The blister roughly measured about 4 cm wide by about 10 cm long. There was dry raw skin underneath the blister and will order Silvadene dressings for this. The patient tolerated the procedure well. DICTATING PHYSICIAN: ALESSANDRO BENNETT M.D. [id number] PHY#: [id number] ID: [id number] JOB#: [id number] ACCT: [id number] cc:ALESSANDRO BENNETT M.D. >
[2017-07-02] MEDS: ASPIRIN 81 MG TABLET, ENT COATED PO SCH (09:35)
[2017-07-02] MEDS: NYSTATIN TOPICAL POWDER 15 GM TP SCH ×2 (09:37→17:28)
[2017-07-02] MEDS: ENOXAPARIN SODIUM INJ 40 MG/0.4 ML DISP.SYRIN SUBCUT SCH (09:38)
[2017-07-02] MEDS: CEFTRIAXONE 2 GM/D5W RTU 2 GM/50 ML RTUPB IV SCH (09:44)
[2017-07-02] MEDS: SILVER SULFADIAZINE 1% CREAM 50 GM TP SCH (18:30)
[2017-07-02 18:50] LABS: UR PRO/CREAT RATIO RESULT 0.6 mg/mg (0.0-0.2); URINE CREATININE 121.5 mg/dL (15-278); URINE PROTEIN 73.5 mg/dL (<12)
[2017-07-02] MEDS: TRAZODONE HCL 50 MG TABLET PO SCH (21:39)
--- NOTE | 2017-07-02 22:06 | PDOC PROGRESS REPORT ---
Subjective Progress Note for:: 07/02/17 Subjective:: Patient essentially bedbound, poor intake, she has hypoalbuminemia associated with third spacing, edema, the urine protein creatinine ratio is 0.7. I had a khoi talk with patient's today about hospice, it seems that she has lost the desire to live, she has not walked in over a year she was referred to rehabilitation last year but despite that there is no improvement in her performance I advised the he needs to consider hospice/palliative care as an option She has bullous dermatitis at the abdominal fold areas due to continuous laying down in bed Reason For Visit: UTI Physical Exam Vital Signs: Temp Pulse Resp BP Pulse Ox 98.3 F 85 20 116/67 99 07/02/17 20:00 07/02/17 20:00 07/02/17 20:00 07/02/17 20:00 07/02/17 20:00 Intake & Output 07/01/17 07/02/17 07/03/17 06:59 06:59 06:59 Intake Total 1176 1560 75 Output Total 1560 3000 Balance -384 -1440 75 Weight 137.7 kg 130.6 kg General appearance: PRESENT: no acute distress Eye exam: PRESENT: PERRLA Respiratory exam: PRESENT: clear to auscultation luna Cardiovascular exam: PRESENT: +S1, +S2 GI/Abdominal exam: PRESENT: soft Extremities exam: PRESENT: pedal edema Neurological exam: PRESENT: alert Results Laboratory Results: 06/28/17 04:41 06/28/17 04:41 06/25/17 06/25/17 06/26/17 22:55 22:55 05:05 Creatine Kinase 398 H 289 H CK-MB (CK-2) 7.04 H Troponin I < 0.012 06/26/17 06/26/17 06/26/17 05:05 10:58 10:58 Creatine Kinase 197 H CK-MB (CK-2) 6.46 H 3.54 Troponin I < 0.012 < 0.012 Impressions: Chest X-Ray 06/25/17 14:30 IMPRESSION: NO ACUTE RADIOGRAPHIC FINDING IN THE CHEST. Chest CT 06/26/17 00:00 IMPRESSION: No acute findings. Chronic loculated pocket of pleural fluid in the right posterior chest with a rind of pleural thickening and adjacent lung parenchymal scarring. This is unchanged from 12/24/2016. Assessment & Plan - Diagnosis (1) Urinary tract infection Qualifiers: Urinary tract infection type: acute cystitis Hematuria presence: without hematuria Qualified Code(s): N30.00 - Acute cystitis without hematuria Is this a current diagnosis for this admission?: Yes (2) Moderate persistent asthma with (acute) exacerbation Is this a current diagnosis for this admission?: Yes (3) Debilitated patient Is this a current diagnosis for this admission?: Yes (4) Hyponatremia Is this a current diagnosis for this admission?: Yes (5) SIADH (syndrome of inappropriate ADH production) Is this a current diagnosis for this admission?: Yes (6) Constipation Qualifiers: Constipation type: unspecified constipation type Qualified Code(s): K59.00 - Constipation, unspecified Is this a current diagnosis for this admission?: Yes (7) Hypoalbuminemia due to protein-calorie malnutrition Is this a current diagnosis for this admission?: Yes
[2017-07-03] MEDS: CIPROFLOXACIN HCL 0.3% OPH SOLN 2.5 ML OU SCH ×3 (00:08→11:08)
[2017-07-03] MEDS: DIVALPROEX SODIUM 250 MG TABLET.DR PO SCH ×5 (00:08→23:40)
[2017-07-03] MEDS: FUROSEMIDE INJ/PF 40 MG/4 ML SDV IV PRN (03:49)
[2017-07-03] MEDS: LANSOPRAZOLE 30 MG TAB.RAP.DR PO SCH (05:42)
[2017-07-03] MEDS: LEVOTHYROXINE SODIUM 0.1 MG TABLET PO SCH (05:42)
[2017-07-03] MEDS: LEVOTHYROXINE SODIUM 0.075 MG TABLET PO SCH (05:42)
[2017-07-03] MEDS: SILVER SULFADIAZINE 1% CREAM 50 GM TP SCH ×2 (10:46→18:19)
[2017-07-03] MEDS: ASPIRIN 81 MG TABLET, ENT COATED PO SCH (10:47)
[2017-07-03] MEDS: NYSTATIN TOPICAL POWDER 15 GM TP SCH ×2 (10:47→18:00)
[2017-07-03] MEDS: ENOXAPARIN SODIUM INJ 40 MG/0.4 ML DISP.SYRIN SUBCUT SCH (10:48)
[2017-07-03] MEDS: CEFTRIAXONE 2 GM/D5W RTU 2 GM/50 ML RTUPB IV SCH (10:49)
--- NOTE | 2017-07-03 11:41 | PDOC PROGRESS REPORT ---
Subjective Progress Note for:: 07/03/17 Subjective:: Patient is currently doing fair Patient is pretty much bedbound conditions and the bedside's Patient is a very poor prognosis with ongoing chronic problems as discussed by the Dr. Crandall with the and again discussed with myself to the patient's today Otherwise denied any chest pain denied any shortness of the breath Reason For Visit: UTI Physical Exam Vital Signs: Temp Pulse Resp BP Pulse Ox 97.6 F 90 18 116/81 97 07/03/17 08:00 07/03/17 08:00 07/03/17 08:00 07/03/17 08:00 07/03/17 09:27 Intake & Output 07/02/17 07/03/17 07/04/17 06:59 06:59 06:59 Intake Total 1560 855 Output Total 3000 2100 Balance -1440 -1245 Weight 130.6 kg 134.3 kg General appearance: PRESENT: no acute distress, obese Eye exam: PRESENT: PERRLA Mouth exam: PRESENT: neck supple Respiratory exam: PRESENT: decreased breath sounds Cardiovascular exam: PRESENT: +S1, +S2 Additional comments: y GI/Abdominal exam: PRESENT: normal bowel sounds, soft Extremities exam: PRESENT: pedal edema Additional comments: Chronic lymphedema in the lower extremity Neurological exam: PRESENT: alert, awake, oriented to person Results Laboratory Results: 06/28/17 04:41 06/28/17 04:41 06/25/17 06/25/17 06/26/17 22:55 22:55 05:05 Creatine Kinase 398 H 289 H CK-MB (CK-2) 7.04 H Troponin I < 0.012 06/26/17 06/26/17 06/26/17 05:05 10:58 10:58 Creatine Kinase 197 H CK-MB (CK-2) 6.46 H 3.54 Troponin I < 0.012 < 0.012 Impressions: Chest X-Ray 06/25/17 14:30 IMPRESSION: NO ACUTE RADIOGRAPHIC FINDING IN THE CHEST. Chest CT 06/26/17 00:00 IMPRESSION: No acute findings. Chronic loculated pocket of pleural fluid in the right posterior chest with a rind of pleural thickening and adjacent lung parenchymal scarring. This is unchanged from 12/24/2016. Assessment & Plan - Diagnosis (1) Debilitated patient Is this a current diagnosis for this admission?: Yes (2) Hypoalbuminemia due to protein-calorie malnutrition Is this a current diagnosis for this admission?: Yes (4) Moderate persistent asthma with (acute) exacerbation Is this a current diagnosis for this admission?: Yes (5) SIADH (syndrome of inappropriate ADH production) Is this a current diagnosis for this admission?: Yes (6) Sepsis Qualifiers: Sepsis type: sepsis due to unspecified organism Qualified Code(s): A41.9 - Sepsis, unspecified organism Is this a current diagnosis for this admission?: Yes (7) Urinary tract infection Qualifiers: Urinary tract infection type: site unspecified Hematuria presence: without hematuria Qualified Code(s): N39.0 - Urinary tract infection, site not specified - Time Time Spent with patient: 15-24 minutes Medications reviewed and adjusted accordingly: Yes Within: Other - Inpatient Certification Medical Necessity: Need Close Monitoring Due to Risk of Patient Decompensation Post Hospital Care: D/C Sweatband Perforator Documentation - Plan Summary Plan Summary: Continues to current medication
[2017-07-03] MEDS: TRAZODONE HCL 50 MG TABLET PO SCH (21:43)
[2017-07-04] MEDS: LEVOTHYROXINE SODIUM 0.075 MG TABLET PO SCH (05:36)
[2017-07-04] MEDS: DIVALPROEX SODIUM 250 MG TABLET.DR PO SCH ×4 (05:36→23:25)
[2017-07-04] MEDS: LANSOPRAZOLE 30 MG TAB.RAP.DR PO SCH (05:36)
[2017-07-04] MEDS: LEVOTHYROXINE SODIUM 0.1 MG TABLET PO SCH (05:36)
--- NOTE | 2017-07-04 10:37 | PDOC PROGRESS REPORT ---
Subjective Progress Note for:: 07/04/17 Subjective:: Patient is currently doing fair Patient is pretty much bedbound conditions and the bedside's Patient is a very poor prognosis with ongoing chronic problems as discussed by the Dr. Crandall with the and again discussed with myself to the patient's today Otherwise denied any chest pain denied any shortness of the breath Reason For Visit: UTI Physical Exam Vital Signs: Temp Pulse Resp BP Pulse Ox 97.6 F 58 L 14 113/90 H 98 07/04/17 04:00 07/04/17 07:00 07/04/17 04:38 07/04/17 04:00 07/04/17 08:23 Intake & Output 07/03/17 07/04/17 07/05/17 06:59 06:59 06:59 Intake Total 855 708 Output Total 2100 1150 Balance -1245 -442 Weight 134.3 kg 137.4 kg General appearance: PRESENT: obese Eye exam: PRESENT: PERRLA Mouth exam: PRESENT: neck supple Respiratory exam: PRESENT: clear to auscultation luna Cardiovascular exam: PRESENT: +S1, +S2 GI/Abdominal exam: PRESENT: normal bowel sounds, soft Extremities exam: PRESENT: pedal edema Neurological exam: PRESENT: alert, awake, oriented to person, oriented to place Results Laboratory Results: 06/28/17 04:41 06/28/17 04:41 06/25/17 06/25/17 06/26/17 22:55 22:55 05:05 Creatine Kinase 398 H 289 H CK-MB (CK-2) 7.04 H Troponin I < 0.012 06/26/17 06/26/17 06/26/17 05:05 10:58 10:58 Creatine Kinase 197 H CK-MB (CK-2) 6.46 H 3.54 Troponin I < 0.012 < 0.012 Impressions: Chest X-Ray 06/25/17 14:30 IMPRESSION: NO ACUTE RADIOGRAPHIC FINDING IN THE CHEST. Chest CT 06/26/17 00:00 IMPRESSION: No acute findings. Chronic loculated pocket of pleural fluid in the right posterior chest with a rind of pleural thickening and adjacent lung parenchymal scarring. This is unchanged from 12/24/2016. Assessment & Plan - Diagnosis (1) Debilitated patient Is this a current diagnosis for this admission?: Yes (2) Hypoalbuminemia due to protein-calorie malnutrition Is this a current diagnosis for this admission?: Yes (4) Moderate persistent asthma with (acute) exacerbation Is this a current diagnosis for this admission?: Yes (5) SIADH (syndrome of inappropriate ADH production) Is this a current diagnosis for this admission?: Yes (6) Sepsis Qualifiers: Sepsis type: sepsis due to unspecified organism Qualified Code(s): A41.9 - Sepsis, unspecified organism Is this a current diagnosis for this admission?: Yes (7) Urinary tract infection Qualifiers: Urinary tract infection type: site unspecified Hematuria presence: without hematuria Qualified Code(s): N39.0 - Urinary tract infection, site not specified Is this a current diagnosis for this admission?: Yes - Time Time Spent with patient: 15-24 minutes Medications reviewed and adjusted accordingly: Yes Anticipated discharge: Other Within: Other - Inpatient Certification Medical Necessity: Need Close Monitoring Due to Risk of Patient Decompensation Post Hospital Care: D/C Card Stripper Documentation - Plan Summary Plan Summary: Continues to current medication
[2017-07-04] MEDS: ENOXAPARIN SODIUM INJ 40 MG/0.4 ML DISP.SYRIN SUBCUT SCH (12:06)
[2017-07-04] MEDS: ASPIRIN 81 MG TABLET, ENT COATED PO SCH (12:07)
[2017-07-04] MEDS: SILVER SULFADIAZINE 1% CREAM 50 GM TP SCH ×2 (12:07→18:42)
[2017-07-04] MEDS: NYSTATIN TOPICAL POWDER 15 GM TP SCH (12:07)
[2017-07-04] MEDS: TRAZODONE HCL 50 MG TABLET PO SCH (23:25)
[2017-07-05] MEDS: FUROSEMIDE INJ/PF 40 MG/4 ML SDV IV PRN (03:38)
[2017-07-05] MEDS: DIVALPROEX SODIUM 250 MG TABLET.DR PO SCH ×3 (05:45→17:58)
[2017-07-05] MEDS: LEVOTHYROXINE SODIUM 0.075 MG TABLET PO SCH (05:45)
[2017-07-05] MEDS: LEVOTHYROXINE SODIUM 0.1 MG TABLET PO SCH (05:45)
[2017-07-05] MEDS: LANSOPRAZOLE 30 MG TAB.RAP.DR PO SCH (05:45)
[2017-07-05] MEDS: ASPIRIN 81 MG TABLET, ENT COATED PO SCH (09:54)
[2017-07-05] MEDS: SILVER SULFADIAZINE 1% CREAM 50 GM TP SCH ×2 (09:54→18:00)
[2017-07-05] MEDS: ENOXAPARIN SODIUM INJ 40 MG/0.4 ML DISP.SYRIN SUBCUT SCH (09:55)
[2017-07-05] MEDS: ACETAMINOPHEN 325 MG TABLET PO PRN (14:26)
--- NOTE | 2017-07-05 20:33 | PDOC PROGRESS REPORT ---
Subjective Progress Note for:: 07/05/17 Subjective:: She was seen by the bedside, on Wednesday I discussed with patient spouse regarding hospice as an option of care for this patient, the spouse is agreeable to that option, consultation will be requested from discharge planning to arrange for hospice care for this patient. As indicated in my previous notes, she has not walked in over a year, there is reduced intake, there is associated hypoalbuminemia. She underwent physical therapy/ rehabilitation without much of an impact. At this stage of her disease it is probably best for her to be hospice Reason For Visit: UTI Physical Exam Vital Signs: Temp Pulse Resp BP Pulse Ox 98.2 F 72 18 110/60 97 07/05/17 11:40 07/05/17 14:00 07/05/17 11:40 07/05/17 11:40 07/05/17 11:40 Intake & Output 07/04/17 07/05/17 07/06/17 06:59 06:59 06:59 Intake Total 708 1211 240 Output Total 1150 1175 2650 Balance -442 36 -2410 Weight 137.4 kg 137.4 kg General appearance: PRESENT: no acute distress Eye exam: PRESENT: PERRLA Respiratory exam: PRESENT: clear to auscultation luna Cardiovascular exam: PRESENT: +S1, +S2 GI/Abdominal exam: PRESENT: soft Neurological exam: PRESENT: alert Results Laboratory Results: 06/28/17 04:41 06/28/17 04:41 06/25/17 06/25/17 06/26/17 22:55 22:55 05:05 Creatine Kinase 398 H 289 H CK-MB (CK-2) 7.04 H Troponin I < 0.012 06/26/17 06/26/17 06/26/17 05:05 10:58 10:58 Creatine Kinase 197 H CK-MB (CK-2) 6.46 H 3.54 Troponin I < 0.012 < 0.012 Impressions: Chest X-Ray 06/25/17 14:30 IMPRESSION: NO ACUTE RADIOGRAPHIC FINDING IN THE CHEST. Chest CT 06/26/17 00:00 IMPRESSION: No acute findings. Chronic loculated pocket of pleural fluid in the right posterior chest with a rind of pleural thickening and adjacent lung parenchymal scarring. This is unchanged from 12/24/2016. Assessment & Plan - Diagnosis (1) Urinary tract infection Qualifiers: Urinary tract infection type: acute cystitis Hematuria presence: without hematuria Qualified Code(s): N30.00 - Acute cystitis without hematuria Is this a current diagnosis for this admission?: Yes (2) Moderate persistent asthma with (acute) exacerbation Is this a current diagnosis for this admission?: Yes (3) Debilitated patient Is this a current diagnosis for this admission?: Yes (4) Hyponatremia Is this a current diagnosis for this admission?: Yes (5) SIADH (syndrome of inappropriate ADH production) Is this a current diagnosis for this admission?: Yes (6) Constipation Qualifiers: Constipation type: unspecified constipation type Qualified Code(s): K59.00 - Constipation, unspecified Is this a current diagnosis for this admission?: Yes (7) Hypoalbuminemia due to protein-calorie malnutrition Is this a current diagnosis for this admission?: Yes
[2017-07-05] MEDS: TRAZODONE HCL 50 MG TABLET PO SCH (21:37)
[2017-07-06] MEDS: DIVALPROEX SODIUM 250 MG TABLET.DR PO SCH ×5 (01:00→23:35)
[2017-07-06] MEDS: FUROSEMIDE INJ/PF 40 MG/4 ML SDV IV PRN (03:53)
[2017-07-06] MEDS: LEVOTHYROXINE SODIUM 0.1 MG TABLET PO SCH (05:59)
[2017-07-06] MEDS: LANSOPRAZOLE 30 MG TAB.RAP.DR PO SCH (05:59)
[2017-07-06] MEDS: LEVOTHYROXINE SODIUM 0.075 MG TABLET PO SCH (06:00)
[2017-07-06] MEDS: ENOXAPARIN SODIUM INJ 40 MG/0.4 ML DISP.SYRIN SUBCUT SCH (11:37)
[2017-07-06] MEDS: ASPIRIN 81 MG TABLET, ENT COATED PO SCH (11:37)
[2017-07-06] MEDS: SILVER SULFADIAZINE 1% CREAM 50 GM TP SCH ×2 (11:37→17:29)
--- NOTE | 2017-07-06 19:59 | PDOC DISCHARGE SUMMARY ---
General - Admit/Disc Date/PCP Admission Date/Primary Care Provider: 06/25/17 20:43 SHA BRAVO MD Discharge Date: 07/07/17 - Discharge Diagnosis (1) Urinary tract infection Is this a current diagnosis for this admission?: Yes (2) Moderate persistent asthma with (acute) exacerbation Is this a current diagnosis for this admission?: Yes (3) Debilitated patient Is this a current diagnosis for this admission?: Yes (4) Hyponatremia Is this a current diagnosis for this admission?: Yes (5) SIADH (syndrome of inappropriate ADH production) Is this a current diagnosis for this admission?: Yes (6) Constipation Is this a current diagnosis for this admission?: Yes (7) Hypoalbuminemia due to protein-calorie malnutrition Is this a current diagnosis for this admission?: Yes (8) Morbid (severe) obesity due to excess calories Is this a current diagnosis for this admission?: Yes - Additional Information Home Medications: Aspirin [Aspirin EC] 81 mg PO DAILY 06/25/17 Divalproex Sodium [Depakote] 250 mg PO QID 06/25/17 Levothyroxine Sodium [Synthroid] 175 mcg PO Q6AM 06/25/17 Omeprazole 40 mg PO DAILY 06/25/17 Trazodone HCl [Desyrel] 100 mg PO QHS 06/25/17 History of Present Illness History of Present Illness: NGHIA DAVID is a 66 year old female, she is chronically debilitated, homebound essentially sedentary she was brought to the emergency room by who also is the caregiver low oxygen saturation, persistent cough, patient's stated that the oxygen saturation was 78%, she normally uses oxygen at home at 2 L he called the rescue squad on she was transferred to the emergency room for evaluation. The emergency room she was evaluated she was found to have tachycardia with diffuse coarse breath sounds on auscultation of the chest also found was leukocytosis, grossly abnormal urinalysis that suggest UTI the chest x-ray that was done did not show any focal infiltrate. Blood gas was done on room air PO2 76.8 pH 7.45 bicarbonate 29.6 PCO2 31, CT chest without contrast was done he showed no acute infiltrates, there is a chronic loculated pocket of pleural fluid in the right posterior chest unchanged from measures 10 cm the craniocaudad dimension there is no definite infiltrate to suggest pneumonia patient is bedbound essentially nonfunctioning, she does not ambulate. She was also found to have hyponatremia, the urine osmolality was high more than 100, the hyponatremia is of SIADH type. She has a history of asthma Hospital Course Hospital Course: .Patient with chronic debilitation, bedbound, morbidly obese with hypoalbuminemia due to poor intake, she was admitted for the management of urinary tract infection, hyponatremia due to SIADH. Patient is nonambulatory, remains bedbound throughout hospital stay, treated empirically with IV antibiotic, no specific pathogen was isolated from the urine or from the blood. Patient did not particularly take part in physical therapy. She is nonambulatory for the last over a year she was in rehabilitation and physical therapy in the correction without much improvement in her performance. patient spouse is the primary caregiver he is overwhelmed physically and mentally taking care of this patient who . essentially refuses to make any effort to get better. After prolonged discussion with family it was concluded that she is better served to have her care transition to hospice. Patient's family is in agreement with this plan Physical Exam Vital Signs: Temp Pulse Resp BP Pulse Ox 97.8 F 74 16 105/70 99 07/06/17 16:00 07/06/17 16:00 07/06/17 16:00 07/06/17 16:00 07/06/17 16:00 Intake & Output 07/05/17 07/06/17 07/07/17 06:59 06:59 06:59 Intake Total 1211 590 236 Output Total 1175 4025 1300 Balance 36 -2765 -4925 Weight 137.4 kg 133.3 kg General appearance: PRESENT: no acute distress, morbidly obese Eye exam: PRESENT: PERRLA Respiratory exam: PRESENT: clear to auscultation luna Cardiovascular exam: PRESENT: +S1, +S2 GI/Abdominal exam: PRESENT: soft Neurological exam: PRESENT: alert Results Laboratory Results: 06/28/17 04:41 06/28/17 04:41 06/25/17 06/25/17 06/26/17 22:55 22:55 05:05 Creatine Kinase 398 H 289 H CK-MB (CK-2) 7.04 H Troponin I < 0.012 06/26/17 06/26/17 06/26/17 05:05 10:58 10:58 Creatine Kinase 197 H CK-MB (CK-2) 6.46 H 3.54 Troponin I < 0.012 < 0.012 Impressions: Chest X-Ray 06/25/17 14:30 IMPRESSION: NO ACUTE RADIOGRAPHIC FINDING IN THE CHEST. Chest CT 06/26/17 00:00 IMPRESSION: No acute findings. Chronic loculated pocket of pleural fluid in the right posterior chest with a rind of pleural thickening and adjacent lung parenchymal scarring. This is unchanged from 12/24/2016. Qualifiers - * PATEINT BEING DISCHARGED WITH ANY OF THE FOLLOWING DIAGNOSIS?: No VTE patient discharged on overlapping Therapy?: Yes
--- NOTE | 2017-07-06 20:01 | PDOC PROGRESS REPORT ---
Subjective Progress Note for:: 07/06/17 Subjective:: She was seen by the bedside, she will be discharged home with hospice tomorrow Reason For Visit: UTI Physical Exam Vital Signs: Temp Pulse Resp BP Pulse Ox 97.8 F 85 16 105/70 99 07/06/17 16:00 07/06/17 19:00 07/06/17 16:00 07/06/17 16:00 07/06/17 16:00 Intake & Output 07/05/17 07/06/17 07/07/17 06:59 06:59 06:59 Intake Total 1211 590 236 Output Total 1175 4025 1300 Balance 36 -8194 -4204 Weight 137.4 kg 133.3 kg General appearance: PRESENT: no acute distress Eye exam: PRESENT: PERRLA Respiratory exam: PRESENT: clear to auscultation luna Cardiovascular exam: PRESENT: +S1, +S2 GI/Abdominal exam: PRESENT: soft Results Laboratory Results: 06/28/17 04:41 06/28/17 04:41 06/25/17 06/25/17 06/26/17 22:55 22:55 05:05 Creatine Kinase 398 H 289 H CK-MB (CK-2) 7.04 H Troponin I < 0.012 06/26/17 06/26/17 06/26/17 05:05 10:58 10:58 Creatine Kinase 197 H CK-MB (CK-2) 6.46 H 3.54 Troponin I < 0.012 < 0.012 Impressions: Chest X-Ray 06/25/17 14:30 IMPRESSION: NO ACUTE RADIOGRAPHIC FINDING IN THE CHEST. Chest CT 06/26/17 00:00 IMPRESSION: No acute findings. Chronic loculated pocket of pleural fluid in the right posterior chest with a rind of pleural thickening and adjacent lung parenchymal scarring. This is unchanged from 12/24/2016. Assessment & Plan - Diagnosis (1) Urinary tract infection Qualifiers: Urinary tract infection type: acute cystitis Hematuria presence: without hematuria Qualified Code(s): N30.00 - Acute cystitis without hematuria Is this a current diagnosis for this admission?: Yes (2) Moderate persistent asthma with (acute) exacerbation Is this a current diagnosis for this admission?: Yes (3) Debilitated patient Is this a current diagnosis for this admission?: Yes (4) Hyponatremia Is this a current diagnosis for this admission?: Yes (5) SIADH (syndrome of inappropriate ADH production) Is this a current diagnosis for this admission?: Yes (6) Constipation Qualifiers: Constipation type: unspecified constipation type Qualified Code(s): K59.00 - Constipation, unspecified Is this a current diagnosis for this admission?: Yes (7) Hypoalbuminemia due to protein-calorie malnutrition Is this a current diagnosis for this admission?: Yes (8) Morbid (severe) obesity due to excess calories Is this a current diagnosis for this admission?: Yes
[2017-07-06] MEDS: TRAZODONE HCL 50 MG TABLET PO SCH (21:30)
[2017-07-07] MEDS: FUROSEMIDE INJ/PF 40 MG/4 ML SDV IV PRN (04:14)
[2017-07-07] MEDS: LEVOTHYROXINE SODIUM 0.1 MG TABLET PO SCH (05:59)
[2017-07-07] MEDS: LANSOPRAZOLE 30 MG TAB.RAP.DR PO SCH (05:59)
[2017-07-07] MEDS: DIVALPROEX SODIUM 250 MG TABLET.DR PO SCH (05:59)
[2017-07-07] MEDS: LEVOTHYROXINE SODIUM 0.075 MG TABLET PO SCH (05:59)
[2017-07-07] MEDS: SILVER SULFADIAZINE 1% CREAM 50 GM TP SCH (10:46)
[2017-07-07] MEDS: ASPIRIN 81 MG TABLET, ENT COATED PO SCH (10:47)
[2017-07-07] MEDS: ENOXAPARIN SODIUM INJ 40 MG/0.4 ML DISP.SYRIN SUBCUT SCH (10:47)
[2017-07-07 12:18] VITALS: BP 105/70
== END 2017-07-07 13:12 | disposition hospice, home (50) | DRG 690 ==
LOC: ER 14:24 → EH 20:43 → 4S 23:22
PROVIDERS: ADMIT Internal Medicine; ATTEND Internal Medicine
PROC: 5A09457 Assistance with Respiratory Ventilation, 24-96 Consecutive Hours, Continuous Positive Airway Pressure (ICD-10-PCS; principal; 2017-06-27)
PROC: 3E0F73Z Introduction of Anti-inflammatory into Respiratory Tract, Via Natural or Artificial Opening (ICD-10-PCS; 2017-07-01)
PROC: 0HD5XZZ Extraction of Chest Skin, External Approach (ICD-10-PCS; 2017-07-02)
DX: N30.00 Acute cystitis without hematuria (principal); J45.41 Moderate persistent asthma with (acute) exacerbation; E22.2 Syndrome of inappropriate secretion of antidiuretic hormone; E46 Unspecified protein-calorie malnutrition; Z68.43 Body mass index [BMI] 50.0-59.9, adult; E66.01 Morbid (severe) obesity due to excess calories; K59.00 Constipation, unspecified; E88.09 Other disorders of plasma-protein metabolism, not elsewhere classified; I10 Essential (primary) hypertension; G40.909 Epilepsy, unspecified, not intractable, without status epilepticus; E11.9 Type 2 diabetes mellitus without complications; E03.9 Hypothyroidism, unspecified; M19.90 Unspecified osteoarthritis, unspecified site; F32.9 Major depressive disorder, single episode, unspecified; S20.322A Blister (nonthermal) of left front wall of thorax, initial encounter; X58.XXXA Exposure to other specified factors, initial encounter; I45.10 Unspecified right bundle-branch block; Z99.81 Dependence on supplemental oxygen; Z74.01 Bed confinement status; Z90.49 Acquired absence of other specified parts of digestive tract; Z87.891 Personal history of nicotine dependence; Z79.82 Long term (current) use of aspirin; Z79.899 Other long term (current) drug therapy; Z88.3 Allergy status to other anti-infective agents; Z91.041 Radiographic dye allergy status
CPT/HCPCS: 36415; 36600; 51702; 71045; 71250; 80048; 80053; 80076; 81001; 82550; 82553; 82570; 82803; 82962; 83605; 83735; 83880; 83930; 83935; 84100; 84156; 84439; 84443; 84484; 85025; 85379; 85610; 87040; 87077; 87804; 93005; 93010; 94640; 94660; 96360; 99285; C1751; J0696; J1650; J1815; J1940; J3490; J7030; J7620